=== PATIENT | male | born 1940 | race Caucasian/White ===

== ENCOUNTER 2018-06-11 20:46 | Emergency (ER) | payer OTHER ==
[~2018-06-11] VITALS: Ht 177.8 cm; Wt 93.1 kg
[2018-06-11 20:49] VITALS: TEMP 36.8; Ht 177.8 cm; Wt 93.1 kg
[2018-06-11 21:18] LABS: BASO % 0.3 %; BASO ABS # 0.02 K/uL (0-0.2); EOS % 2.9 %; IG# 0.03 K/uL (0.00-0.02); LYMPH % 27.8 %; LYMPH ABS # 1.94 K/uL (1.2-3.4); MEAN CELL VOLUME 95.9 fL (80-100); MEAN CORPUSCULAR HEMOGLOBIN 32.9 pg (25-34); MEAN CORPUSCULAR HGB CONC 34.3 g/dl (32-36); MEAN PLATELET VOLUME 9.1 fL (7.4-10.4); MONO % 11.2 %; MONO ABS # 0.78 K/uL (0.11-0.59); NEUT % 57.4 %; NEUT ABS # 4.01 K/uL (1.4-6.5); PLATELET COUNT 412 K/uL (130-400); RED CELL DISTRIBUTION WIDTH CV 12.1 % (11.5-14.5); RED CELL DISTRIBUTION WIDTH SD 42.1 fL (36.4-46.3); WHITE BLOOD COUNT 6.98 K/uL (4.8-10.8)
[2018-06-11 21:40] LABS: ALBUMIN 3.3 gm/dl (3.4-5.0); CALCIUM 10.4 mg/dl (8.5-10.1); POTASSIUM 4.4 mmol/L (3.5-5.1); TOTAL PROTEIN 8.3 gm/dl (6.4-8.2)
--- NOTE | 2018-06-11 22:15 | DIAGNOSTIC IMAGING REPORT ---
CT OF THE ABDOMEN AND PELVIS WITHOUT CONTRAST CLINICAL HISTORY: Right-sided abdominal pain. COMPARISON STUDY: No previous studies for comparison. TECHNIQUE: Axial images of the abdomen and pelvis were obtained without IV contrast. Images were reviewed in the axial, sagittal, and coronal planes. A dose lowering technique was utilized adhering to the principles of ALARA. FINDINGS: Lung bases are clear. No renal, ureteral or bladder calculi are present. There is no biliary ductal dilatation status post cholecystectomy. Evaluation of the abdomen and pelvis is suboptimal on this unenhanced exam. The liver is mildly enlarged. There is mild heterogeneity of the liver. This may reflect mild fatty infiltration. Unenhanced images of the spleen, adrenal glands and pancreas are normal. There is no evidence for a bowel obstruction. Extensive colonic diverticulosis is noted. There is possible mild infiltration adjacent to the distal descending colon. There is no free air or abscess. No suspicious osseous lesion is present. Prostate is moderately enlarged. A loop of small bowel slightly extends into a right inguinal hernia. There is no evidence for a bowel obstruction. Mild dextroscoliosis of the lumbar spine is incidentally noted. The appendix is not visualized and may be surgically absent. Extensive sigmoid diverticulosis. Equivocal infiltration adjacent to the distal sigmoid colon may reflect mild acute diverticulitis. No free air or abscess. IMPRESSION: 1. No urinary calculi or hydronephrosis. 2. No bowel obstruction. 3. Extensive sigmoid diverticulosis. Equivocal infiltration adjacent to the distal sigmoid colon may reflect mild acute diverticulitis. No free air or abscess. 4. Mild hepatomegaly and heterogeneity liver which may reflect fatty infiltration. Electronically signed by: Fredo Mckeon M.D. 06/11/2018 10:13 PM Dictated Date/Time: 06/11/2018 10:03 PM
--- NOTE | 2018-06-11 22:19 | EMERGENCY ROOM VISIT NOTE ---
History First contact with patient: 20:54 Chief Complaint: GI ASSESSMENT Stated Complaint: PAIN IN RIGHT SIDE Nursing Triage Summary: Pt reports constant RUQ abdominal pain for 4 days. Denies N/V/D. Pt reports hx of constipation with use of laxatives and stool softeners. Reports he had a large BM today. Reports he had his gallbladder and appendix surgically removed. History of Present Illness The patient is a 77 year old male who presents to the Emergency Room with complaints of right-sided abdominal pain for the past 4 days. The patient states that he has had a constant, dull pain in the right side of his abdomen. He rates the pain a 5/10. He states the pain worsens when he is sitting straight up. He denies any associated nausea/vomiting, constipation, diarrhea, pain with defecation, urinary symptoms, fever/chills, hematochezia or melena. He has had a previous appendectomy and cholecystectomy. Review of Systems A complete 10 point review of systems was reviewed with the patient with pertinent positives and negatives as per history of present illness. All else were negative. Past Medical/Surgical History Medical Problems: (1) Diabetes mellitus, type II (2) Hypertension Surgical Problems: (1) History of appendectomy (2) History of cholecystectomy Social History Smoking Status: Never Smoker Housing Status: lives with family Current/Historical Medications Scheduled Ciprofloxacin Hcl (Cipro), 500 MG PO BID Metronidazole (Flagyl), 500 MG PO TID Physical Exam Vital Signs Date Time Temp Pulse Resp B/P (MAP) Pulse Ox O2 Delivery O2 Flow Rate FiO2 06/11/18 23:18 06/11/18 22:50 83 16 143/84 92 Room Air 06/11/18 20:49 36.8 102 18 153/90 94 Room Air Physical Exam VITALS: Vitals are noted on the nurse's note and reviewed by myself. Vital signs stable. GENERAL: This is a 77-year-old male, in no acute distress, nondiaphoretic, well- developed well-nourished. SKIN: The skin was without rashes. HEART: Regular rate and rhythm without murmurs gallops or rubs. LUNGS: Clear to auscultation bilaterally without wheezes, rales or rhonchi. ABDOMEN: Positive bowel sounds x 4. Soft, nondistended. There is moderate tenderness to palpation in the right mid abdomen. No guarding or rebound tenderness. NEURO: Patient was alert and oriented to person place and time. Medical Decision & Procedures ER Provider Diagnostic Interpretation: CT OF THE ABDOMEN AND PELVIS WITHOUT CONTRAST CLINICAL HISTORY: Right-sided abdominal pain. COMPARISON STUDY: No previous studies for comparison. TECHNIQUE: Axial images of the abdomen and pelvis were obtained without IV contrast. Images were reviewed in the axial, sagittal, and coronal planes. A dose lowering technique was utilized adhering to the principles of ALARA. FINDINGS: Lung bases are clear. No renal, ureteral or bladder calculi are present. There is no biliary ductal dilatation status post cholecystectomy. Evaluation of the abdomen and pelvis is suboptimal on this unenhanced exam. The liver is mildly enlarged. There is mild heterogeneity of the liver. This may reflect mild fatty infiltration. Unenhanced images of the spleen, adrenal glands and pancreas are normal. There is no evidence for a bowel obstruction. Extensive colonic diverticulosis is noted. There is possible mild infiltration adjacent to the distal descending colon. There is no free air or abscess. No suspicious osseous lesion is present. Prostate is moderately enlarged. A loop of small bowel slightly extends into a right inguinal hernia. There is no evidence for a bowel obstruction. Mild dextroscoliosis of the lumbar spine is incidentally noted. The appendix is not visualized and may be surgically absent. Extensive sigmoid diverticulosis. Equivocal infiltration adjacent to the distal sigmoid colon may reflect mild acute diverticulitis. No free air or abscess. IMPRESSION: 1. No urinary calculi or hydronephrosis. 2. No bowel obstruction. 3. Extensive sigmoid diverticulosis. Equivocal infiltration adjacent to the distal sigmoid colon may reflect mild acute diverticulitis. No free air or abscess. 4. Mild hepatomegaly and heterogeneity liver which may reflect fatty infiltration. Laboratory Results 06/11/18 21:00 Red Blood Count 3.65, Mean Corpuscular Volume 95.9, Mean Corpuscular Hemoglobin 32.9, Mean Corpuscular Hemoglobin Concent 34.3, Mean Platelet Volume 9.1, Neutrophils (%) (Auto) 57.4, Lymphocytes (%) (Auto) 27.8, Monocytes (%) (Auto) 11.2, Eosinophils (%) (Auto) 2.9, Basophils (%) (Auto) 0.3, Neutrophils # (Auto ) 4.01, Lymphocytes # (Auto) 1.94, Monocytes # (Auto) 0.78, Eosinophils # (Auto ) 0.20, Basophils # (Auto) 0.02 06/11/18 21:00 Test 06/11/18 21:00 06/11/18 21:15 White Blood Count 6.98 K/uL (4.8-10.8) Red Blood Count 3.65 M/uL (4.7-6.1) Hemoglobin 12.0 g/dL (14.0-18.0) Hematocrit 35.0 % (42-52) Mean Corpuscular Volume 95.9 fL (80-100) Mean Corpuscular Hemoglobin 32.9 pg (25-34) Mean Corpuscular Hemoglobin Concent 34.3 g/dl (32-36) Platelet Count 412 K/uL (130-400) Mean Platelet Volume 9.1 fL (7.4-10.4) Neutrophils (%) (Auto) 57.4 % Lymphocytes (%) (Auto) 27.8 % Monocytes (%) (Auto) 11.2 % Eosinophils (%) (Auto) 2.9 % Basophils (%) (Auto) 0.3 % Neutrophils # (Auto) 4.01 K/uL (1.4-6.5) Lymphocytes # (Auto) 1.94 K/uL (1.2-3.4) Monocytes # (Auto) 0.78 K/uL (0.11-0.59) Eosinophils # (Auto) 0.20 K/uL (0-0.5) Basophils # (Auto) 0.02 K/uL (0-0.2) RDW Standard Deviation 42.1 fL (36.4-46.3) RDW Coefficient of Variation 12.1 % (11.5-14.5) Immature Granulocyte % (Auto) 0.4 % Immature Granulocyte # (Auto) 0.03 K/uL (0.00-0.02) Anion Gap 7.0 mmol/L (3-11) Est Creatinine Clear Calc Drug Dose 69.8 ml/min Estimated GFR () 83.2 Estimated GFR (Non- 71.8 BUN/Creatinine Ratio 19.5 (10-20) Calcium Level 10.4 mg/dl (8.5-10.1) Total Bilirubin 0.3 mg/dl (0.2-1) Aspartate Amino Transf (AST/SGOT) 27 U/L (15-37) Alanine Aminotransferase (ALT/SGPT) 55 U/L (12-78) Alkaline Phosphatase 249 U/L (45-117) Total Protein 8.3 gm/dl (6.4-8.2) Albumin 3.3 gm/dl (3.4-5.0) Globulin 5.0 gm/dl (2.5-4.0) Albumin/Globulin Ratio 0.7 (0.9-2) Lipase 174 U/L (73-393) Urine Color YELLOW Urine Appearance CLEAR (CLEAR) Urine pH 6.5 (4.5-7.5) Urine Specific [place] 1.026 (1.000-1.030) Urine Protein NEG (NEG) Urine Glucose (UA) NEG (NEG) Urine Ketones NEG (NEG) Urine Occult Blood NEG (NEG) Urine Nitrite NEG (NEG) Urine Bilirubin NEG (NEG) Urine Urobilinogen NEG (NEG) Urine Leukocyte Esterase NEG (NEG) Medications Administered Medications (Trade) Dose Ordered Sig/Mily Route Start Time Stop Time Status Last Admin Dose Admin Ciprofloxacin (Cipro 500MG Home Pack) 1 homepack UD ONCE PO 06/11/18 22:45 06/11/18 22:46 DC 06/11/18 23:12 1 HOMEPACK Metronidazole (Flagyl Tab) 1,000 mg NOW STAT PO 06/11/18 22:40 06/11/18 22:41 DC 06/11/18 23:12 1,000 MG Medical Decision Differential diagnosis includes bowel obstruction, gastritis, colitis, diverticulitis, constipation, herpes zoster, among others. The patient is a 77-year-old male who presents today complaining of right-sided abdominal pain. Labs revealed no leukocytosis. There is a stable anemia. Glucose is elevated. Patient admits that his glucose has been elevated on many recent visits. He is currently taking metformin. CT of the abdomen without contrast was performed due to patient's allergy. This was read by radiology and did show evidence of diverticulitis. This may be responsible for the patient's pain. He will be placed on ciprofloxacin and Flagyl. He was advised to follow-up with his PCP this week for a recheck. The patient was independently evaluated by Dr. Kyle, ED attending physician, who agreed with my assessment and treatment plan. Based on the patient's presentation and work up, I feel the patient is stable for outpatient treatment. The patient was educated to return to the emergency department for any worsening of their current condition or new/concerning symptoms. He will follow up with his PCP. Medication Reconcilliation Current Medication List: was personally reviewed by me Blood Pressure Screening Patient's blood pressure: Elevated blood pressure Blood pressure disposition: Elevated BP felt to be situational Impression Primary Impression: Diverticulitis Departure Information Dispostion Home / Self-Care Condition GOOD Prescriptions Metronidazole (Flagyl) 500 Mg Tab 500 MG PO TID for 10 Days, #30 TAB Prov: Letitia Dunlap PA-C 06/11/18 Ciprofloxacin Hcl (CIPRO) 500 Mg Tab 500 MG PO BID for 10 Days, #20 TAB Prov: Letitia Dunlap PA-C 06/11/18 Referrals Eriberto Mendoza M.D. (PCP) Patient Instructions My [facility] Additional Instructions You have been treated in the Emergency Department for your Abdominal Pain. CT scan showed evidence of diverticulitis. You were prescribed ciprofloxacin to be taken twice daily as prescribed. This is an antibiotic. All antibiotics have the potential to cause diarrhea. Stop this medication and contact a medical provider if you were to develop any significant adverse side effects including: wheezing, shortness of breath, passing out, vomiting, or a diffuse rash. Always take antibiotics as directed and COMPLETE the ENTIRE course regardless of the improvement of your symptoms. You were prescribed Flagyl to be taken 3 times daily as prescribed. This is an antibiotic. All antibiotics have the potential to cause diarrhea. Stop this medication and contact a medical provider if you were to develop any significant adverse side effects including: wheezing, shortness of breath, passing out, vomiting, or a diffuse rash. Always take antibiotics as directed and COMPLETE the ENTIRE course regardless of the improvement of your symptoms. Do not drink any alcohol with this medication, as it will make you very sick. For pain control, you can use the following [id number] medicines (if >12 yo): - Regular strength (325mg/tab) Tylenol (acetaminophen) 2 tabs every 4-6 hours as needed. Do not exceed 12 tablets in a 24 hour period. Avoid taking more than 4 grams (4000 mg) of Tylenol per day. This includes any other sources of acetaminophen you may take on a regular basis. - Regular strength (200 mg/tab) Advil (ibuprofen) 1-2 tabs every 4-6 hours as needed. Do not exceed a dose of 3200 mg per day. Drink plenty of water and stay well hydrated. If you are able to keep a clear liquid diet for the next 48 hours, you may see improvement of your symptoms. As with any trip to the Emergency Department, you should follow-up with your Primary Care Provider from today's visit. Contact Dr. Mendoza's office to schedule follow-up next week. Return to the emergency department if your symptoms persist despite treatment plan outlined above or if the following symptoms occur: Worsening abdominal pain , vomiting, fevers or any other new/concerning symptoms.
[2018-06-11] MEDS ORDERED: CIPR-255 PO (22:39)
[2018-06-11] MEDS ORDERED: METR-163 PO (22:39)
[2018-06-11] MEDS ORDERED: METRONIDAZOLE 250 MG TAB PO STA (22:40)
[2018-06-11] MEDS ORDERED: CIPROFLOXACIN 500MG HOME PACK PO ONE (22:45)
[2018-06-11 22:50] VITALS: BP 143/84; PULSE 83; O2SAT 92
[2018-06-11] MEDS ORDERED: EMPTY 8 DRAM VIAL ONE (22:54)
== END 2018-06-11 23:18 | disposition home or self-care (01) ==
LOC: C.EDB 20:48
DX: K57.32 Diverticulitis of large intestine without perforation or abscess without bleeding (principal); E11.65 Type 2 diabetes mellitus with hyperglycemia; I10 Essential (primary) hypertension

== ENCOUNTER 2021-09-06 16:31 | Inpatient (IN) ==
--- NOTE | 2021-09-06 16:42 | Emergency Department Note ---
Impression & Plan Falls Admission ED Provider Note HPI: The patient is an 81-year-old male who presents the emergency department the chief complaint of confusion. On arrival the patient is unable to provide me with much history, he is in the room by himself. He is oriented to place, he is oriented to self, he is unsure of the year, he is unsure of how old he is. On arrival to the ED the patient is hemodynamically stable, he is resting comfortably and otherwise in no acute physical distress. I did speak on the phone with patient's sister, Ros, she tells me that the patient fell this morning. They were reportedly able to get him up and back into his bed however later in the day he was increasingly confused and not at his baseline. He does have a history of dementia but she tells me that this was worse than usual. Therefore he was brought to the emergency room for further evaluation. ROS: -Neuro: Confusion beyond baseline -MSK: Ambulatory dysfunction, multiple falls *10 point review systems was conducted and is otherwise negative unless stated above *Outpatient medications and allergy history reviewed PE: General: Frail-appearing, alert, NAD HEENT: Normocephalic, atraumatic, trachea midline Eyes: Extraocular eye movement is intact, no scleral erythema Pulmonary: Clear to auscultation bilaterally, no wheezing Cardio: Regular rate and rhythm GI: Abdomen is soft, nontender : No suprapubic tenderness MSK: No evidence of trauma or malformation of the extremities, no edema, maintains flexion at the hips bilaterally without pain Skin: No evidence of rash Neuro: Alert, no focal deficits Psychiatric: Cooperative phototypesetting equipment monitor: Order placed, patient is in sinus rhythm on the monitor EKG: Time: 1651 Rate: 75 Rhythm: Sinus rhythm Intervals: PA interval 244, QRS 132, QTc 451 ST changes: No ST elevation Medical Decision Making: Patient presented to the emergency department with some confusion beyond baseline, increased ambulatory dysfunction at home, he has had multiple falls. Here in the ED his lab work does not show any evidence of leukocytosis, his lactic acid was slightly elevated, he was given IV fluids in the ED. Lab work is otherwise largely reassuring. Patient was given some IV fluids in the ED and his blood pressure which was somewhat borderline/soft in the high 90s systolic did improve to greater than 100 systolic. He remains in no respiratory distress, he is saturating well on room air. He is afebrile. Urinalysis does not show any evidence of infection. CT imaging of the head does not show any evidence of acute traumatic injuries, chest x-ray does not show any evidence of rib fractures or pneumothorax. On my reassessment the patient appears well, he is resting in bed. I discussed all the above findings with the patient's daughter at the bedside, she tells me that the patient lives at home with his elderly who is in a wheelchair and is unable to take care of him. He does have aides that come to the house daily but she states that he is no longer safe to be living at home and the family is interested in possibly placing him in a nursing facility. I discussed the above findings with the on-call hospitalist who accepted the patient for further care and social work consultation for placement in a snf. This was unable to be done directly from the ED. patient's family was in agreement the above plan the patient was admitted in stable condition. * Diagnosis: Generalized weakness, dementia, ambulatory dysfunction and multiple falls at home * Disposition: Admission Eriberto Rose DO Emergency Medicine Past Med/Surg History Medical History BPH (benign prostatic hyperplasia) CVA (cerebral vascular accident) Dementia Diabetes mellitus, type II HLD (hyperlipidemia) Hypertension Surgical History History of appendectomy History of cholecystectomy Family History Other Dementia Stroke Social History Smoking Status: Never smoker Do You Dip or Chew Tobacco: Yes (Former chewing tobacco user); Hx Alcohol Use: No Hx Substance Use: No Feels Safe at Home: Yes Allergies Allergies Allergy/AdvReac Type Severity Reaction Status Date / Time iodine Allergy Severe (FROM Verified 09/06/21 23:43 CONTRAST MEDIA)sob, sneezing, wheezing Home Meds Home Medications Medication Instructions Recorded Confirmed aspirin 81 mg tablet 81 mg PO DAILY 09/06/21 09/06/21 glipizide 10 mg tablet, extended 10 mg PO DAILY 09/06/21 09/06/21 release 24 hr linagliptin 5 mg tablet (Tradjenta) 5 mg PO DAILY 09/06/21 09/06/21 lisinopril 10 mg tablet 10 mg PO DAILY 09/06/21 09/06/21 metformin 500 mg tablet,extended 1,000 mg PO BID 09/06/21 09/06/21 release 24 hr polyethylene glycol 3350 17 gram 17 g PO DAILY PRN 09/06/21 09/06/21 oral powder packet (Miralax) tamsulosin 0.4 mg capsule 0.4 mg PO DAILY 09/06/21 09/06/21 tolterodine 4 mg capsule,extended 4 mg PO DAILY 09/06/21 09/06/21 release 24 hr (Detrol LA) Results & Data (ED) Vital Signs Vital Signs - 24 hr 09/06/21 16:38 09/06/21 17:08 09/06/21 17:15 Temperature 36.7 C Temperature Source Oral Pulse Rate 74 71 Pulse Rate from SpO2 Sensor Pulse Rhythm Regular Pulse Strength Normal Respiratory Rate 20 27 H Respiratory Effort / Characteristics Non-Labored Spontaneous Respiratory Depth Normal Respiratory Pattern Regular Blood Pressure 100/63 98/57 L Blood Pressure Mean 75 70 Blood Pressure Position Sitting Pulse Oximetry 96 95 Oxygen Delivery Method Room Air Room Air Sepsis Recent Fever Within 48 Hours No Sepsis New/Unexplained Change in Mental Status No Sepsis Action Taken by Nursing No Action Required 09/06/21 17:36 09/06/21 18:00 09/06/21 18:30 Temperature Temperature Source Pulse Rate 65 66 65 Pulse Rate from SpO2 Sensor 64 65 65 Pulse Rhythm Pulse Strength Respiratory Rate 24 25 H 24 Respiratory Effort / Characteristics Respiratory Depth Respiratory Pattern Blood Pressure 96/60 L 95/57 L Blood Pressure Mean 72 69 Blood Pressure Position Pulse Oximetry 92 93 92 Oxygen Delivery Method Room Air Room Air Room Air Sepsis Recent Fever Within 48 Hours Sepsis New/Unexplained Change in Mental Status Sepsis Action Taken by Nursing 09/06/21 19:00 09/06/21 19:30 09/06/21 20:00 Temperature Temperature Source Pulse Rate 73 69 83 Pulse Rate from SpO2 Sensor 68 70 82 Pulse Rhythm Pulse Strength Respiratory Rate 28 H 28 H 22 Respiratory Effort / Characteristics Respiratory Depth Respiratory Pattern Blood Pressure 94/57 L 111/65 108/70 Blood Pressure Mean 69 80 82 Blood Pressure Position Pulse Oximetry 94 97 97 Oxygen Delivery Method Room Air Room Air Room Air Sepsis Recent Fever Within 48 Hours Sepsis New/Unexplained Change in Mental Status Sepsis Action Taken by Nursing 09/06/21 20:30 09/06/21 21:00 09/06/21 21:30 Temperature Temperature Source Pulse Rate 82 72 74 Pulse Rate from SpO2 Sensor 82 71 Pulse Rhythm Pulse Strength Respiratory Rate 23 24 23 Respiratory Effort / Characteristics Respiratory Depth Respiratory Pattern Blood Pressure 121/69 124/83 Blood Pressure Mean 86 96 Blood Pressure Position Pulse Oximetry 96 97 Oxygen Delivery Method Room Air Room Air Sepsis Recent Fever Within 48 Hours Sepsis New/Unexplained Change in Mental Status Sepsis Action Taken by Nursing 09/06/21 22:00 Temperature Temperature Source Pulse Rate 69 Pulse Rate from SpO2 Sensor 69 Pulse Rhythm Pulse Strength Respiratory Rate 24 Respiratory Effort / Characteristics Respiratory Depth Respiratory Pattern Blood Pressure 124/74 Blood Pressure Mean 90 Blood Pressure Position Pulse Oximetry 98 Oxygen Delivery Method Room Air Sepsis Recent Fever Within 48 Hours Sepsis New/Unexplained Change in Mental Status Sepsis Action Taken by Nursing Laboratory Data Result diagrams: 09/06/21 16:58 09/06/21 16:58 Lab Results 09/06/21 09/06/21 09/06/21 Range/Units 16:58 16:58 16:58 WBC 9.20 (4.8-10.8) K/uL RBC 4.04 L (4.7-6.1) M/uL Hgb 13.3 L (14.0-18.0) g/dL Hct 38.5 L (42-52) % MCV 95.3 (80-100) fL MCH 32.9 (25-34) pg MCHC 34.5 (32-36) g/dL RDW Std Deviation 43.6 (36.4-46.3) fL RDW Coeff of Divina 12.6 (11.5-14.5) % Plt Count 346 (130-400) K/uL MPV 9.3 (7.4-10.4) fL Immature Gran % (Auto) 0.3 % Neut % (Auto) 60.4 % Lymph % (Auto) 23.8 % [place] % (Auto) 14.9 % Eos % (Auto) 0.5 % Baso % (Auto) 0.1 % Neut # (Auto) 5.55 (1.4-6.5) K/uL Lymph # (Auto) 2.19 (1.2-3.4) K/uL [place] # (Auto) 1.37 H (0.11-0.59) K/uL Eos # (Auto) 0.05 (0-0.5) K/uL Baso # (Auto) 0.01 (0-0.2) K/uL Immature Gran # (Auto) 0.03 H (0.00-0.02) K/uL Sodium 136 (136-145) mmol/L Potassium 4.1 (3.5-5.1) mmol/L Chloride 105 (98-107) mmol/L Carbon Dioxide 26 (21-32) mmol/L Anion Gap 5.0 (3-11) BUN 18 (7-18) mg/dl Creatinine 0.95 (0.6-1.4) mg/dl Est Cr Clr Drug Dosing 64.1 ml/min Est GFR ( Amer) 86.1 ml/min Est GFR (Non-Af Amer) 74.2 ml/min BUN/Creatinine Ratio 18.9 (10-20) Glucose 132 H (70-99) mg/dl Lactate 2.7 H* (0.4-2.0) mmol/L Calcium 9.9 (8.5-10.1) mg/dl Magnesium 2.3 (1.8-2.4) mg/dl Total Bilirubin 0.6 (0.2-1) mg/dl AST 19 (15-37) U/L ALT 20 (12-78) U/L Alkaline Phosphatase 74 (45-117) U/L Total Protein 7.3 (6.4-8.2) gm/dl Albumin 3.4 (3.4-5.0) gm/dl Globulin 3.9 (2.5-4.0) gm/dl Albumin/Globulin Ratio 0.9 (0.9-2) TSH 2.010 (0.300-4.500) uIu/ml Specimen Hemolysis Urine Color Urine Appearance (Clear) Urine pH (4.5-7.5) Ur Specific [place] (1.000-1.030) Urine Protein (Negative) Urine Glucose (UA) (Negative) Urine Ketones (Negative) Urine Blood (Negative) Urine Nitrite (Negative) Urine Bilirubin (Negative) Urine Urobilinogen (Negative) Ur Leukocyte Esterase (Negative) Urine WBC (Auto) (0-5) /hpf Urine RBC (Auto) (0-4) /hpf U Hyaline Cast (Auto) (0-5) /lpf U Epithel Cells (Auto) (0-5) /lpf Urine Bacteria (Auto) (Negative) COVID-19 Eval Order SARS-CoV-2 (PCR) (Negative) 09/06/21 09/06/21 09/06/21 Range/Units 19:35 19:42 21:12 WBC (4.8-10.8) K/uL RBC (4.7-6.1) M/uL Hgb (14.0-18.0) g/dL Hct (42-52) % MCV (80-100) fL MCH (25-34) pg MCHC (32-36) g/dL RDW Std Deviation (36.4-46.3) fL RDW Coeff of Divina (11.5-14.5) % Plt Count (130-400) K/uL MPV (7.4-10.4) fL Immature Gran % (Auto) % Neut % (Auto) % Lymph % (Auto) % [place] % (Auto) % Eos % (Auto) % Baso % (Auto) % Neut # (Auto) (1.4-6.5) K/uL Lymph # (Auto) (1.2-3.4) K/uL [place] # (Auto) (0.11-0.59) K/uL Eos # (Auto) (0-0.5) K/uL Baso # (Auto) (0-0.2) K/uL Immature Gran # (Auto) (0.00-0.02) K/uL Sodium (136-145) mmol/L Potassium (3.5-5.1) mmol/L Chloride (98-107) mmol/L Carbon Dioxide (21-32) mmol/L Anion Gap (3-11) BUN (7-18) mg/dl Creatinine (0.6-1.4) mg/dl Est Cr Clr Drug Dosing ml/min Est GFR ( Amer) ml/min Est GFR (Non-Af Amer) ml/min BUN/Creatinine Ratio (10-20) Glucose (70-99) mg/dl Lactate 2.1 H* (0.4-2.0) mmol/L Calcium (8.5-10.1) mg/dl Magnesium (1.8-2.4) mg/dl Total Bilirubin (0.2-1) mg/dl AST (15-37) U/L ALT (12-78) U/L Alkaline Phosphatase (45-117) U/L Total Protein (6.4-8.2) gm/dl Albumin (3.4-5.0) gm/dl Globulin (2.5-4.0) gm/dl Albumin/Globulin Ratio (0.9-2) TSH (0.300-4.500) uIu/ml Specimen Hemolysis Urine Color Dark Yellow Urine Appearance Clear (Clear) Urine pH 5.0 (4.5-7.5) Ur Specific [place] 1.029 (1.000-1.030) Urine Protein 1+ H (Negative) Urine Glucose (UA) 1+ H (Negative) Urine Ketones 1+ H (Negative) Urine Blood Negative (Negative) Urine Nitrite Negative (Negative) Urine Bilirubin 1+ H (Negative) Urine Urobilinogen Negative (Negative) Ur Leukocyte Esterase Negative (Negative) Urine WBC (Auto) 1-5 (0-5) /hpf Urine RBC (Auto) 0-4 (0-4) /hpf U Hyaline Cast (Auto) 1-5 (0-5) /lpf U Epithel Cells (Auto) 10-20 H (0-5) /lpf Urine Bacteria (Auto) Negative (Negative) COVID-19 Eval Order Covid19 at [facility] SARS-CoV-2 (PCR) (Negative) 09/06/21 Range/Units 21:12 WBC (4.8-10.8) K/uL RBC (4.7-6.1) M/uL Hgb (14.0-18.0) g/dL Hct (42-52) % MCV (80-100) fL MCH (25-34) pg MCHC (32-36) g/dL RDW Std Deviation (36.4-46.3) fL RDW Coeff of Divina (11.5-14.5) % Plt Count (130-400) K/uL MPV (7.4-10.4) fL Immature Gran % (Auto) % Neut % (Auto) % Lymph % (Auto) % [place] % (Auto) % Eos % (Auto) % Baso % (Auto) % Neut # (Auto) (1.4-6.5) K/uL Lymph # (Auto) (1.2-3.4) K/uL [place] # (Auto) (0.11-0.59) K/uL Eos # (Auto) (0-0.5) K/uL Baso # (Auto) (0-0.2) K/uL Immature Gran # (Auto) (0.00-0.02) K/uL Sodium (136-145) mmol/L Potassium (3.5-5.1) mmol/L Chloride (98-107) mmol/L Carbon Dioxide (21-32) mmol/L Anion Gap (3-11) BUN (7-18) mg/dl Creatinine (0.6-1.4) mg/dl Est Cr Clr Drug Dosing ml/min Est GFR ( Amer) ml/min Est GFR (Non-Af Amer) ml/min BUN/Creatinine Ratio (10-20) Glucose (70-99) mg/dl Lactate (0.4-2.0) mmol/L Calcium (8.5-10.1) mg/dl Magnesium (1.8-2.4) mg/dl Total Bilirubin (0.2-1) mg/dl AST (15-37) U/L ALT (12-78) U/L Alkaline Phosphatase (45-117) U/L Total Protein (6.4-8.2) gm/dl Albumin (3.4-5.0) gm/dl Globulin (2.5-4.0) gm/dl Albumin/Globulin Ratio (0.9-2) TSH (0.300-4.500) uIu/ml Specimen Hemolysis Urine Color Urine Appearance (Clear) Urine pH (4.5-7.5) Ur Specific [place] (1.000-1.030) Urine Protein (Negative) Urine Glucose (UA) (Negative) Urine Ketones (Negative) Urine Blood (Negative) Urine Nitrite (Negative) Urine Bilirubin (Negative) Urine Urobilinogen (Negative) Ur Leukocyte Esterase (Negative) Urine WBC (Auto) (0-5) /hpf Urine RBC (Auto) (0-4) /hpf U Hyaline Cast (Auto) (0-5) /lpf U Epithel Cells (Auto) (0-5) /lpf Urine Bacteria (Auto) (Negative) COVID-19 Eval Order SARS-CoV-2 (PCR) NEGATIVE (Negative) Administered Medications Lactated Ringer's (Lr) 1,000 mls @ 250 mls/hr IV .Q4H ONE Stop: 09/07/21 00:24 Last Admin: 09/06/21 22:05 Dose: 250 mls/hr Documented by: [id number] Discontinued Medications Sodium Chloride (Nss) 500 mls @ 999 mls/hr IV .Q31M DAQUAN Stop: 09/06/21 17:15 Last Infusion: 09/06/21 17:30 Dose: 0 mls/hr Documented by: [id number] Admin: 09/06/21 16:59 Dose: 999 mls/hr Documented by: [id number] Imaging Data Radiologist's Impression: Chest X-Ray 09/06/21 16:39 XR chest 1V portable CLINICAL HISTORY: weakness TECHNIQUE: Single frontal radiograph of the chest was obtained. Comparison: None available at the time of this dictation. FINDINGS: No lines and tubes are seen. The cardiomediastinal silhouette is normal. The lungs are clear. No evidence of pleural effusion or pneumothorax. IMPRESSION: No acute chest disease. ACT 112: Negative or not required by law. Electronically signed by: Jayesh Carroll M.D. 09/06/2021 5:[address] 09/06/21 16:39 CT head/brain wo con CLINICAL HISTORY: AMS Technique: Contiguous axial CT images of the head were acquired from the base of the skull to the vertex without intravenous contrast administration. Images were viewed in brain, subdural and bone windows. Automated dose lowering techniques and/or adjustment according to patient size were utilized for this exam. Comparison: None available at the time of this dictation. Findings: Areas of decreased attenuation are present in the periventricular and subcortical white matter bilaterally consistent with small vessel ischemic disease. Generalized cerebral atrophy with commensurate enlargement of the ventricles, sulci, and cisterns is also present. There is no acute intracranial hemorrhage or evidence of acute territorial infarction. No shift of the midline structures, mass effect, or extra-axial abnormalities are shown. Atherosclerotic calcifications are present in the intracranial segments of the internal carotid arteries. A focus of encephalomalacia within the left occipital lobe. Imaged portions of the paranasal sinuses and mastoid air cells are clear. The orbits appear normal. There are no acute fractures of the calvaria or scalp swelling. Impression: No acute intracranial hemorrhage, evidence of acute territorial infarction, or other acute intracranial disease process. Old infarct in the left occipital lobe. ACT 112: Negative or not required by law. Electronically signed by: Jayesh Carroll M.D. 09/06/2021 5:47 PM Discharge Plan Visit Data Chief Complaint: Confusion Stated Complaint: CONFUSION, FALLS X 10 TODAY ED Provider: Eriberto Rose Discharge Problem: Falls Discharge Instructions Interventions: ED Discharge Assessment Last Done: 09/06/21 22:54 Discharge Problem: Falls Qualifiers: Encounter type: initial encounter Qualified Code(s): W19.XXXA - Unspecified fall, initial encounter
[2021-09-06] MEDS ORDERED: SODIUM CHLORIDE 0.9% 500 ML IV SCH (16:45)
[2021-09-06 17:07] LABS: Basophils # (auto) 0.01 K/uL (0-0.2); Basophils % (auto) 0.1 %; Eosinophils # (auto) 0.05 K/uL (0-0.5); Eosinophils % (auto) 0.5 %; Hematocrit (blood only) 38.5 % (42-52); Hemoglobin 13.3 g/dL (14.0-18.0); Immature Granulocytes # (auto) 0.03 K/uL (0.00-0.02); Immature Granulocytes % (auto) 0.3 %; Lymphocytes # (auto) 2.19 K/uL (1.2-3.4); Lymphocytes % (auto) 23.8 %; Mean Corpuscular Hemoglobin 32.9 pg (25-34); Mean Corpuscular Hgb Conc 34.5 g/dL (32-36); Mean Corpuscular Volume 95.3 fL (80-100); Mean Platelet Volume 9.3 fL (7.4-10.4); Monocytes # (auto) 1.37 K/uL (0.11-0.59); Monocytes % (auto) 14.9 %; Neutrophils # (auto) 5.55 K/uL (1.4-6.5); Neutrophils % (auto) 60.4 %; Platelet Count 346 K/uL (130-400); RDW Coefficient of Variation 12.6 % (11.5-14.5); RDW Standard Deviation 43.6 fL (36.4-46.3); Red Blood Count 4.04 M/uL (4.7-6.1)
[2021-09-06 17:27] LABS: Albumin Level 3.4 gm/dl (3.4-5.0); BUN Creatinine Ratio 18.9 (10-20); Calcium 9.9 mg/dl (8.5-10.1); Creatinine Clr Calc Pharmacy 64.1 ml/min; Est GFR (African American) 86.1 ml/min; Est GFR (Non-African American) 74.2 ml/min; Potassium 4.1 mmol/L (3.5-5.1)
--- NOTE | 2021-09-06 17:33 | XRay Report ---
XR chest 1V portable CLINICAL HISTORY: weakness TECHNIQUE: Single frontal radiograph of the chest was obtained. Comparison: None available at the time of this dictation. FINDINGS: No lines and tubes are seen. The cardiomediastinal silhouette is normal. The lungs are clear. No evid ence of pleural effusion or pneumothorax. IMPRESSION: No acute chest disease. ACT 112: Negative or not required by law. Electronically signed by: Jayesh Carroll M.D. 09/06/2021 5:32 PM
[2021-09-06 17:40] LABS: Albumin Globulin Ratio 0.9 (0.9-2); Bilirubin,Total 0.6 mg/dl (0.2-1); Globulin 3.9 gm/dl (2.5-4.0); Thyroid Stimulating Hormone 2.01 uIu/ml (0.300-4.500); Total Protein 7.3 gm/dl (6.4-8.2)
--- NOTE | 2021-09-06 17:48 | CT Scan Report ---
CT head/brain wo con CLINICAL HISTORY: AMS Technique: Contiguous axial CT images of the head were acquired from the base of the skull to the majo kathy without intravenous contrast administration. Images were viewed [facility] brain, subdural and [facility]. Automated dose lowering techniques and/or adjustment according to patient size were utilized for this exam. Comparison: None available at the time of this dictation. Findings: Areas of decreased attenuation are present in the periventricular and subcortical white matter bilate rally consistent with small vessel ischemic disease. Generalized cerebral atrophy with commensurate e nlargement of the ventricles, sulci, and cisterns is also present. There is no acute intracranial hem orrhage or evidence of acute territorial infarction. No shift of the midline structures, mass effect, or extra-axial abnormalities are shown. Atherosclerotic calcifications are present in the intracran ial segments of the internal carotid arteries. A focus of encephalomalacia within the left occipital lobe. Imaged portions of the paranasal sinuses and mastoid air cells are clear. The orbits appear normal. There are no acute fractures of the calvaria or scalp swelling. Impression: No acute intracranial hemorrhage, evidence of acute territorial infarction, or other acute intracrani al disease process. Old infarct in the left occipital lobe. ACT 112: Negative or not required by law. Electronically signed by: Jayesh Carroll M.D. 09/06/2021 5:47 PM
[2021-09-06 19:55] LABS: Appearance Urine Clear (Clear); Bacteria Urine Automated Negative (Negative); Blood Urine Negative (Negative); Color Urine Dark Yellow; Glucose Urine UA 1+ (Negative); Ketones Urine 1+ (Negative); Leukocyte Esterase Urine Negative (Negative); Nitrite Urine Negative (Negative); Protein Urine 1+ (Negative); RBC Urine Automated 0-4 /hpf (0-4); Specific Gravity Urine 1.029 (1.000-1.030); Urobilinogen Urine Negative (Negative)
[2021-09-06 19:57] LABS: Bilirubin Urine 1+ (Negative)
[2021-09-06] MEDS ORDERED: LACTATED RINGER'S 1,000 ML IV ONE (20:25)
--- NOTE | 2021-09-06 20:37 | History & Physical Report ---
Date of Service September 06, 2021 Assessment & Plan (1) Falls: (2) Altered mental status: (3) Dementia: (4) Diabetes mellitus, type II: (5) Hypertension: (6) CVA (cerebral vascular accident): (7) BPH (benign prostatic hyperplasia): Plan: HPI, PMH, PE, med rec completed by Vannesa Saleh PA-C. Assessment and plan per Dr. Miranda. See addendum History of Present Illness Chief Complaint: Confusion Primary Care Provider: Eriberto Mendoza MD Male with PMH HTN, HLD, COPD, DM II, initial show CVA on imaging, BPH, dementia presented to ER with increased confusion. History obtained from patient's daughter secondary to patient's current mental status. Reports over the past year have noticed steady decline in cognitive status with increased confusion which has worsened over the past 6 months. Reports the past week with increased confusion. Reports baseline patient knows immediate family members. Daughter states past week patient has been having increased trouble with ambulation in past couple of days has been needing to hold onto objects while walking. Today he had 2 falls within an hour. She reports he did hit his head but denies any loss of consciousness. Daughter is trying to care for patient as well as patient's who has breast cancer and is wheelchair-bound. Daughter is worried about patient's safety with his recurrent falls. Patient recently saw [facility] neurology-Dr. Gallardo and diagnosed with dementia, there was consideration for possible parkinsonian. Patient's daughter reports that he has been refusing to take medications most days. Today he had metformin and lisinopril only. Eating and drinking fairly well per daughter. She denies any known vomiting or diarrhea or fever. Reports urinary incontinence at baseline. Denies behavioral issues or wandering. Patient awake and oriented to person, and knows he is in hospital reports that it is [facility]. ED is currently denying any headache, dizziness, vision changes, chest pain, shortness of breath, nausea, abdominal pain, extremity pain, cough, dysuria. In ER patient afebrile, BP 100/63, 96% on room air. No leukocytosis. Initial lactate 2.7 down to 2.1. UA 1+ ketones, 1+ protein. CT head: No acute intracranial findings. Chest x-ray no acute infiltrate. In ER was given 500 mL NSS. Allergies Allergy/AdvReac Type Severity Reaction Status Date / Time iodine Allergy Severe (FROM Verified 09/06/21 23:43 CONTRAST MEDIA)sob, sneezing, wheezing Home Medications Medication Instructions Recorded Confirmed Type aspirin 81 mg tablet 81 mg PO DAILY 09/06/21 09/06/21 History glipizide 10 mg tablet, extended 10 mg PO DAILY 09/06/21 09/06/21 History release 24 hr linagliptin 5 mg tablet (Tradjenta) 5 mg PO DAILY 09/06/21 09/06/21 History lisinopril 10 mg tablet 10 mg PO DAILY 09/06/21 09/06/21 History metformin 500 mg tablet,extended 1,000 mg PO BID 09/06/21 09/06/21 History release 24 hr polyethylene glycol 3350 17 gram 17 g PO DAILY PRN 09/06/21 09/06/21 History oral powder packet (Miralax) tamsulosin 0.4 mg capsule 0.4 mg PO DAILY 09/06/21 09/06/21 History tolterodine 4 mg capsule,extended 4 mg PO DAILY 09/06/21 09/06/21 History release 24 hr (Detrol LA) Past Med/Surg History Medical History BPH (benign prostatic hyperplasia) CVA (cerebral vascular accident) Dementia Diabetes mellitus, type II HLD (hyperlipidemia) Hypertension Surgical History History of appendectomy History of cholecystectomy Family History Other Dementia Stroke Social History Smoking Status: Never smoker Do You Dip or Chew Tobacco: No (Former chewing tobacco user); Hx Alcohol Use: No Hx Substance Use: No Preferred Language: [place] Communication Ability: Effective Lot Attendant Required: No Beliefs That Will Affect Care: None Current Living Situation: Family Other Information That Helps Us Care for You: No Feels Safe at Home: Yes Review of Systems Review of Systems: Unobtainable due to cognitive status Physical Exam Physical Exam: General: no distress, WDWN Head: normocephalic, atraumatic Eyes: PERRL, EOM's intact, conjunctiva non-injected, anicteric ENT: normal inspection external ears, nose, mucous membranes dry Neck: supple, trachea midline Lungs: clear, no respiratory distress, no wheezing/rhonchi/rales CV: RRR, no murmur, no pretibial edema Abd: normal BS, soft, non-tender Ext: no cyanosis, no calf tenderness Neuro: Alert, oriented to person, knows in [facility], reports its 1992, does not know month or president Skin: warm, dry; left foot: plantar surface with ulcer without surrounding erythema, without discharge Results & Data Results & Data ([facility]) Vital Signs (Past 12 Hours) Vital Signs Temp Pulse Resp BP Pulse Ox 09/06/21 19:00 73 28 H 94/57 L 94 09/06/21 18:30 65 24 95/57 L 92 09/06/21 18:00 66 25 H 96/60 L 93 09/06/21 17:36 65 24 92 09/06/21 17:08 71 27 H 98/57 L 95 09/06/21 16:38 36.7 C 74 20 100/63 96 Laboratory Results Short CBC 09/06/21 09/06/21 09/06/21 Range/Units 16:58 16:58 19:42 WBC 9.20 (4.8-10.8) K/uL Hgb 13.3 L (14.0-18.0) g/dL Hct 38.5 L (42-52) % Plt Count 346 (130-400) K/uL Lactate 2.7 H* 2.1 H* (0.4-2.0) mmol/L BMP 09/06/21 16:58 Sodium 136 Potassium 4.1 Chloride 105 Carbon Dioxide 26 BUN 18 Creatinine 0.95 Glucose 132 H Calcium 9.9 Liver Function 09/06/21 Range/Units 16:58 Total Bilirubin 0.6 (0.2-1) mg/dl AST 19 (15-37) U/L ALT 20 (12-78) U/L Alkaline Phosphatase 74 (45-117) U/L Albumin 3.4 (3.4-5.0) gm/dl Urine 09/06/21 Range/Units 19:35 Urine Color Dark Yellow Urine Appearance Clear (Clear) Urine pH 5.0 (4.5-7.5) Ur Specific [place] 1.029 (1.000-1.030) Urine Protein 1+ H (Negative) Urine Glucose (UA) 1+ H (Negative) Diagnostic Findings Chest X-Ray 09/06/21 16:39 XR chest 1V portable CLINICAL HISTORY: weakness TECHNIQUE: Single frontal radiograph of the chest was obtained. Comparison: None available at the time of this dictation. FINDINGS: No lines and tubes are seen. The cardiomediastinal silhouette is normal. The lungs are clear. No evidence of pleural effusion or pneumothorax. IMPRESSION: No acute chest disease. ACT 112: Negative or not required by law. Electronically signed by: Jayesh Carroll M.D. 09/06/2021 5:[address] 09/06/21 16:39 CT head/brain wo con CLINICAL HISTORY: AMS Technique: Contiguous axial CT images of the head were acquired from the base of the skull to the vertex without intravenous contrast administration. Images were viewed in brain, subdural and bone windows. Automated dose lowering techniques and/or adjustment according to patient size were utilized for this exam. Comparison: None available at the time of this dictation. Findings: Areas of decreased attenuation are present in the periventricular and subcortical white matter bilaterally consistent with small vessel ischemic disease. Generalized cerebral atrophy with commensurate enlargement of the ventricles, sulci, and cisterns is also present. There is no acute intracranial hemorrhage or evidence of acute territorial infarction. No shift of the midline structures, mass effect, or extra-axial abnormalities are shown. Atherosclerotic calcifications are present in the intracranial segments of the internal carotid arteries. A focus of encephalomalacia within the left occipital lobe. Imaged portions of the paranasal sinuses and mastoid air cells are clear. The orbits appear normal. There are no acute fractures of the calvaria or scalp swelling. Impression: No acute intracranial hemorrhage, evidence of acute territorial infarction, or other acute intracranial disease process. Old infarct in the left occipital lobe. ACT 112: Negative or not required by law. Electronically signed by: Jayesh Carroll M.D. 09/06/2021 5:47 PM Supervising Physician Co-Signing Physician Notes IM ATTENDING : Patient seen and examined. History obtained from patient, family, and records. Limited history from patient secondary to dementia. Preceding documentation by Ms. Vannesa Saleh PA-C reviewed. FINAL ASSESSMENT AND PLAN as follows : Transient hypotension possibly from hypovolemia, mild clinical dehydration Lactic acidosis secondary to above Recurrent falls Worsening functional disability from dementia as per daughter COPD, pulmonary status stable Hypertension, slight elevated hx CVA as per records Hyperlipidemia, statin intolerance DM2 on oral medications, suboptimal control as of recent hemoglobin A1c of 8.21 Mar 2021 OBS Medical telemetry given transient hypotension IVF, follow lactic acid Appropriate to hold home BP meds for now until patient euvolemic Basal insulin, ISS BG goal 1 10-1 40, carb count coverage, update hemoglobin A1c PT OT eval Social service RE discharge planning/possible placement (Patient family interested at moving patient to [facility].) DVT prophylaxis. Lovenox subcu Full code as per daughter. Patient's daughter requesting updates from providers. Ms. Elyse Pelaez, contact #[phone]. Text document was generated using [employer] voice recognition software. It may contain grammatical or spelling errors. Kindly contact undersigned for clarification of any documentation item in question.
[2021-09-06 21:07] LABS: Magnesium 2.3 mg/dl (1.8-2.4)
[2021-09-06] MEDS ORDERED: PROMETHAZINE HCL 6.25 MG in SODIUM CHLORIDE 0.9% 50 ML IV PRN (23:51)
[2021-09-06] MEDS ORDERED: DEXTROSE 50% 50 ML SYRINGE IV PRN (23:51)
[2021-09-06] MEDS ORDERED: GLUCAGON FOR INJ 1 MG VIAL SQ PRN (23:51)
[2021-09-06] MEDS ORDERED: GLUCOSE 40% GEL 15 GM TUBE PO PRN (23:51)
[2021-09-06] MEDS ORDERED: ACETAMINOPHEN 325 MG TAB PO PRN (23:51)
[2021-09-06] MEDS ORDERED: CARBOHYDRATES FOR HYPOGLYCEMIA PO PRN (23:51)
[2021-09-06] MEDS ORDERED: GLUCOSE 10 TABS/TUBE PO PRN (23:51)
[2021-09-07] MEDS: INSULIN ASPART 100 UNITS/ML 3 ML PEN SC SCH ×5 (00:29→20:47)
[2021-09-07] MEDS ORDERED: LACTATED RINGER'S 1,000 ML IV ONE (01:59)
[2021-09-07 05:29] LABS: Basophils # (auto) 0.01 K/uL (0-0.2); Basophils % (auto) 0.1 %; Eosinophils # (auto) 0.21 K/uL (0-0.5); Hematocrit (blood only) 35.1 % (42-52); Hemoglobin 11.8 g/dL (14.0-18.0); Immature Granulocytes # (auto) 0.01 K/uL (0.00-0.02); Immature Granulocytes % (auto) 0.1 %; Lymphocytes # (auto) 2.13 K/uL (1.2-3.4); Mean Corpuscular Hemoglobin 31.8 pg (25-34); Mean Corpuscular Hgb Conc 33.6 g/dL (32-36); Mean Corpuscular Volume 94.6 fL (80-100); Monocytes # (auto) 1.15 K/uL (0.11-0.59); Monocytes % (auto) 16.2 %; Neutrophils % (auto) 50.6 %; Platelet Count 315 K/uL (130-400); RDW Coefficient of Variation 12.7 % (11.5-14.5); RDW Standard Deviation 43.9 fL (36.4-46.3); Red Blood Count 3.71 M/uL (4.7-6.1); White Blood Count 7.11 K/uL (4.8-10.8)
[2021-09-07 05:47] LABS: BUN Creatinine Ratio 19.8 (10-20); Calcium 9.3 mg/dl (8.5-10.1); Creatinine Clr Calc Pharmacy 88.3 ml/min; Est GFR (African American) 102.5 ml/min; Est GFR (Non-African American) 88.4 ml/min; Potassium 3.6 mmol/L (3.5-5.1)
[2021-09-07 07:42] LABS: Estimated Average Glucose 177 mg/dl; Hemoglobin A1C 7.8 % (4.5-5.6)
[2021-09-07] MEDS ORDERED: Influenza Vaccine-High Dose (Fluzone-HD) PF 65+ 0.7 ML SYR IM ONE (08:00)
[2021-09-07] MEDS: ENOXAPARIN INJ 30 MG/0.3 ML SYR SQ SCH ×2 (08:31→08:36)
[2021-09-07] MEDS: TOLTERODINE TARTRATE LA 4 MG CAPCR PO SCH (08:32)
[2021-09-07] MEDS: ASPIRIN 81 MG ECTAB PO SCH (08:32)
[2021-09-07] MEDS: TAMSULOSIN HCL 0.4 MG CAP PO SCH (08:32)
[2021-09-07] MEDS ORDERED: INSULIN GLARGINE SOLOSTAR 100 UNITS/ML 3 ML PEN SC SCH (09:00)
--- NOTE | 2021-09-07 14:02 | Electrocardiogram Report ---
Test Reason : Blood Pressure : / mmHG Vent. Rate : 075 BPM Atrial Rate : 075 BPM P-R Int : 244 ms QRS Dur : 132 ms QT Int : 404 ms P-R-T Axes : 048 089 055 degrees QTc Int : 451 ms Sinus rhythm with 1st degree A-V block Right bundle branch block Abnormal ECG When compared with ECG of 28-SEP-2005 22:22, NV interval has increased Right bundle branch block is now Present Confirmed by Valdemar Butler ([id number]) on 09/07/2021 2:02:04 PM Referred By: Eriberto Mendoza Confirmed By:Valdemar Butler
--- NOTE | 2021-09-07 15:44 | Hospitalist Progress Note ---
Date of Service September 07, 2021 Assessment & Plan (1) Falls: Plan: recurrent, etiology multifactorial, PT/OT with planned placement after discharge. Case management to assist with this. (2) Dementia: Plan: High risk for delirium, cont reorienting when necessary (3) Diabetes mellitus, type II: Plan: A1C of 7.8. cont novolog for coverage. Glargine stopped (4) Hypertension: Plan: chronic, controlled, cont current therapy. (5) CVA (cerebral vascular accident): Plan: cont medical management including aspirin and statin therapy. (6) BPH (benign prostatic hyperplasia): Plan: Cont tamsulosin per home regimen. (7) DVT prophylaxis: Plan: Lovenox Full Code Dispo-to SNF DO Anup Schwartz Hospitalist Admission and Anticipated Discharge Date Admission Date: September 06, 2021 Subjective 81 yo M with a history of dementia with recent increased confusion per daughter. Increased falls at home recently. Cannot obtain ROS or history from patient 2/2 dementia He is not delirious and is answering questions appropriately per nurse he was difficult to redirect and kept trying to climb out of bed. Review of Systems Review of Systems: cannot obtain 2/2 dementia Physical Exam Physical Exam: CONSTITUTIONAL: WNWD, vitals as above, generally well- appearing EYES: normal conjunctivae, no scleral icterus ENT: external ear and nose normal NECK: trachea midline RESPIRATORY: clear to auscultation bilaterally, no crackles, rales or wheezes, normal respiratory effort CARDIOVASCULAR: regular rate and rhythm, S1 and 2 heard without murmurs, gallops or rubs, no JVD, no peripheral edema GASTROINTESTINAL: soft, nontender, ND, no guarding. MUSCULOSKELETAL: strength 5/5 throughout, head is normocephalic and atraumatic SKIN: warm and dry NEUROLOGIC: CN 2-12 grossly intact, somewhat sleepy, normal speech, no tremor PSYCHIATRIC: alert cooperative and oriented to person Results & Data Results & Data ([facility]) Vital Signs (Past 12 Hours) Vital Signs Temp Pulse Pulse Resp BP Pulse Ox 09/07/21 15:37 36.6 C 77 18 152/83 H 97 09/07/21 11:32 36.5 C 68 16 132/77 92 09/07/21 07:34 69 09/07/21 07:00 36.5 C 65 16 147/72 H 93 09/07/21 04:00 36.7 C 64 18 120/62 93 Laboratory Results Short CBC 09/06/21 09/07/21 Range/Units 16:58 05:18 WBC 9.20 7.11 (4.8-10.8) K/uL Hgb 13.3 L 11.8 L (14.0-18.0) g/dL Hct 38.5 L 35.1 L (42-52) % Plt Count 346 315 (130-400) K/uL BMP 09/06/21 09/07/21 16:58 05:18 Sodium 136 138 Potassium 4.1 3.6 Chloride 105 107 Carbon Dioxide 26 28 BUN 18 14 Creatinine 0.95 0.69 Glucose 132 H 115 H Calcium 9.9 9.3 Liver Function 09/06/21 Range/Units 16:58 Total Bilirubin 0.6 (0.2-1) mg/dl AST 19 (15-37) U/L ALT 20 (12-78) U/L Alkaline Phosphatase 74 (45-117) U/L Albumin 3.4 (3.4-5.0) gm/dl Urine 09/06/21 Range/Units 19:35 Urine Color Dark Yellow Urine Appearance Clear (Clear) Urine pH 5.0 (4.5-7.5) Ur Specific [place] 1.029 (1.000-1.030) Urine Protein 1+ H (Negative) Urine Glucose (UA) 1+ H (Negative) Medications Administered Current Inpatient Medications Acetaminophen (Acetaminophen 325 Mg Tab) 650 mg PO Q4H PRN PRN Reason: Pain or Fever Stop: 10/06/21 23:50 Aspirin (Aspirin 81 Mg Ectab) 81 mg PO DAILY DAQUAN Stop: 10/07/21 08:59 Last Admin: 09/07/21 08:32 Dose: 81 mg Documented by: Dextrose (Dextrose 50% 50 Ml Syringe) 25 - 50 ml IV UD PRN; Protocol PRN Reason: Hypoglycemia Protocol Stop: 10/06/21 23:50 Enoxaparin Sodium (Enoxaparin Inj 30 Mg/0.3 Ml Syr) 30 mg SQ QAM DAQUAN Stop: 10/07/21 08:59 Last Admin: 09/07/21 08:36 Dose: Not Given Documented by: Glucagon (Glucagon For Inj 1 Mg Vial) 1 mg SQ UD PRN; Protocol PRN Reason: Hypoglycemia Protocol Stop: 10/06/21 23:50 Glucose (Glucose 10 Tabs/Tube) 4 - 8 tabs PO UD PRN; Protocol PRN Reason: Hypoglycemia Protocol Stop: 10/06/21 23:50 Glucose (Glucose 40% Gel 15 Gm Tube) 15 - 30 gm PO UD PRN; Protocol PRN Reason: Hypoglycemia Protocol Stop: 10/06/21 23:50 Promethazine HCl 6.25 mg/ (Sodium Chloride) 50.25 mls @ 201 mls/hr IV Q6H PRN PRN Reason: Nausea And Vomiting Stop: 10/06/21 23:50 Insulin Aspart (Insulin Aspart 100 Units/Ml 3 Ml Pen) 0 units SC ACHS DAQUAN Stop: 10/06/21 23:50 Last Admin: 09/07/21 12:54 Dose: 3 units Documented by: Insulin Glargine (Insulin Glargine Solostar 100 Units/Ml 3 Ml Pen) 5 units SC DAILY DAQUAN Stop: 10/07/21 08:59 Last Admin: 09/07/21 08:30 Dose: 5 units Documented by: Miscellaneous (Carbohydrates For Hypoglycemia ) 15 - 30 gm PO UD PRN PRN Reason: Hypoglycemia Protocol Stop: 10/06/21 23:50 Tamsulosin HCl (Tamsulosin Hcl 0.4 Mg Cap) 0.4 mg PO DAILY DAQUAN Stop: 10/07/21 08:59 Last Admin: 09/07/21 08:32 Dose: 0.4 mg Documented by: Tolterodine Tartrate (Tolterodine Tartrate La 4 Mg Capcr) 4 mg PO DAILY DAQUAN Stop: 10/07/21 08:59 Last Admin: 09/07/21 08:32 Dose: Not Given Documented by: (1) Falls Encounter type: initial encounter Qualified Code(s): W19.XXXA - Unspecified fall, initial encounter
[2021-09-08] MEDS: TOLTERODINE TARTRATE LA 4 MG CAPCR PO SCH (07:58)
[2021-09-08] MEDS: TAMSULOSIN HCL 0.4 MG CAP PO SCH (07:58)
[2021-09-08] MEDS: ENOXAPARIN INJ 30 MG/0.3 ML SYR SQ SCH (07:58)
[2021-09-08] MEDS: ASPIRIN 81 MG ECTAB PO SCH (07:58)
[2021-09-08] MEDS: INSULIN ASPART 100 UNITS/ML 3 ML PEN SC SCH ×4 (08:46→21:09)
--- NOTE | 2021-09-08 09:15 | Hospitalist Progress Note ---
Date of Service September 08, 2021 Assessment & Plan (1) Falls: Plan: recurrent, etiology multifactorial, PT/OT with planned placement after discharge. Case management to assist with this. Per record review patient was scheduled to get an MRI brain for further workup. MRI brain last Sep 2020 revealed evidence of vascular disease. Functional status has worsened since that time. Also in this recent visit with Neurology, consideration was given to Parkinson's as an etiology of clinical picture with possible trial of Sinemet. (2) Dementia: Plan: High risk for delirium, cont reorienting when necessary (3) Diabetes mellitus, type II: Plan: A1C of 7.8. cont novolog for coverage. Glargine stopped , inpatient glucose at goal . (4) Hypertension: Plan: chronic, controlled, cont current therapy. (5) CVA (cerebral vascular accident): Plan: cont medical management including aspirin and statin therapy. (6) BPH (benign prostatic hyperplasia): Plan: Cont tamsulosin per home regimen. (7) DVT prophylaxis: Plan: Lovenox Full Code Dispo-to SNF, I spoke with his daughter by phone this morning and we discussed the care plan. All questions answered. [facility] Plunkett [facility] and Anticipated Discharge Date Admission Date: September 07, 2021 Subjective 81 yo M with a history of dementia with recent increased confusion per daughter. Increased falls at home recently. Cannot obtain ROS or history from patient 2/2 dementia Today nurses report he is more calm although he did already try to climb out of bed this morning He thinks he is in [facility] and he is clearly answering questions appropriately He is tolerating PO He is aware he has been falling He denies pain. Review of Systems Review of Systems: At least ten systems were reviewed and negative except as indicated in HPI above. Noted limited with h/o dementia. Physical Exam Physical Exam: CONSTITUTIONAL: WNWD, vitals as above, generally well- appearing EYES: normal conjunctivae, no scleral icterus ENT: external ear and nose normal NECK: trachea midline RESPIRATORY: clear to auscultation bilaterally, no crackles, rales or wheezes, normal respiratory effort CARDIOVASCULAR: regular rate and rhythm, S1 and 2 heard without murmurs, gallops or rubs, no JVD, no peripheral edema GASTROINTESTINAL: soft, nontender, ND, no guarding. MUSCULOSKELETAL: strength 5/5 throughout, head is normocephalic and atraumatic SKIN: warm and dry NEUROLOGIC: CN 2-12 grossly intact, somewhat sleepy, normal speech, no tremor PSYCHIATRIC: alert cooperative and oriented to person Results & Data Results & Data ([facility]) Vital Signs (Past 12 Hours) Vital Signs Temp Pulse Pulse Resp BP Pulse Ox 09/08/21 07:20 73 09/08/21 07:10 37.0 C 71 18 149/83 H 92 09/08/21 03:43 36.8 C 67 18 170/86 H 92 09/08/21 01:33 66 09/07/21 23:23 36.9 C 63 14 131/76 99 Medications Administered Current Inpatient Medications Acetaminophen (Acetaminophen 325 Mg Tab) 650 mg PO Q4H PRN PRN Reason: Pain or Fever Stop: 10/06/21 23:50 Aspirin (Aspirin 81 Mg Ectab) 81 mg PO DAILY DAQUAN Stop: 10/07/21 08:59 Last Admin: 09/08/21 07:58 Dose: 81 mg Documented by: Dextrose (Dextrose 50% 50 Ml Syringe) 25 - 50 ml IV UD PRN; Protocol PRN Reason: Hypoglycemia Protocol Stop: 10/06/21 23:50 Enoxaparin Sodium (Enoxaparin Inj 30 Mg/0.3 Ml Syr) 30 mg SQ QAM DAQUAN Stop: 10/07/21 08:59 Last Admin: 09/08/21 07:58 Dose: 30 mg Documented by: Glucagon (Glucagon For Inj 1 Mg Vial) 1 mg SQ UD PRN; Protocol PRN Reason: Hypoglycemia Protocol Stop: 10/06/21 23:50 Glucose (Glucose 10 Tabs/Tube) 4 - 8 tabs PO UD PRN; Protocol PRN Reason: Hypoglycemia Protocol Stop: 10/06/21 23:50 Glucose (Glucose 40% Gel 15 Gm Tube) 15 - 30 gm PO UD PRN; Protocol PRN Reason: Hypoglycemia Protocol Stop: 10/06/21 23:50 Promethazine HCl 6.25 mg/ (Sodium Chloride) 50.25 mls @ 201 mls/hr IV Q6H PRN PRN Reason: Nausea And Vomiting Stop: 10/06/21 23:50 Insulin Aspart (Insulin Aspart 100 Units/Ml 3 Ml Pen) 0 units SC ACHS DAQUAN Stop: 10/06/21 23:50 Last Admin: 09/08/21 08:46 Dose: 2 units Documented by: Miscellaneous (Carbohydrates For Hypoglycemia ) 15 - 30 gm PO UD PRN PRN Reason: Hypoglycemia Protocol Stop: 10/06/21 23:50 Tamsulosin HCl (Tamsulosin Hcl 0.4 Mg Cap) 0.4 mg PO DAILY [facility] Stop: 10/07/21 08:59 Last Admin: 09/08/21 07:58 Dose: 0.4 mg Documented by: Tolterodine Tartrate (Tolterodine Tartrate La 4 Mg Capcr) 4 mg PO DAILY [facility] Stop: 10/07/21 08:59 Last Admin: 09/08/21 07:58 Dose: 4 mg Documented by: (1) Falls Encounter type: initial encounter Qualified Code(s): W19.XXXA - Unspecified fall, initial encounter
--- NOTE | 2021-09-08 16:43 | Magnetic Resonance Report ---
MR brain wo con CLINICAL HISTORY: increased falls, dementia TECHNIQUE: Multiplanar and multisequence MR images of the brain were obtained without intravenous con trast. Comparison: Comparison is made to CT head 09/06/2021 FINDINGS: There is a tiny focus of restricted diffusion in the right cerebellum. There is mild associated T2 hy perintensity. Foci of T2 and FLAIR hyperintensity are noted in the paraventricular areas consistent w ith chronic small vessel ischemic disease. Ex vacuo ventriculomegaly and sulcal enlargement is noted compatible with diffuse encephalomalacia. Focal encephalomalacia is seen in the left occipital region . Hemorrhage No extra axial fluid collections are seen. There are no masses, mass effect, or midline shift. The corpus callosum, pituitary gland, and cerebellar tonsils appear grossly unremarkable. Flow voids of the major intracranial arterial vessels are identified. The imaged portions of the para nasal sinuses, mastoid air cells, and orbits are unremarkable. IMPRESSION: Punctate acute infarct in the right cerebellum. Chronic findings as above. ACT 112: Negative or not required by law. Electronically signed by: Jayesh Carroll M.D. 09/08/2021 4:42 PM
[2021-09-08] MEDS ORDERED: PHARMACIST DISCHARGE MED REC CONSULT PRN (18:58)
[2021-09-08] MEDS ORDERED: CLOPIDOGREL BISULFATE 75 MG TAB PO ONE (19:00)
[2021-09-08] MEDS: ATORVASTATIN 40 MG TAB PO SCH (21:08)
[2021-09-09 07:57] LABS: Chol HDL Ratio 4; Cholesterol 132 mg/dl (0-200); HDL Cholesterol 36 mg/dl; LDL Cholesterol Calculated 75 mg/dl; Triglycerides 105 mg/dl (0-150); VLDL Cholesterol 21 mg/dl
[2021-09-09] MEDS: ENOXAPARIN INJ 30 MG/0.3 ML SYR SQ SCH (07:58)
[2021-09-09] MEDS: ATORVASTATIN 40 MG TAB PO SCH (07:58)
[2021-09-09] MEDS: TOLTERODINE TARTRATE LA 4 MG CAPCR PO SCH (07:58)
[2021-09-09] MEDS: CLOPIDOGREL BISULFATE 75 MG TAB PO SCH (07:58)
[2021-09-09] MEDS: ASPIRIN 81 MG ECTAB PO SCH (07:59)
[2021-09-09] MEDS: TAMSULOSIN HCL 0.4 MG CAP PO SCH (08:00)
[2021-09-09] MEDS: INSULIN ASPART 100 UNITS/ML 3 ML PEN SC SCH ×4 (08:07→21:25)
--- NOTE | 2021-09-09 12:03 | Neurology Consultation ---
Date of Consultation September 09, 2021 Assessment & Plan (1) CVA (cerebral vascular accident): 1. very tiny stroke on MRI 2. needs CTA head and neck - r/o vascular disease 3. TTE- cardiac evaluation of stroke 4. start plavix 75 mg and aspirin 81 mg daily - is not compliant with meds likely no taking aspirin on a regular schedule 5. PT/OT for discharge needs- may need placement 6. fall precautions (2) Dementia: 1. will readdress as outpatient (3) Falls: 1. fall precautions and gait training Supervising Physician Co-Signing Physician Notes I have seen and discussed above patient with Dr Bethany Grimes, neurology. Patient seen and examined history reviewed MRI of the brain reviewed as well. I saw the patient recently in the office for gait dysfunction urinary incontinence dementia I hypothesized dementia AD versus vascular. We ordered an MRI of the brain but it had not been done. By report the patient was brought in for increased confusion and falling. His MRI was performed at our facility and showed a punctate infarct in the right cerebellar hemisphere. There is atrophy and commensurate ventriculomegaly with chronic vascular changes and a probable old left FLOOR HELPER infarction. His exam may show some minor facial masking or decreased blink frequency there may be a minor flattening of the right nasolabial fold. Speech is nondysarthric. There is no resting tremor or cogwheel rigidity. Strength is symmetric reflexes are symmetric ankle jerks are reduced toes are downgoing [id number] is not dystaxic This patient has baseline cognitive dysfunction as well as gait dysfunction urinary incontinence. There is no radiographic evidence of normal pressure hydrocephalus. I suspect his gait dysfunction and cognitive dysfunction are likely vascular. The small lacunar infarct mayhem put may have pushed him over the edge. No objection to dual antiplatelet therapy but it seems as if he probably was not taking aspirin reliably at home so would switch to aspirin monotherapy. Recommend CTA of the head and neck especially since there has been a prior left FLOOR HELPER infarction. 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 Elected not to start Sinemet at this point for variety reasons not the least of which is to cause worsening confusion. we will sign off patient should see me post discharge History of Present Illness Reason for Consultation: acute cerebellar stroke Requesting Physician: Joesph Hall MD Attending Physician: Joesph Hall MD History of Present Illness [place] is a 81 year old male PMH- HTN, HLD, COPD, DM II, BPH, dementia presented to ER with increased confusion. In the past year there has been a steady decline in cognitive status with increased confusion which has worsened over the past 6 months and more in the past week. He has been having increased trouble with ambulation in past couple of days has been needing to hold onto objects while walking. He had 2 falls within an hour with no LOC. Daughter is trying to care for him as well as his who has breast cancer and is wheelchair-bound. Daughter is worried about patient's safety with his recurrent falls. He saw [facility] neurology-Dr. Grimes on 08/19/2021 and diagnosed with dementia, MME . there was consideration for possible parkinsonian. He has been refusing to take medications most days. He has urinary incontinence at baseline. He is very confused where he is. He wants a ride downtown so he can get to [place]. denies CP, SOB, abdominal pain, N, V, +right shoulder pain Allergies Allergy/AdvReac Type Severity Reaction Status Date / Time iodine Allergy Severe (FROM Verified 09/06/21 23:43 CONTRAST MEDIA)sob, sneezing, wheezing Home Medications Medication Instructions Recorded Confirmed Type aspirin 81 mg tablet 81 mg PO DAILY 09/06/21 09/06/21 History glipizide 10 mg tablet, extended 10 mg PO DAILY 09/06/21 09/06/21 History release 24 hr linagliptin 5 mg tablet (Tradjenta) 5 mg PO DAILY 09/06/21 09/06/21 History lisinopril 10 mg tablet 10 mg PO DAILY 09/06/21 09/06/21 History metformin 500 mg tablet,extended 1,000 mg PO BID 09/06/21 09/06/21 History release 24 hr polyethylene glycol 3350 17 gram 17 g PO DAILY PRN 09/06/21 09/06/21 History oral powder packet (Miralax) tamsulosin 0.4 mg capsule 0.4 mg PO DAILY 09/06/21 09/06/21 History tolterodine 4 mg capsule,extended 4 mg PO DAILY 09/06/21 09/06/21 History release 24 hr ([place]) Patient History Medical History BPH (benign prostatic hyperplasia) CVA (cerebral vascular accident) Dementia Diabetes mellitus, type II HLD (hyperlipidemia) Hypertension Surgical History History of appendectomy History of cholecystectomy Family History Other Dementia Stroke Social History Smoking Status: Never smoker Do You Dip or Chew Tobacco: No (Former chewing tobacco user); Hx Alcohol Use: No Hx Substance Use: No Preferred Language: Kyrgyz Communication Ability: Impaired Direct Support Staff Required: No Beliefs That Will Affect Care: None Current Living Situation: Family Other Information That Helps Us Care for You: No Feels Safe at Home: Yes Assistive Devices: Glasses Review of Systems Review of Systems: All systems reviewed & are unremarkable except as noted in HPI & below Physical Exam Physical Exam: Physical Exam: Constitutional: appearance nourished Ears, Nose, Mouth and Throat: mucous membranes moist, no injection and skin normal, eyes normal Cardiovascular: normal S-1 and S-2 and regular rate and rhythm Respiratory: course breath sounds Musculoskeletal: no peripheral edema and good distal pulses Skin: no stigmata of neurocutaneous disease noted and normal and intact Eyes: extraocular muscles intact (EOMI) and pupils equal normal eye blink NEUROLOGIC EXAMINATION: Mental status: Alert and interactive Oriented does not know he is in a hospital, but knows he is in [place], not to date, or season Oriented to person Speech fluent with no evidence of aphasia Cranial Nerves smile eye brow raise symmetric Reflexes: Deep tendon reflexes were symmetrical and graded 2/5. Sensory: intact to light cool touch Coordination: finger to nose slight reaching tremor, slow rapid hand movements, heel to soto slow Gait/Stance: Posture normal. 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 There is mild associated T2 hyperintensity. Foci of T2 and FLAIR hyperintensity are noted in the paraventricular areas consistent with chronic small vessel ischemic disease. Ex vacuo ventriculomegaly and sulcal enlargement is noted compatible with diffuse encephalomalacia. Focal encephalomalacia is seen in the left occipital region. Hemorrhage No extra axial fluid collections are seen. There are no masses, mass effect, or midline shift. The corpus callosum, pituitary gland, and cerebellar tonsils appear grossly unremarkable. Flow voids of the major intracranial arterial vessels are identified. The imaged portions of the paranasal sinuses, mastoid air cells, and orbits are unremarkable. CT head-No acute intracranial hemorrhage, evidence of acute territorial infarction, or other acute intracranial disease process. Old infarct in the left occipital lobe. CXR-No acute chest disease. (1) Falls Encounter type: initial encounter Qualified Code(s): W19.XXXA - Unspecified fall, initial encounter
--- NOTE | 2021-09-09 13:00 | Hospitalist Progress Note ---
Date of Service September 09, 2021 Assessment & Plan (1) Falls: Plan: Have recurrent episodes. Continue to work with PT/OT. Care management is working on placement. MRI brain last Sep 2020 revealed evidence of vascular disease. MRI brain 09/08/2021: Punctate acute infarct in the right cerebellum. Neurology has been consulted. Continue with Plavix/aspirin/Lipitor. (2) Dementia: Plan: High risk for delirium, cont reorienting when necessary (3) Diabetes mellitus, type II: Plan: A1C of 7.8. cont novolog for coverage. Glargine stopped , inpatient glucose at goal . (4) Hypertension: Plan: chronic, controlled, cont current therapy. (5) CVA (cerebral vascular accident): Plan: cont medical management including aspirin and statin therapy. (6) BPH (benign prostatic hyperplasia): Plan: Cont tamsulosin per home regimen. (7) DVT prophylaxis: Plan: Lovenox Full Code Dispo-to SNF Admission and Anticipated Discharge Date Admission Date: September 07, 2021 Subjective Patient is resting comfortably. He is awake and alert. Not oriented. Could not obtain full review of system given his current mental status. Review of Systems Review of Systems: Unobtainable due to cognitive status Physical Exam Physical Exam: General: awake and alert, kinney snot appear to be in any distress HENT: NCAT, MMM, EOMI Eyes: PERRLA Neck: Supple, normal range of motion CVS: normal rate and rhythm Resp: b/l good breath sounds Abdomen: Soft, ND/NT, +BS Extremities: No c/c/e Neuro: face symmetric, no gross focal deficits appreciated, speech is clear Skin: warm and dry, no rashes/lesions/errythema MSK: normal ROM, no joint swelling/erythema Results & Data Results & Data ([facility]) Vital Signs (Past 12 Hours) Vital Signs Temp Pulse Pulse Resp BP Pulse Ox 09/09/21 11:38 36.3 C L 84 18 114/74 94 09/09/21 07:27 66 09/09/21 06:55 36.2 C L 74 18 159/80 H 92 09/09/21 04:57 36.8 C 68 18 153/86 H 94 (1) Falls Encounter type: initial encounter Qualified Code(s): W19.XXXA - Unspecified fall, initial encounter
[2021-09-10] MEDS: CLOPIDOGREL BISULFATE 75 MG TAB PO SCH (09:18)
[2021-09-10] MEDS: TOLTERODINE TARTRATE LA 4 MG CAPCR PO SCH (09:19)
[2021-09-10] MEDS: TAMSULOSIN HCL 0.4 MG CAP PO SCH (09:19)
[2021-09-10] MEDS: ENOXAPARIN INJ 30 MG/0.3 ML SYR SQ SCH (09:19)
[2021-09-10] MEDS: ASPIRIN 81 MG ECTAB PO SCH (09:19)
[2021-09-10] MEDS: INSULIN ASPART 100 UNITS/ML 3 ML PEN SC SCH ×4 (09:21→21:41)
--- NOTE | 2021-09-10 12:15 | Hospitalist Progress Note ---
Date of Service September 10, 2021 Assessment & Plan (1) Falls: Plan: Have recurrent episodes. Continue to work with PT/OT. Recommending [facility] facility. Medically okay for discharge. Care management is working on placement. MRI brain last Sep 2020 revealed evidence of vascular disease. MRI brain 09/08/2021: Punctate acute infarct in the right cerebellum. Appreciate neurology input. Continue with Plavix/aspirin/Lipitor. Transthoracic echo is pending. We will obtain routine CBC/BMP today. (2) Dementia: Plan: High risk for delirium, cont reorienting when necessary (3) Diabetes mellitus, type II: Plan: A1C of 7.8. cont novolog for coverage. Glargine stopped , inpatient glucose at goal . (4) Hypertension: Plan: chronic, controlled, cont current therapy. (5) CVA (cerebral vascular accident): Plan: cont medical management including aspirin and statin therapy. (6) BPH (benign prostatic hyperplasia): Plan: Cont tamsulosin per home regimen. (7) DVT prophylaxis: Plan: Lovenox Full Code Dispo-to SNF Admission and Anticipated Discharge Date Admission Date: September 07, 2021 Subjective Patient is doing okay this morning. He is awake and alert. Oriented to place. Does not appear to be in any distress system is negative. Review of Systems Review of Systems: All systems reviewed & are unremarkable except as noted in HPI & below Physical Exam Physical Exam: General: awake and alert, kinney snot appear to be in any distress HENT: NCAT, MMM, EOMI Eyes: PERRLA Neck: Supple, normal range of motion CVS: normal rate and rhythm Resp: b/l good breath sounds Abdomen: Soft, ND/NT, +BS Extremities: No c/c/e Neuro: face symmetric, no gross focal deficits appreciated, speech is clear Skin: warm and dry, no rashes/lesions/errythema MSK: normal ROM, no joint swelling/erythema Results & Data Results & Data ([facility]) Vital Signs (Past 12 Hours) Vital Signs Temp Pulse Pulse Resp BP BP Pulse Ox 09/10/21 11:46 36.5 C 75 22 111/70 95 09/10/21 07:50 36.3 C L 70 22 126/76 92 09/10/21 07:31 72 09/10/21 03:03 36.4 C L 81 20 132/77 93 09/10/21 01:38 82 (1) Falls Encounter type: initial encounter Qualified Code(s): W19.XXXA - Unspecified fall, initial encounter
[2021-09-10 12:31] LABS: Basophils # (auto) 0.01 K/uL (0-0.2); Basophils % (auto) 0.2 %; Hematocrit (blood only) 37.9 % (42-52); Immature Granulocytes # (auto) 0.01 K/uL (0.00-0.02); Immature Granulocytes % (auto) 0.2 %; Lymphocytes # (auto) 2.14 K/uL (1.2-3.4); Lymphocytes % (auto) 32.6 %; Mean Corpuscular Hemoglobin 32.8 pg (25-34); Mean Corpuscular Hgb Conc 34.3 g/dL (32-36); Mean Corpuscular Volume 95.7 fL (80-100); Mean Platelet Volume 9.2 fL (7.4-10.4); Monocytes % (auto) 15.2 %; Neutrophils # (auto) 3.21 K/uL (1.4-6.5); Neutrophils % (auto) 48.8 %; Platelet Count 344 K/uL (130-400); RDW Coefficient of Variation 12.7 % (11.5-14.5); RDW Standard Deviation 44.3 fL (36.4-46.3); Red Blood Count 3.96 M/uL (4.7-6.1); White Blood Count 6.57 K/uL (4.8-10.8)
[2021-09-10 13:01] LABS: Albumin Level 3.2 gm/dl (3.4-5.0); BUN Creatinine Ratio 24.5 (10-20); Creatinine Clr Calc Pharmacy 79.5 ml/min; Est GFR (African American) 96.4 ml/min; Est GFR (Non-African American) 83.2 ml/min
[2021-09-10 13:03] LABS: Albumin Globulin Ratio 0.7 (0.9-2); Bilirubin,Total 0.4 mg/dl (0.2-1); Globulin 4.3 gm/dl (2.5-4.0); Total Protein 7.5 gm/dl (6.4-8.2)
[2021-09-10] MEDS: ATORVASTATIN 40 MG TAB PO SCH (21:38)
[2021-09-11 07:46] LABS: Hematocrit (blood only) 37.6 % (42-52); Hemoglobin 13.1 g/dL (14.0-18.0); Mean Corpuscular Hemoglobin 33.1 pg (25-34); Mean Corpuscular Hgb Conc 34.8 g/dL (32-36); Mean Corpuscular Volume 94.9 fL (80-100); Mean Platelet Volume 9.2 fL (7.4-10.4); Platelet Count 337 K/uL (130-400); RDW Coefficient of Variation 12.8 % (11.5-14.5); RDW Standard Deviation 44.3 fL (36.4-46.3); Red Blood Count 3.96 M/uL (4.7-6.1); White Blood Count 6.66 K/uL (4.8-10.8)
[2021-09-11 08:21] LABS: BUN Creatinine Ratio 25.5 (10-20); Est GFR (African American) 99.6 ml/min; Est GFR (Non-African American) 85.9 ml/min; Magnesium 2.2 mg/dl (1.8-2.4); Phosphorus 2.8 mg/dl (2.5-4.9); Potassium 4.2 mmol/L (3.5-5.1)
[2021-09-11] MEDS: CLOPIDOGREL BISULFATE 75 MG TAB PO SCH (10:13)
[2021-09-11] MEDS: TAMSULOSIN HCL 0.4 MG CAP PO SCH (10:13)
[2021-09-11] MEDS: ASPIRIN 81 MG ECTAB PO SCH (10:13)
[2021-09-11] MEDS: INSULIN ASPART 100 UNITS/ML 3 ML PEN SC SCH ×4 (10:14→21:30)
[2021-09-11] MEDS: ENOXAPARIN INJ 30 MG/0.3 ML SYR SQ SCH (10:14)
[2021-09-11] MEDS: TOLTERODINE TARTRATE LA 4 MG CAPCR PO SCH (10:14)
--- NOTE | 2021-09-11 12:51 | Hospitalist Progress Note ---
Date of Service September 11, 2021 Assessment & Plan (1) Falls: Plan: Have recurrent episodes. Continue to work with PT/OT. Recommending custodial facility. Medically okay for discharge. Care management is working on placement. MRI brain last Sep 2020 revealed evidence of vascular disease. MRI brain 09/08/2021: Punctate acute infarct in the right cerebellum. Appreciate neurology input. Continue with Plavix/aspirin/Lipitor. Neurology also recommends CTA head and neck, however patient has a dye allergy, therefore they recommend MRA head and neck, which was ordered Transthoracic echo - no ASD, LV grossly normal size. EF 55 to 60%. RV systolic function normal. LA size is normal. RA size is normal. PFO not assessed. Hemodynamically significant valvular aortic stenosis cannot be excluded. (2) Dementia: Plan: High risk for delirium, cont reorienting when necessary (3) Diabetes mellitus, type II: Plan: A1C of 7.8. cont novolog for coverage. Glargine stopped , inpatient glucose at goal . (4) Hypertension: Plan: chronic, controlled, cont current therapy. (5) CVA (cerebral vascular accident): Plan: cont medical management including aspirin and statin therapy. (6) BPH (benign prostatic hyperplasia): Plan: Cont tamsulosin per home regimen. (7) DVT prophylaxis: Plan: Lovenox Full Code Dispo-to SNF Admission and Anticipated Discharge Date Admission Date: September 07, 2021 Subjective Patient seen in follow-up, after fall, history of dementia, acute cerebellar stroke Currently patient sitting up in bed, in no acute distress Thinks he is in [facility] Denies any fevers, chills, headache, chest pain shortness of breath, abdominal pain, he is eating lunch Per neurology, it was recommended to obtain CTA head and neck, however patient has dye allergy, and so they recommended MRA, which was ordered Review of Systems Review of Systems: All systems reviewed & are unremarkable except as noted in Subjective Physical Exam Physical Exam: General: awake and alert, elderly M in NAD HENT: NCAT, MMM, EOMI Eyes: EOMI, PERRL Neck: Supple, normal range of motion CVS: normal rate and rhythm Resp: b/l good breath sounds Abdomen: Soft, ND/NT, +BS Extremities: No c/c/e Neuro: Awake and alert, able to answer some questions appropriately, face symmetric, speech is clear, moves extremities Skin: warm and dry, no rashes/lesions/erythema MSK: normal ROM, no joint swelling/erythema Results & Data Results & Data ([facility]) Vital Signs (Past 12 Hours) Vital Signs Temp Pulse Resp BP BP Pulse Ox 09/11/21 11:07 110/71 09/11/21 10:45 36.9 C 113 H 16 115/69 96 09/11/21 10:44 36.8 C 89 16 90/61 L 91 09/11/21 02:52 36.8 C 69 16 116/75 90 Laboratory Results 09/11/21 09/11/21 09/11/21 Range/Units 11:29 07:50 07:27 WBC (4.8-10.8) K/uL RBC (4.7-6.1) M/uL Hgb (14.0-18.0) g/dL Hct (42-52) % MCV (80-100) fL MCH (25-34) pg MCHC (32-36) g/dL RDW Std Deviation (36.4-46.3) fL RDW Coeff of Divina (11.5-14.5) % Plt Count (130-400) K/uL MPV (7.4-10.4) fL Sodium 136 (136-145) mmol/L Potassium 4.2 (3.5-5.1) mmol/L Chloride 107 (98-107) mmol/L Carbon Dioxide 25 (21-32) mmol/L Anion Gap 4.0 (3-11) BUN 19 H (7-18) mg/dl Creatinine 0.74 (0.6-1.4) mg/dl Est Cr Clr Drug Dosing 84.0 ml/min Est GFR ( Amer) 99.6 ml/min Est GFR (Non-Af Amer) 85.9 ml/min BUN/Creatinine Ratio 25.5 H (10-20) Glucose 130 H (70-99) mg/dl POC Glucose 269 H 110 H (70-99) mg/dl Calcium 10.0 (8.5-10.1) mg/dl Phosphorus 2.8 (2.5-4.9) mg/dl Magnesium 2.2 (1.8-2.4) mg/dl Total Bilirubin (0.2-1) mg/dl AST (15-37) U/L ALT (12-78) U/L Alkaline Phosphatase (45-117) U/L Total Protein (6.4-8.2) gm/dl Albumin (3.4-5.0) gm/dl Globulin (2.5-4.0) gm/dl Albumin/Globulin Ratio (0.9-2) 09/11/21 09/10/21 09/10/21 Range/Units 07:27 20:32 16:47 WBC 6.66 (4.8-10.8) K/uL RBC 3.96 L (4.7-6.1) M/uL Hgb 13.1 L (14.0-18.0) g/dL Hct 37.6 L (42-52) % MCV 94.9 (80-100) fL MCH 33.1 (25-34) pg MCHC 34.8 (32-36) g/dL RDW Std Deviation 44.3 (36.4-46.3) fL RDW Coeff of Divina 12.8 (11.5-14.5) % Plt Count 337 (130-400) K/uL MPV 9.2 (7.4-10.4) fL Sodium (136-145) mmol/L Potassium (3.5-5.1) mmol/L Chloride (98-107) mmol/L Carbon Dioxide (21-32) mmol/L Anion Gap (3-11) BUN (7-18) mg/dl Creatinine (0.6-1.4) mg/dl Est Cr Clr Drug Dosing ml/min Est GFR ( Amer) ml/min Est GFR (Non-Af Amer) ml/min BUN/Creatinine Ratio (10-20) Glucose (70-99) mg/dl POC Glucose 151 H 125 H (70-99) mg/dl Calcium (8.5-10.1) mg/dl Phosphorus (2.5-4.9) mg/dl Magnesium (1.8-2.4) mg/dl Total Bilirubin (0.2-1) mg/dl AST (15-37) U/L ALT (12-78) U/L Alkaline Phosphatase (45-117) U/L Total Protein (6.4-8.2) gm/dl Albumin (3.4-5.0) gm/dl Globulin (2.5-4.0) gm/dl Albumin/Globulin Ratio (0.9-2) 09/10/21 Range/Units 12:19 WBC (4.8-10.8) K/uL RBC (4.7-6.1) M/uL Hgb (14.0-18.0) g/dL Hct (42-52) % MCV (80-100) fL MCH (25-34) pg MCHC (32-36) g/dL RDW Std Deviation (36.4-46.3) fL RDW Coeff of Divina (11.5-14.5) % Plt Count (130-400) K/uL MPV (7.4-10.4) fL Sodium 135 L (136-145) mmol/L Potassium 4.0 (3.5-5.1) mmol/L Chloride 105 (98-107) mmol/L Carbon Dioxide 27 (21-32) mmol/L Anion Gap 3.0 (3-11) BUN 20 H (7-18) mg/dl Creatinine 0.80 (0.6-1.4) mg/dl Est Cr Clr Drug Dosing 79.5 ml/min Est GFR ( Amer) 96.4 ml/min Est GFR (Non-Af Amer) 83.2 ml/min BUN/Creatinine Ratio 24.5 H (10-20) Glucose 133 H (70-99) mg/dl POC Glucose (70-99) mg/dl Calcium 10.0 (8.5-10.1) mg/dl Phosphorus (2.5-4.9) mg/dl Magnesium (1.8-2.4) mg/dl Total Bilirubin 0.4 (0.2-1) mg/dl AST 15 (15-37) U/L ALT 20 (12-78) U/L Alkaline Phosphatase 69 (45-117) U/L Total Protein 7.5 (6.4-8.2) gm/dl Albumin 3.2 L (3.4-5.0) gm/dl Globulin 4.3 H (2.5-4.0) gm/dl Albumin/Globulin Ratio 0.7 L (0.9-2) Medications Administered Current Inpatient Medications Acetaminophen (Acetaminophen 325 Mg Tab) 650 mg PO Q4H PRN PRN Reason: Pain or Fever Stop: 10/06/21 23:50 Aspirin (Aspirin 81 Mg Ectab) 81 mg PO DAILY [facility] Stop: 10/07/21 08:59 Last Admin: 09/11/21 10:13 Dose: 81 mg Documented by: Atorvastatin Calcium (Atorvastatin 40 Mg Tab) 80 mg PO HS [facility] Stop: 10/08/21 20:59 Last Admin: 09/10/21 21:38 Dose: 80 mg Documented by: Clopidogrel Bisulfate (Clopidogrel Bisulfate 75 Mg Tab) 75 mg PO QAM [facility] Stop: 10/09/21 08:59 Last Admin: 09/11/21 10:13 Dose: 75 mg Documented by: Dextrose (Dextrose 50% 50 Ml Syringe) 25 - 50 ml IV UD PRN; Protocol PRN Reason: Hypoglycemia Protocol Stop: 10/06/21 23:50 Enoxaparin Sodium (Enoxaparin Inj 30 Mg/0.3 Ml Syr) 30 mg SQ QAM [facility] Stop: 10/07/21 08:59 Last Admin: 09/11/21 10:14 Dose: 30 mg Documented by: Glucagon (Glucagon For Inj 1 Mg Vial) 1 mg SQ UD PRN; Protocol PRN Reason: Hypoglycemia Protocol Stop: 10/06/21 23:50 Glucose (Glucose 10 Tabs/Tube) 4 - 8 tabs PO UD PRN; Protocol PRN Reason: Hypoglycemia Protocol Stop: 10/06/21 23:50 Glucose (Glucose 40% Gel 15 Gm Tube) 15 - 30 gm PO UD PRN; Protocol PRN Reason: Hypoglycemia Protocol Stop: 10/06/21 23:50 Promethazine HCl 6.25 mg/ (Sodium Chloride) 50.25 mls @ 201 mls/hr IV Q6H PRN PRN Reason: Nausea And Vomiting Stop: 10/06/21 23:50 Insulin Aspart (Insulin Aspart 100 Units/Ml 3 Ml Pen) 0 units SC ACHS [facility] Stop: 10/06/21 23:50 Last Admin: 09/11/21 12:14 Dose: 9 units Documented by: Miscellaneous (Carbohydrates For Hypoglycemia ) 15 - 30 gm PO UD PRN PRN Reason: Hypoglycemia Protocol Stop: 10/06/21 23:50 Tamsulosin HCl (Tamsulosin Hcl 0.4 Mg Cap) 0.4 mg PO DAILY [facility] Stop: 10/07/21 08:59 Last Admin: 09/11/21 10:13 Dose: 0.4 mg Documented by: Tolterodine Tartrate (Tolterodine Tartrate La 4 Mg Capcr) 4 mg PO DAILY [facility] Stop: 10/07/21 08:59 Last Admin: 09/11/21 10:14 Dose: 4 mg Documented by: (1) Falls Encounter type: initial encounter Qualified Code(s): W19.XXXA - Unspecified fall, initial encounter
[2021-09-11] MEDS: ATORVASTATIN 40 MG TAB PO SCH (21:29)
[2021-09-11] MEDS ORDERED: OLANZapine 10 MG/2.1 ML SDV IM ONE (22:58)
--- NOTE | 2021-09-12 07:35 | Magnetic Resonance Report ---
MR angio head wo con HISTORY: 81 years-old Male cva . Acute strokelike symptoms COMPARISON: Brain MRI 09/08/2021, MRA neck 09/11/2021 TECHNIQUE: MRA of the head was obtained without the use of IV contrast utilizing 3-D [id number]-thfbym s equencing with MIP reformats. All measurements were obtained according to NASCET criteria. FINDINGS: Motion degraded exam. Age-related involutional changes with ex vacuo ventriculomegaly. The visualized internal carotid arteries, middle and anterior cerebral arteries appear patent. Hypoplastic right A1 segment. The visualized basilar and posterior cerebral arteries are patent. There is a nonspecific 1 .5 cm area of increased signal within the left lentiform nucleus which is unchanged from comparison b rain MRI. Chronic infarct of the left occipital lobe. IMPRESSION: Unremarkable MRA of the head with limited study secondary to motion degradation. ACT 112: Negative or not required by law. The above report was generated using voice recognition software. It may contain grammatical, syntax o r spelling errors. Electronically signed by: Saturnino Contreras M.D. 09/12/2021 7:33 AM
--- NOTE | 2021-09-12 07:48 | Magnetic Resonance Report ---
MR angio neck wo con HISTORY: 81 years-old Male cva acute strokelike symptoms COMPARISON: Brain MRI 09/08/2021, MRA of the head 09/11/2021 TECHNIQUE: MRA of the neck was obtained without the use of IV contrast utilizing 3-D hndn-tz-ugyray s equencing with MIP reformats. All measurements were obtained according to NASCET criteria. FINDINGS: Limited exam secondary to patient motion. Technologist reports that the patient is demented and comba tive. Suboptimally evaluated vasculature. The visualized components of the common and internal caroti d arteries and vertebral arteries appear unremarkable and patent. Please note however that several po rtions of the aforementioned arteries are suboptimally evaluated. IMPRESSION: Limited study secondary to motion degradation. No high-grade stenosis, dissection, aneury sm or arterial occlusion identified. ACT 112: Negative or not required by law. The above report was generated using voice recognition software. It may contain grammatical, syntax o r spelling errors. Electronically signed by: Saturnino Contreras M.D. 09/12/2021 7:47 AM
[2021-09-12 08:37] LABS: BUN Creatinine Ratio 24.1 (10-20); Creatinine Clr Calc Pharmacy 77.7 ml/min; Est GFR (African American) 96.4 ml/min; Est GFR (Non-African American) 83.2 ml/min
[2021-09-12] MEDS: TAMSULOSIN HCL 0.4 MG CAP PO SCH (09:28)
[2021-09-12] MEDS: ASPIRIN 81 MG ECTAB PO SCH (09:28)
[2021-09-12] MEDS: INSULIN ASPART 100 UNITS/ML 3 ML PEN SC SCH ×4 (09:29→21:52)
[2021-09-12] MEDS: CLOPIDOGREL BISULFATE 75 MG TAB PO SCH (09:29)
[2021-09-12] MEDS: TOLTERODINE TARTRATE LA 4 MG CAPCR PO SCH (09:29)
[2021-09-12] MEDS: ENOXAPARIN INJ 30 MG/0.3 ML SYR SQ SCH (09:30)
--- NOTE | 2021-09-12 11:51 | Hospitalist Progress Note ---
Date of Service September 12, 2021 Assessment & Plan (1) Falls: Plan: Have recurrent episodes. Continue to work with PT/OT. Recommending care home facility. Medically ready for discharge. Care management is working on placement. MRI brain last Sep 2020 revealed evidence of vascular disease. MRI brain 09/08/2021: Punctate acute infarct in the right cerebellum. MRA head and neck 09/11/21 - Unremarkable MRA of the head with limited study secondary to motion degradation. neck -Limited study secondary to motion degradation. No high-grade stenosis, dissection, aneurysm or arterial occlusion identified. Transthoracic echo - no ASD, LV grossly normal size. EF 55 to 60%. RV systolic function normal. LA size is normal. RA size is normal. PFO not assessed. Hemodynamically significant valvular aortic stenosis cannot be excluded. Appreciate neurology input. Continue with Plavix/aspirin/Lipitor. (2) Dementia: Plan: High risk for delirium, cont reorienting when necessary (3) Diabetes mellitus, type II: Plan: A1C of 7.8. cont novolog for coverage. Glargine stopped , inpatient glucose at goal . (4) Hypertension: Plan: chronic, controlled, cont current therapy. (5) CVA (cerebral vascular accident): Plan: cont medical management including aspirin and statin therapy. (6) BPH (benign prostatic hyperplasia): Plan: Cont tamsulosin per home regimen. (7) DVT prophylaxis: Plan: Lovenox Full Code Dispo-to SNF Admission and Anticipated Discharge Date Admission Date: September 07, 2021 Subjective Patient seen in follow-up, after fall, history of dementia, acute cerebellar stroke Currently patient sitting up in chair, in no acute distress He feels comfortable, has no complaints, he is not sure where he is Denies any fevers, chills, headache, chest pain shortness of breath, abdominal pain Review of Systems Review of Systems: All systems reviewed & are unremarkable except as noted in Subjective Physical Exam Physical Exam: General: awake and alert, elderly M in NAD HENT: NCAT, MMM, EOMI Eyes: EOMI, PERRL Neck: Supple, normal range of motion CVS: normal rate and rhythm Resp: b/l good breath sounds Abdomen: Soft, ND/NT, +BS Extremities: No c/c/e Neuro: Awake and alert, able to answer some questions appropriately (he cannot tell me where he is), face symmetric, speech is clear, moves extremities Skin: warm and dry, no rashes/lesions/erythema MSK: normal ROM, no joint swelling/erythema Results & Data Results & Data ([facility]) Vital Signs (Past 12 Hours) Vital Signs Temp Pulse Resp BP Pulse Ox 09/12/21 10:55 36.3 C L 99 H 16 102/84 96 09/12/21 07:44 36.5 C 74 16 166/84 H 94 09/12/21 03:36 36.5 C 78 18 156/82 H 94 Laboratory Results 09/12/21 09/12/21 09/12/21 Range/Units 11:32 08:49 07:29 Sodium (136-145) mmol/L Potassium 4.1 (3.5-5.1) mmol/L Chloride (98-107) mmol/L Carbon Dioxide (21-32) mmol/L Anion Gap (3-11) BUN (7-18) mg/dl Creatinine (0.6-1.4) mg/dl Est Cr Clr Drug Dosing ml/min Est GFR ( Amer) ml/min Est GFR (Non-Af Amer) ml/min BUN/Creatinine Ratio (10-20) Glucose (70-99) mg/dl POC Glucose 198 H 136 H (70-99) mg/dl Calcium (8.5-10.1) mg/dl 09/12/21 09/11/21 09/11/21 Range/Units 06:35 20:10 16:34 Sodium 139 (136-145) mmol/L Potassium (3.5-5.1) mmol/L Chloride 107 (98-107) mmol/L Carbon Dioxide 25 (21-32) mmol/L Anion Gap 7.0 (3-11) BUN 19 H (7-18) mg/dl Creatinine 0.80 (0.6-1.4) mg/dl Est Cr Clr Drug Dosing 77.7 ml/min Est GFR ( Amer) 96.4 ml/min Est GFR (Non-Af Amer) 83.2 ml/min BUN/Creatinine Ratio 24.1 H (10-20) Glucose 132 H (70-99) mg/dl POC Glucose 151 H 104 H (70-99) mg/dl Calcium 10.0 (8.5-10.1) mg/dl Medications Administered Current Inpatient Medications Acetaminophen (Acetaminophen 325 Mg Tab) 650 mg PO Q4H PRN PRN Reason: Pain or Fever Stop: 10/06/21 23:50 Aspirin (Aspirin 81 Mg Ectab) 81 mg PO DAILY [facility] Stop: 10/07/21 08:59 Last Admin: 09/12/21 09:28 Dose: 81 mg Documented by: Atorvastatin Calcium (Atorvastatin 40 Mg Tab) 80 mg PO HS [facility] Stop: 10/08/21 20:59 Last Admin: 09/11/21 21:29 Dose: Not Given Documented by: Clopidogrel Bisulfate (Clopidogrel Bisulfate 75 Mg Tab) 75 mg PO QAM [facility] Stop: 10/09/21 08:59 Last Admin: 09/12/21 09:29 Dose: 75 mg Documented by: Dextrose (Dextrose 50% 50 Ml Syringe) 25 - 50 ml IV UD PRN; Protocol PRN Reason: Hypoglycemia Protocol Stop: 10/06/21 23:50 Enoxaparin Sodium (Enoxaparin Inj 30 Mg/0.3 Ml Syr) 30 mg SQ QAM [facility] Stop: 10/07/21 08:59 Last Admin: 09/12/21 09:30 Dose: 30 mg Documented by: Glucagon (Glucagon For Inj 1 Mg Vial) 1 mg SQ UD PRN; Protocol PRN Reason: Hypoglycemia Protocol Stop: 10/06/21 23:50 Glucose (Glucose 10 Tabs/Tube) 4 - 8 tabs PO UD PRN; Protocol PRN Reason: Hypoglycemia Protocol Stop: 10/06/21 23:50 Glucose (Glucose 40% Gel 15 Gm Tube) 15 - 30 gm PO UD PRN; Protocol PRN Reason: Hypoglycemia Protocol Stop: 10/06/21 23:50 Promethazine HCl 6.25 mg/ (Sodium Chloride) 50.25 mls @ 201 mls/hr IV Q6H PRN PRN Reason: Nausea And Vomiting Stop: 10/06/21 23:50 Insulin Aspart (Insulin Aspart 100 Units/Ml 3 Ml Pen) 0 units SC ACHS [facility] Stop: 10/06/21 23:50 Last Admin: 09/12/21 09:29 Dose: 3 units Documented by: Miscellaneous (Carbohydrates For Hypoglycemia ) 15 - 30 gm PO UD PRN PRN Reason: Hypoglycemia Protocol Stop: 10/06/21 23:50 Olanzapine (Olanzapine 10 Mg/2.1 Ml Sdv) 2.5 mg IM Q4H PRN PRN Reason: Anxiety/Agitation Stop: 10/11/21 22:51 Tamsulosin HCl (Tamsulosin Hcl 0.4 Mg Cap) 0.4 mg PO DAILY [facility] Stop: 10/07/21 08:59 Last Admin: 09/12/21 09:28 Dose: 0.4 mg Documented by: Tolterodine Tartrate (Tolterodine Tartrate La 4 Mg Capcr) 4 mg PO DAILY [facility] Stop: 10/07/21 08:59 Last Admin: 09/12/21 09:29 Dose: 4 mg Documented by: (1) Falls Encounter type: initial encounter Qualified Code(s): W19.XXXA - Unspecified fall, initial encounter
[2021-09-12] MEDS: ATORVASTATIN 40 MG TAB PO SCH (21:52)
[2021-09-13] MEDS: TAMSULOSIN HCL 0.4 MG CAP PO SCH (07:59)
[2021-09-13] MEDS: CLOPIDOGREL BISULFATE 75 MG TAB PO SCH (07:59)
[2021-09-13] MEDS: TOLTERODINE TARTRATE LA 4 MG CAPCR PO SCH (07:59)
[2021-09-13] MEDS: ASPIRIN 81 MG ECTAB PO SCH (07:59)
[2021-09-13] MEDS: ENOXAPARIN INJ 30 MG/0.3 ML SYR SQ SCH (08:02)
[2021-09-13] MEDS: INSULIN ASPART 100 UNITS/ML 3 ML PEN SC SCH ×4 (09:04→20:58)
[2021-09-13] MEDS ORDERED: POLYETHYLENE (MIRALAX) 17 GM PACK PO PRN (10:41)
--- NOTE | 2021-09-13 18:23 | Hospitalist Progress Note ---
Date of Service September 13, 2021 Assessment & Plan (1) Falls: Plan: Have recurrent episodes. Continue to work with PT/OT. Recommending retirement facility. Medically ready for discharge. Care management is working on placement. MRI brain last Sep 2020 revealed evidence of vascular disease. MRI brain 09/08/2021: Punctate acute infarct in the right cerebellum. MRA head and neck 09/11/21 - Unremarkable MRA of the head with limited study secondary to motion degradation. neck -Limited study secondary to motion degradation. No high-grade stenosis, dissection, aneurysm or arterial occlusion identified. Transthoracic echo - no ASD, LV grossly normal size. EF 55 to 60%. RV systolic function normal. LA size is normal. RA size is normal. PFO not assessed. Hemodynamically significant valvular aortic stenosis cannot be excluded. Appreciate neurology input. Continue with Plavix/aspirin/Lipitor. (2) Dementia: Plan: High risk for delirium, cont reorienting when necessary (3) Diabetes mellitus, type II: Plan: A1C of 7.8. cont novolog for coverage. Glargine stopped , inpatient glucose at goal . (4) Hypertension: Plan: chronic, controlled, cont current therapy. (5) CVA (cerebral vascular accident): Plan: cont medical management including aspirin and statin therapy. (6) BPH (benign prostatic hyperplasia): Plan: Cont tamsulosin per home regimen. (7) DVT prophylaxis: Plan: Lovenox Full Code Dispo-to SNF/plan for discharge to [place] on Thursday Admission and Anticipated Discharge Date Admission Date: September 07, 2021 Subjective Patient seen in follow-up, after fall, history of dementia, acute cerebellar stroke Currently patient is laying in bed, in no acute distress, also seen slowly walking with PT and a walker earlier today He feels comfortable, resting, has no complaints Denies any fevers, chills, headache, chest pain shortness of breath, abdominal pain Review of Systems Review of Systems: All systems reviewed & are unremarkable except as noted in Subjective Physical Exam Physical Exam: General: elderly M in NAD HENT: NCAT, MMM, EOMI Eyes: EOMI, PERRL Neck: Supple, normal range of motion CVS: normal rate and rhythm Resp: b/l good breath sounds Abdomen: Soft, ND/NT, +BS Extremities: No c/c/e Neuro: able to answer some questions appropriately, face symmetric, speech is clear, moves extremities Skin: warm and dry, no rashes/lesions/erythema MSK: normal ROM, no joint swelling/erythema Results & Data Results & Data ([facility]) Vital Signs (Past 12 Hours) Vital Signs Temp Pulse Pulse Resp BP Pulse Ox 09/13/21 15:12 36.3 C L 78 16 111/69 94 09/13/21 08:41 36.9 C 109 H 17 124/73 93 09/13/21 08:00 71 Medications Administered Current Inpatient Medications Acetaminophen (Acetaminophen 325 Mg Tab) 650 mg PO Q4H PRN PRN Reason: Pain or Fever Stop: 10/06/21 23:50 Aspirin (Aspirin 81 Mg Ectab) 81 mg PO DAILY [facility] Stop: 10/07/21 08:59 Last Admin: 09/13/21 07:59 Dose: 81 mg Documented by: Atorvastatin Calcium (Atorvastatin 40 Mg Tab) 80 mg PO HS [facility] Stop: 10/08/21 20:59 Last Admin: 09/12/21 21:52 Dose: Not Given Documented by: Clopidogrel Bisulfate (Clopidogrel Bisulfate 75 Mg Tab) 75 mg PO QAM [facility] Stop: 10/09/21 08:59 Last Admin: 09/13/21 07:59 Dose: 75 mg Documented by: Dextrose (Dextrose 50% 50 Ml Syringe) 25 - 50 ml IV UD PRN; Protocol PRN Reason: Hypoglycemia Protocol Stop: 10/06/21 23:50 Enoxaparin Sodium (Enoxaparin Inj 30 Mg/0.3 Ml Syr) 30 mg SQ QAM [facility] Stop: 10/07/21 08:59 Last Admin: 09/13/21 08:02 Dose: Not Given Documented by: Glucagon (Glucagon For Inj 1 Mg Vial) 1 mg SQ UD PRN; Protocol PRN Reason: Hypoglycemia Protocol Stop: 10/06/21 23:50 Glucose (Glucose 10 Tabs/Tube) 4 - 8 tabs PO UD PRN; Protocol PRN Reason: Hypoglycemia Protocol Stop: 10/06/21 23:50 Glucose (Glucose 40% Gel 15 Gm Tube) 15 - 30 gm PO UD PRN; Protocol PRN Reason: Hypoglycemia Protocol Stop: 10/06/21 23:50 Promethazine HCl 6.25 mg/ (Sodium Chloride) 50.25 mls @ 201 mls/hr IV Q6H PRN PRN Reason: Nausea And Vomiting Stop: 10/06/21 23:50 Insulin Aspart (Insulin Aspart 100 Units/Ml 3 Ml Pen) 0 units SC ACHS [facility] Stop: 10/06/21 23:50 Last Admin: 09/13/21 17:09 Dose: 1 units Documented by: Miscellaneous (Carbohydrates For Hypoglycemia ) 15 - 30 gm PO UD PRN PRN Reason: Hypoglycemia Protocol Stop: 10/06/21 23:50 Olanzapine (Olanzapine 10 Mg/2.1 Ml Sdv) 2.5 mg IM Q4H PRN PRN Reason: Anxiety/Agitation Stop: 10/11/21 22:51 Polyethylene Glycol (Polyethylene (Miralax) 17 Gm Pack) 17 gm PO DAILY PRN PRN Reason: Constipation Stop: 10/13/21 10:40 Tamsulosin HCl (Tamsulosin Hcl 0.4 Mg Cap) 0.4 mg PO DAILY [facility] Stop: 10/07/21 08:59 Last Admin: 09/13/21 07:59 Dose: 0.4 mg Documented by: Tolterodine Tartrate (Tolterodine Tartrate La 4 Mg Capcr) 4 mg PO DAILY [facility] Stop: 10/07/21 08:59 Last Admin: 09/13/21 07:59 Dose: 4 mg Documented by: Lost (1) Falls Encounter type: initial encounter Qualified Code(s): W19.XXXA - Unspecified fall, initial encounter
[2021-09-13] MEDS: ATORVASTATIN 40 MG TAB PO SCH (20:58)
--- NOTE | 2021-09-14 08:22 | Hospitalist Progress Note ---
Date of Service September 14, 2021 Assessment & Plan (1) Falls: Plan: Have recurrent episodes. Continue to work with PT/OT. [facility]. Medically ready for discharge. Care management is working on placement. MRI brain last Sep 2020 revealed evidence of vascular disease. MRI brain 09/08/2021: Punctate acute infarct in the right cerebellum. MRA head and neck 09/11/21 - Unremarkable MRA of the head with limited study secondary to motion degradation. neck -Limited study secondary to motion degradation. No high-grade stenosis, dissection, aneurysm or arterial occlusion identified. Transthoracic echo - no ASD, LV grossly normal size. EF 55 to 60%. RV systolic function normal. LA size is normal. RA size is normal. PFO not assessed. Hemodynamically significant valvular aortic stenosis cannot be excluded. Appreciate neurology input. Continue with Plavix/aspirin/Lipitor. (2) Dementia: Plan: High risk for delirium, cont reorienting when necessary (3) Diabetes mellitus, type II: Plan: A1C of 7.8. cont novolog for coverage. Glargine stopped , inpatient glucose at goal . (4) Hypertension: Plan: chronic, controlled, cont current therapy. (5) CVA (cerebral vascular accident): Plan: cont medical management including aspirin and statin therapy. (6) BPH (benign prostatic hyperplasia): Plan: Cont tamsulosin per home regimen. (7) DVT prophylaxis: Plan: Lovenox Full Code Dispo-to SNF/plan for discharge to [place] on Thursday Admission and Anticipated Discharge Date Admission Date: September 07, 2021 Subjective Patient seen in follow-up, after fall, history of dementia, acute cerebellar stroke Currently patient is sitting up in chair, in no acute distress He cannot tell me where he is He feels comfortable, resting, has no complaints Denies any fevers, chills, headache, chest pain shortness of breath, abdominal pain Review of Systems Review of Systems: All systems reviewed & are unremarkable except as noted in Subjective Physical Exam Physical Exam: General: elderly M in NAD HENT: NCAT, MMM, EOMI Eyes: EOMI, PERRL Neck: Supple, normal range of motion CVS: normal rate and rhythm Resp: b/l good breath sounds Abdomen: Soft, ND/NT, +BS Extremities: No c/c/e Neuro: Awake and alert, able to answer some questions appropriately, face symmetric, speech is clear, moves extremities Skin: warm and dry, no rashes/lesions/erythema MSK: normal ROM, no joint swelling/erythema Results & Data Results & Data ([facility]) Vital Signs (Past 12 Hours) Vital Signs Temp Pulse Resp BP BP Pulse Ox 09/14/21 08:03 36.4 C L 83 20 133/78 93 09/14/21 02:00 36.4 C L 74 18 124/77 92 09/13/21 20:26 36.4 C L 75 18 107/64 98 Medications Administered Current Inpatient Medications Acetaminophen (Acetaminophen 325 Mg Tab) 650 mg PO Q4H PRN PRN Reason: Pain or Fever Stop: 10/06/21 23:50 Aspirin (Aspirin 81 Mg Ectab) 81 mg PO DAILY [facility] Stop: 10/07/21 08:59 Last Admin: 09/13/21 07:59 Dose: 81 mg Documented by: Atorvastatin Calcium (Atorvastatin 40 Mg Tab) 80 mg PO HS [facility] Stop: 10/08/21 20:59 Last Admin: 09/13/21 20:58 Dose: 80 mg Documented by: Clopidogrel Bisulfate (Clopidogrel Bisulfate 75 Mg Tab) 75 mg PO QAM [facility] Stop: 10/09/21 08:59 Last Admin: 09/13/21 07:59 Dose: 75 mg Documented by: Dextrose (Dextrose 50% 50 Ml Syringe) 25 - 50 ml IV UD PRN; Protocol PRN Reason: Hypoglycemia Protocol Stop: 10/06/21 23:50 Enoxaparin Sodium (Enoxaparin Inj 30 Mg/0.3 Ml Syr) 30 mg SQ QAM [facility] Stop: 10/07/21 08:59 Last Admin: 09/13/21 08:02 Dose: Not Given Documented by: Glucagon (Glucagon For Inj 1 Mg Vial) 1 mg SQ UD PRN; Protocol PRN Reason: Hypoglycemia Protocol Stop: 10/06/21 23:50 Glucose (Glucose 10 Tabs/Tube) 4 - 8 tabs PO UD PRN; Protocol PRN Reason: Hypoglycemia Protocol Stop: 10/06/21 23:50 Glucose (Glucose 40% Gel 15 Gm Tube) 15 - 30 gm PO UD PRN; Protocol PRN Reason: Hypoglycemia Protocol Stop: 10/06/21 23:50 Promethazine HCl 6.25 mg/ (Sodium Chloride) 50.25 mls @ 201 mls/hr IV Q6H PRN PRN Reason: Nausea And Vomiting Stop: 10/06/21 23:50 Insulin Aspart (Insulin Aspart 100 Units/Ml 3 Ml Pen) 0 units SC ACHS [facility] Stop: 10/06/21 23:50 Last Admin: 09/13/21 20:58 Dose: 2 units Documented by: Miscellaneous (Carbohydrates For Hypoglycemia ) 15 - 30 gm PO UD PRN PRN Reason: Hypoglycemia Protocol Stop: 10/06/21 23:50 Olanzapine (Olanzapine 10 Mg/2.1 Ml Sdv) 2.5 mg IM Q4H PRN PRN Reason: Anxiety/Agitation Stop: 10/11/21 22:51 Polyethylene Glycol (Polyethylene (Miralax) 17 Gm Pack) 17 gm PO DAILY PRN PRN Reason: Constipation Stop: 10/13/21 10:40 Tamsulosin HCl (Tamsulosin Hcl 0.4 Mg Cap) 0.4 mg PO DAILY [facility] Stop: 10/07/21 08:59 Last Admin: 09/13/21 07:59 Dose: 0.4 mg Documented by: Tolterodine Tartrate (Tolterodine Tartrate La 4 Mg Capcr) 4 mg PO DAILY [facility] Stop: 10/07/21 08:59 Last Admin: 09/13/21 07:59 Dose: 4 mg Documented by: (1) Falls Encounter type: initial encounter Qualified Code(s): W19.XXXA - Unspecified fall, initial encounter
[2021-09-14] MEDS: ENOXAPARIN INJ 30 MG/0.3 ML SYR SQ SCH (09:15)
[2021-09-14] MEDS: TOLTERODINE TARTRATE LA 4 MG CAPCR PO SCH (09:16)
[2021-09-14] MEDS: CLOPIDOGREL BISULFATE 75 MG TAB PO SCH (09:16)
[2021-09-14] MEDS: TAMSULOSIN HCL 0.4 MG CAP PO SCH (09:16)
[2021-09-14] MEDS: INSULIN ASPART 100 UNITS/ML 3 ML PEN SC SCH ×4 (09:17→20:19)
[2021-09-14] MEDS: ASPIRIN 81 MG ECTAB PO SCH (09:17)
[2021-09-14] MEDS: ATORVASTATIN 40 MG TAB PO SCH (20:19)
[2021-09-15] MEDS: OLANZapine 10 MG/2.1 ML SDV IM PRN ×2 (00:39→23:41)
--- NOTE | 2021-09-15 08:13 | Hospitalist Progress Note ---
Date of Service September 15, 2021 Assessment & Plan (1) Falls: Plan: Have recurrent episodes. Continue to work with PT/OT. Recommending [facility] facility. Medically ready for discharge. Care management is working on placement. MRI brain last Sep 2020 revealed evidence of vascular disease. MRI brain 09/08/2021: Punctate acute infarct in the right cerebellum. MRA head and neck 09/11/21 - Unremarkable MRA of the head with limited study secondary to motion degradation. neck -Limited study secondary to motion degradation. No high-grade stenosis, dissection, aneurysm or arterial occlusion identified. Transthoracic echo - no ASD, LV grossly normal size. EF 55 to 60%. RV systolic function normal. LA size is normal. RA size is normal. PFO not assessed. Hemodynamically significant valvular aortic stenosis cannot be excluded. Appreciate neurology input. Continue with Plavix/aspirin/Lipitor. (2) Dementia: Plan: High risk for delirium, cont reorienting when necessary (3) Diabetes mellitus, type II: Plan: A1C of 7.8. cont novolog for coverage. Glargine stopped , inpatient glucose at goal . (4) Hypertension: Plan: chronic, controlled, cont current therapy. (5) CVA (cerebral vascular accident): Plan: cont medical management including aspirin and statin therapy. (6) BPH (benign prostatic hyperplasia): Plan: Cont tamsulosin per home regimen. (7) DVT prophylaxis: Plan: Lovenox Full Code Dispo-to SNF/plan for discharge to [place] on Thursday Admission and Anticipated Discharge Date Admission Date: September 07, 2021 Subjective Patient seen in follow-up, after fall, history of dementia, acute cerebellar stroke Currently patient is sitting up in chair, in no acute distress He feels comfortable, resting, has no complaints Denies any fevers, chills, headache, chest pain shortness of breath, abdominal pain Review of Systems Review of Systems: All systems reviewed & are unremarkable except as noted in Subjective Physical Exam Physical Exam: General: elderly M in NAD HENT: NCAT, MMM, EOMI Eyes: EOMI, PERRL Neck: Supple, normal range of motion CVS: normal rate and rhythm Resp: b/l good breath sounds Abdomen: Soft, ND/NT, +BS Extremities: No c/c/e Neuro: Awake and alert, able to answer some questions appropriately, face symmetric, speech is clear, moves extremities Skin: warm and dry, no rashes/lesions/erythema MSK: normal ROM, no joint swelling/erythema Results & Data Results & Data ([facility]) Vital Signs (Past 12 Hours) Vital Signs Temp Pulse Resp BP Pulse Ox 09/15/21 07:23 36.6 C 120 H 18 95 09/14/21 23:00 36.6 C 84 20 122/74 97 Medications Administered Current Inpatient Medications Acetaminophen (Acetaminophen 325 Mg Tab) 650 mg PO Q4H PRN PRN Reason: Pain or Fever Stop: 10/06/21 23:50 Aspirin (Aspirin 81 Mg Ectab) 81 mg PO DAILY [facility] Stop: 10/07/21 08:59 Last Admin: 09/14/21 09:17 Dose: 81 mg Documented by: Atorvastatin Calcium (Atorvastatin 40 Mg Tab) 80 mg PO HS [facility] Stop: 10/08/21 20:59 Last Admin: 09/14/21 20:19 Dose: 80 mg Documented by: Clopidogrel Bisulfate (Clopidogrel Bisulfate 75 Mg Tab) 75 mg PO QAM [facility] Stop: 10/09/21 08:59 Last Admin: 09/14/21 09:16 Dose: 75 mg Documented by: Dextrose (Dextrose 50% 50 Ml Syringe) 25 - 50 ml IV UD PRN; Protocol PRN Reason: Hypoglycemia Protocol Stop: 10/06/21 23:50 Enoxaparin Sodium (Enoxaparin Inj 30 Mg/0.3 Ml Syr) 30 mg SQ QAM [facility] Stop: 10/07/21 08:59 Last Admin: 09/14/21 09:15 Dose: 30 mg Documented by: Glucagon (Glucagon For Inj 1 Mg Vial) 1 mg SQ UD PRN; Protocol PRN Reason: Hypoglycemia Protocol Stop: 10/06/21 23:50 Glucose (Glucose 10 Tabs/Tube) 4 - 8 tabs PO UD PRN; Protocol PRN Reason: Hypoglycemia Protocol Stop: 10/06/21 23:50 Glucose (Glucose 40% Gel 15 Gm Tube) 15 - 30 gm PO UD PRN; Protocol PRN Reason: Hypoglycemia Protocol Stop: 10/06/21 23:50 Promethazine HCl 6.25 mg/ (Sodium Chloride) 50.25 mls @ 201 mls/hr IV Q6H PRN PRN Reason: Nausea And Vomiting Stop: 10/06/21 23:50 Insulin Aspart (Insulin Aspart 100 Units/Ml 3 Ml Pen) 0 units SC ACHS [facility] Stop: 10/06/21 23:50 Last Admin: 09/14/21 20:19 Dose: 3 units Documented by: Miscellaneous (Carbohydrates For Hypoglycemia ) 15 - 30 gm PO UD PRN PRN Reason: Hypoglycemia Protocol Stop: 10/06/21 23:50 Olanzapine (Olanzapine 10 Mg/2.1 Ml Sdv) 2.5 mg IM Q4H PRN PRN Reason: Anxiety/Agitation Stop: 10/11/21 22:51 Last Admin: 09/15/21 00:39 Dose: 2.5 mg Documented by: Polyethylene Glycol (Polyethylene (Miralax) 17 Gm Pack) 17 gm PO DAILY PRN PRN Reason: Constipation Stop: 10/13/21 10:40 Tamsulosin HCl (Tamsulosin Hcl 0.4 Mg Cap) 0.4 mg PO DAILY [facility] Stop: 10/07/21 08:59 Last Admin: 09/14/21 09:16 Dose: 0.4 mg Documented by: Tolterodine Tartrate (Tolterodine Tartrate La 4 Mg Capcr) 4 mg PO DAILY [facility] Stop: 10/07/21 08:59 Last Admin: 09/14/21 09:16 Dose: 4 mg Documented by: (1) Falls Encounter type: initial encounter Qualified Code(s): W19.XXXA - Unspecified fall, initial encounter
[2021-09-15] MEDS: ENOXAPARIN INJ 30 MG/0.3 ML SYR SQ SCH (09:24)
[2021-09-15] MEDS: TOLTERODINE TARTRATE LA 4 MG CAPCR PO SCH (09:25)
[2021-09-15] MEDS: INSULIN ASPART 100 UNITS/ML 3 ML PEN SC SCH ×4 (09:26→20:31)
[2021-09-15] MEDS: TAMSULOSIN HCL 0.4 MG CAP PO SCH (09:26)
[2021-09-15] MEDS: ASPIRIN 81 MG ECTAB PO SCH (09:26)
[2021-09-15] MEDS: CLOPIDOGREL BISULFATE 75 MG TAB PO SCH (10:20)
[2021-09-15] MEDS: ATORVASTATIN 40 MG TAB PO SCH (20:31)
[2021-09-16] MEDS: ASPIRIN 81 MG ECTAB PO SCH (08:31)
[2021-09-16] MEDS: TAMSULOSIN HCL 0.4 MG CAP PO SCH (08:31)
[2021-09-16] MEDS: TOLTERODINE TARTRATE LA 4 MG CAPCR PO SCH (08:31)
[2021-09-16] MEDS: CLOPIDOGREL BISULFATE 75 MG TAB PO SCH (08:31)
[2021-09-16] MEDS: ENOXAPARIN INJ 30 MG/0.3 ML SYR SQ SCH (08:31)
[2021-09-16] MEDS: INSULIN ASPART 100 UNITS/ML 3 ML PEN SC SCH ×2 (08:32→12:32)
--- NOTE | 2021-09-16 10:01 | Hospitalist Progress Note ---
Date of Service September 16, 2021 Assessment & Plan (1) Falls: Plan: Have recurrent episodes. Continue to work with PT/OT. Recommending senior care facility. Medically ready for discharge. Care management is working on placement. MRI brain last Sep 2020 revealed evidence of vascular disease. MRI brain 09/08/2021: Punctate acute infarct in the right cerebellum. MRA head and neck 09/11/21 - Unremarkable MRA of the head with limited study secondary to motion degradation. neck -Limited study secondary to motion degradation. No high-grade stenosis, dissection, aneurysm or arterial occlusion identified. Transthoracic echo - no ASD, LV grossly normal size. EF 55 to 60%. RV systolic function normal. LA size is normal. RA size is normal. PFO not assessed. Hemodynamically significant valvular aortic stenosis cannot be excluded. Appreciate neurology input. Continue with Plavix/aspirin/Lipitor. Plan to return to only aspirin and Lipitor. It is possible patient was not taking aspirin at home. (2) Dementia: Plan: High risk for delirium, cont reorienting when necessary (3) Diabetes mellitus, type II: Plan: A1C of 7.8. cont novolog for coverage. Glargine stopped , inpatient glucose at goal . Resume home medications on discharge, continue to monitor blood glucose levels as outpt. (4) Hypertension: Plan: chronic, controlled, cont current therapy. (5) CVA (cerebral vascular accident): Plan: cont medical management including aspirin and statin therapy. (6) BPH (benign prostatic hyperplasia): Plan: Cont tamsulosin per home regimen. (7) DVT prophylaxis: Plan: Lovenox Full Code Dispo-to SNF/plan for discharge to [place] on Thursday (today) Admission and Anticipated Discharge Date Admission Date: September 07, 2021 Subjective Patient seen in follow-up, after fall, history of dementia, acute cerebellar stroke Currently patient is sitting up in bed, in no acute distress, ate all of his breakfast He feels comfortable, resting, has no complaints Denies any fevers, chills, headache, chest pain shortness of breath, abdominal pain Review of Systems Review of Systems: All systems reviewed & are unremarkable except as noted in Subjective Physical Exam Physical Exam: General: elderly M in NAD HENT: NCAT, MMM, EOMI Eyes: EOMI, PERRL Neck: Supple, normal range of motion CVS: normal rate and rhythm Resp: b/l good breath sounds Abdomen: Soft, ND/NT, +BS Extremities: No c/c/e Neuro: Awake and alert, able to answer some questions appropriately, face symmetric, speech is clear, moves extremities Skin: warm and dry, no rashes/lesions/erythema MSK: normal ROM, no joint swelling/erythema Results & Data Results & Data ([facility]) Vital Signs (Past 12 Hours) Vital Signs Temp Pulse Resp BP Pulse Ox Pulse Ox 09/16/21 08:08 36.4 C L 72 19 153/90 H 94 09/15/21 23:00 36.7 C 86 20 134/80 96 95 Medications Administered Current Inpatient Medications Acetaminophen (Acetaminophen 325 Mg Tab) 650 mg PO Q4H PRN PRN Reason: Pain or Fever Stop: 10/06/21 23:50 Aspirin (Aspirin 81 Mg Ectab) 81 mg PO DAILY DAQUAN Stop: 10/07/21 08:59 Last Admin: 09/16/21 08:31 Dose: 81 mg Documented by: Atorvastatin Calcium (Atorvastatin 40 Mg Tab) 80 mg PO HS DAQUAN Stop: 10/08/21 20:59 Last Admin: 09/15/21 20:31 Dose: 80 mg Documented by: Clopidogrel Bisulfate (Clopidogrel Bisulfate 75 Mg Tab) 75 mg PO QAM DAQUAN Stop: 10/09/21 08:59 Last Admin: 09/16/21 08:31 Dose: 75 mg Documented by: Dextrose (Dextrose 50% 50 Ml Syringe) 25 - 50 ml IV UD PRN; Protocol PRN Reason: Hypoglycemia Protocol Stop: 10/06/21 23:50 Enoxaparin Sodium (Enoxaparin Inj 30 Mg/0.3 Ml Syr) 30 mg SQ QAM DAQUAN Stop: 10/07/21 08:59 Last Admin: 09/16/21 08:31 Dose: 30 mg Documented by: Glucagon (Glucagon For Inj 1 Mg Vial) 1 mg SQ UD PRN; Protocol PRN Reason: Hypoglycemia Protocol Stop: 10/06/21 23:50 Glucose (Glucose 10 Tabs/Tube) 4 - 8 tabs PO UD PRN; Protocol PRN Reason: Hypoglycemia Protocol Stop: 10/06/21 23:50 Glucose (Glucose 40% Gel 15 Gm Tube) 15 - 30 gm PO UD PRN; Protocol PRN Reason: Hypoglycemia Protocol Stop: 10/06/21 23:50 Promethazine HCl 6.25 mg/ (Sodium Chloride) 50.25 mls @ 201 mls/hr IV Q6H PRN PRN Reason: Nausea And Vomiting Stop: 10/06/21 23:50 Insulin Aspart (Insulin Aspart 100 Units/Ml 3 Ml Pen) 0 units SC ACHS DAQUAN Stop: 10/06/21 23:50 Last Admin: 09/16/21 08:32 Dose: Not Given Documented by: Miscellaneous (Carbohydrates For Hypoglycemia ) 15 - 30 gm PO UD PRN PRN Reason: Hypoglycemia Protocol Stop: 10/06/21 23:50 Olanzapine (Olanzapine 10 Mg/2.1 Ml Sdv) 2.5 mg IM Q4H PRN PRN Reason: Anxiety/Agitation Stop: 10/11/21 22:51 Last Admin: 09/15/21 23:41 Dose: 2.5 mg Documented by: Polyethylene Glycol (Polyethylene (Miralax) 17 Gm Pack) 17 gm PO DAILY PRN PRN Reason: Constipation Stop: 10/13/21 10:40 Tamsulosin HCl (Tamsulosin Hcl 0.4 Mg Cap) 0.4 mg PO DAILY [facility] Stop: 10/07/21 08:59 Last Admin: 09/16/21 08:31 Dose: 0.4 mg Documented by: Tolterodine Tartrate (Tolterodine Tartrate La 4 Mg Capcr) 4 mg PO DAILY [facility] Stop: 10/07/21 08:59 Last Admin: 09/16/21 08:31 Dose: 4 mg Documented by: (1) Falls Encounter type: initial encounter Qualified Code(s): W19.XXXA - Unspecified fall, initial encounter
--- NOTE | 2021-09-16 10:44 | Discharge Summary ---
Date of Service September 16, 2021 Admission HPI Per Admitting Provider Male with PMH HTN, HLD, COPD, DM II, initial show CVA on imaging, BPH, dementia presented to ER with increased confusion. History obtained from patient's daughter secondary to patient's current mental status. Reports over the past year have noticed steady decline in cognitive status with increased confusion which has worsened over the past 6 months. Reports the past week with increased confusion. Reports baseline patient knows immediate family members. Daughter states past week patient has been having increased trouble with ambulation in past couple of days has been needing to hold onto objects while walking. Today he had 2 falls within an hour. She reports he did hit his head but denies any loss of consciousness. Daughter is trying to care for patient as well as patient's who has breast cancer and is wheelchair-bound. Daughter is worried about patient's safety with his recurrent falls. Patient recently saw [facility] neurology-Dr. Gallardo and diagnosed with dementia, there was consideration for possible parkinsonian. Patient's daughter reports that he has been refusing to take medications most days. Today he had metformin and lisinopril only. Eating and drinking fairly well per daughter. She denies any known vomiting or diarrhea or fever. Reports urinary incontinence at baseline. Denies behavioral issues or wandering. Patient awake and oriented to person, and knows he is in hospital reports that it is [facility]. ED is currently denying any headache, dizziness, vision changes, chest pain, shortness of breath, nausea, abdominal pain, extremity pain, cough, dysuria. In ER patient afebrile, BP 100/63, 96% on room air. No leukocytosis. Initial lactate 2.7 down to 2.1. UA 1+ ketones, 1+ protein. CT head: No acute intracranial findings. Chest x-ray no acute infiltrate. In ER was given 500 mL NSS. Admission Exam Per Admitting Provider General: no distress, WDWN Head: normocephalic, atraumatic Eyes: PERRL, EOM's intact, conjunctiva non-injected, anicteric ENT: normal inspection external ears, nose, mucous membranes dry Neck: supple, trachea midline Lungs: clear, no respiratory distress, no wheezing/rhonchi/rales CV: RRR, no murmur, no pretibial edema Abd: normal BS, soft, non-tender Ext: no cyanosis, no calf tenderness Neuro: Alert, oriented to person, knows in [facility], reports its 1993, does not know month or president Skin: warm, dry; left foot: plantar surface with ulcer without surrounding erythema, without discharge Principal Diagnosis Recurrent falls Dementia Acute small cerebellar stroke Discharge Exam General: elderly M in NAD HENT: NCAT, MMM, EOMI Eyes: EOMI, PERRL Neck: Supple, normal range of motion CVS: normal rate and rhythm Resp: b/l good breath sounds Abdomen: Soft, ND/NT, +BS Extremities: No c/c/e Neuro: Awake and alert, able to answer some questions appropriately, face symmetric, speech is clear, moves extremities Skin: warm and dry, no rashes/lesions/erythema MSK: normal ROM, no joint swelling/erythema Discharge Data Allergies Allergy/AdvReac Type Severity Reaction Status Date / Time iodine Allergy Severe (FROM Verified 09/06/21 23:43 CONTRAST MEDIA)sob, sneezing, wheezing Consultations 09/06/21 20:22 ED Decision to Admit Stat 09/08/21 18:52 Consult Neurology Routine Ordered Studies 09/06/21 16:39 CT head/brain wo con Stat 09/08/21 09:09 MR brain wo con Routine 09/11/21 11:14 MR angio head wo con Routine MR angio neck wo con Routine Hospital Course (1) Falls: Have recurrent episodes. Continue to work with PT/OT. Recommending retirement facility. Medically ready for discharge. Care management is working on placement. MRI brain last Sep 2020 revealed evidence of vascular disease. MRI brain 09/08/2021: Punctate acute infarct in the right cerebellum. MRA head and neck 09/11/21 - Unremarkable MRA of the head with limited study se condary to motion degradation. neck -Limited study secondary to motion degradation. No high-grade stenosis, dissection, aneurysm or arterial occlusion identified. Transthoracic echo - no ASD, LV grossly normal size. EF 55 to 60%. RV systolic function normal. LA size is normal. RA size is normal. PFO not assessed. Hemodynamically significant valvular aortic stenosis cannot be excluded. Appreciate neurology input. Continue with Plavix/aspirin/Lipitor. Plan to return to only aspirin and Lipitor. It is possible patient was not taking aspirin at home. (2) Dementia: High risk for delirium, cont reorienting when necessary (3) Diabetes mellitus, type II: A1C of 7.8. cont novolog for coverage. Glargine stopped , inpatient glucose at goal . Resume home medications on discharge, continue to monitor blood glucose levels as outpt. (4) Hypertension: chronic, controlled, cont current therapy. (5) CVA (cerebral vascular accident): cont medical management including aspirin and statin therapy. (6) BPH (benign prostatic hyperplasia): Cont tamsulosin per home regimen. (7) DVT prophylaxis: Lovenox Full Code Dispo-to SNF/plan for discharge to [place] on Thursday (today) Total Time Total Time Spent Total Time Spent (In Minutes): 35 Discharge Plan Discharge Items Patient Disposition: Transfer Nursing Home Fac Reason For Visit: TRANSIENT HYPOTENSION, RECURRENT FALLS Discharge Diagnosis: Recurrent falls Dementia Acute small cerebellar stroke Activity: Per Instructions section Non-emergency contact: Primary Care Provider Call non-emergency contact if: you have any medication questions and your symptoms worsen Follow-up/Referrals: Eriberto Mendoza MD [Primary Care Provider] - Diet: Carb Consistent or DM2 and Heart Healthy Addtl Attending Provider Instructions: Take aspirin and Plavix together for next 10 days, then take aspirin daily only indefinitely. Also take atorvastatin daily. While you were in the hospital, your blood pressures were usually on the lower side or at goal. You were not taking lisinopril here. Recommend to stop lisinopril and monitor your blood pressure. Your primary care doctor can restart lisinopril if your blood pressure is elevated. Also recommend to monitor your blood sugars as your home medications were held while you were in the hospital. Pending Studies at Discharge: No Stand-Alone Forms: [facility] Skilled Items Patient informed of condition?: Yes DNR: No Discharge Level of Care: Skilled Communicable Disease: No Discharge Prognosis: Stable Lines: None Urinary Catheter: No Medications and DC Order Prescriptions: New clopidogrel 75 mg Tablet 75 mg PO QAM Qty: 10 RF: 0 atorvastatin 80 mg tablet 80 mg PO HS Qty: 30 RF: 0 Continued tolterodine [Detrol LA] 4 mg Capsule,Extended Release 24hr 4 mg PO DAILY RF: 0 glipizide 10 mg Tablet Extended Release 24hr 10 mg PO DAILY RF: 0 metformin 500 mg Tablet Extended Release 24 Hr 1,000 mg PO BID RF: 0 Tradjenta 5 mg Tablet 5 mg PO DAILY RF: 0 polyethylene glycol 3350 [Miralax] 17 gram Powder In Packet 17 g PO DAILY PRN (Reason: Constipation) RF: 0 tamsulosin 0.4 mg capsule 0.4 mg PO DAILY RF: 0 aspirin 81 mg Tablet 81 mg PO DAILY RF: 0 Discontinued lisinopril 10 mg Tablet 10 mg PO DAILY RF: 0 Discharge Orders: Discharge Order (Routine); Ordered 09/16/21 Ordered By: Mukul Owusu Admission Data Admit Date/Time: 09/07/21 15:43 Attending Provider: Mukul Owusu Admit Provider: Rafael Miranda Primary Care Provider: Eriberto Mendoza Other Providers: [facility] ; [facility] [place] ; [facility] ; Joesph Hall ; Rafael Miranda ; Bethany Grimes
== END 2021-09-16 14:00 | DRG 66 ==
LOC: ED 16:31 → 2N 16:31 → SUATTDRO 09-07 15:43

== ENCOUNTER 2021-11-03 09:26 | Inpatient (IN) ==
[2021-11-03 09:56] LABS: Basophils # (auto) 0.01 K/uL (0-0.2); Basophils % (auto) 0.1 %; Eosinophils % (auto) 0.8 %; Hematocrit (blood only) 36.6 % (42-52); Hemoglobin 11.9 g/dL (14.0-18.0); Immature Granulocytes # (auto) 0.09 K/uL (0.00-0.02); Immature Granulocytes % (auto) 0.7 %; Lymphocytes # (auto) 1.94 K/uL (1.2-3.4); Lymphocytes % (auto) 15.6 %; Mean Corpuscular Hgb Conc 32.5 g/dL (32-36); Mean Corpuscular Volume 98.4 fL (80-100); Mean Platelet Volume 8.7 fL (7.4-10.4); Monocytes % (auto) 10.4 %; Neutrophils # (auto) 9.01 K/uL (1.4-6.5); Neutrophils % (auto) 72.4 %; Platelet Count 491 K/uL (130-400); RDW Standard Deviation 47.1 fL (36.4-46.3); Red Blood Count 3.72 M/uL (4.7-6.1); White Blood Count 12.45 K/uL (4.8-10.8)
--- NOTE | 2021-11-03 09:59 | CT Scan Report ---
CT head/brain wo con CLINICAL HISTORY: 81 years-old Male with Stroke Like Symptoms. Acute strokelike symptoms TECHNIQUE: Multiple axial CT images of the head were obtained without contrast. A dose lowering tech nique was utilized adhering to the principles of ALARA. CT DOSE: 638.84 mGy.cm COMPARISON: Brain MRI 09/08/2021, head CT 09/06/2021 FINDINGS: No acute intracranial hemorrhage, midline shift, intracranial mass, hydrocephalus, territorial ischem ia or abnormal extra-axial collection. Age-related involutional changes. White matter hypodensities s uggestive of chronic microvascular ischemic disease. Chronic left occipital infarct with encephalomal acia. Subcentimeter subacute to chronic appearing infarct of the right cerebellar hemisphere dentate nucleus. Cerebral vascular calcifications. The calvarium is intact. Trace right mastoid effusion. Left mastoid air cells and paranasal sinuses are generally clear. Orbits and soft tissues are unremarkable. IMPRESSION: No acute intracranial abnormality. ACT 112: Negative or not required by law. The above report was generated using voice recognition software. It may contain grammatical, syntax o r spelling errors. Electronically signed by: Saturnino Contreras M.D. 11/03/2021 9:58 AM
--- NOTE | 2021-11-03 10:07 | Emergency Department Note ---
Impression & Plan Fall, Stroke-like symptoms, Opacity of lung on imaging study Admit to the [facility] ED Provider Note NAME: APRIL AMADOR AGE: 81 SEX: M ARRIVES VIA: Ambulance INFORMANT: Patient ED PROVIDER(S): Blanca Robin DO CHIEF COMPLAINT: Stroke PLAN: Disposition: Admit to the [facility] Condition: Stable MEDICAL DECISION MAKING: This is an 81-year-old male patient who presents to the emergency department from [facility] after being found on the floor at 8 AM this morning. Patient has a history of a cerebellar stroke 2 months ago. He does have mild dementia. CT of the brain is unchanged. The patient's strokelike symptoms are waxing and waning. Chest x-ray shows a right upper lung opacity and the patient does have a mildly elevated white blood cell count but no symptoms of shortness of breath and no history of respiratory illness. I did have a discussion with the patient's daughter at the bedside who explains that he does have these neurological symptoms that seem to wax and wane and he has had increased falls. Patient would not be a candidate for for thrombolytics. discussed the case with the [facility] and they will evaluate for further management. Triage Nursing notes reviewed and agree with them. Additional history obtained from EMS Prior medical records reviewed Vital Signs: reviewed and unremarkable Differential diagnosis: Pneumonia, UTI, CVA, TIA Diagnostics interpreted by me: ECG: Normal sinus rhythm at 81 with first-degree AV block and right bundle branch block. There is no ST segment elevation or signs of ischemia. There is no ectopy. Cardiac Monitoring: Normal sinus rhythm at a rate of 81 Laboratory studies: See below Imaging studies: As per radiology CT head HPI: 81/M arrives for evaluation of fall. Patient was last noted at his baseline at 5:30 AM. He was then found on the floor at 8 AM. He has a history of previous strokes. He was thought to have some right-sided weakness and facial droop and was transferred here as a stroke alert. ROS: See above HPI for pertinent positives & negatives. A total of 10 systems reviewed and were otherwise negative. PAST MEDICAL HISTORY:See Below PAST SURGICAL HISTORY:See Below FAMILY HISTORY:See Below SOCIAL HISTORY:See Below HOME MEDICATIONS:See list ALLERGIES:See list VITALS:See Below PHYSICAL EXAMINATION: HEENT: Head - normocephalic and atraumatic. Pupils are equal, round, and reactive to light. Extraocular eye muscles are intact and sclera are anicteric. Nose - moist nasal mucosa without discharge. Mouth - moist buccal mucosa. Or opharynx is nonerythematous and there is no tonsillar exudate or edema noted. Neck: Supple; no JVD or cervical lymphadenopathy Heart: Regular rate and rhythm. There is a normal S1 and S2 with no murmurs, clicks, or gallops appreciated. Lungs: Clear to auscultation bilaterally with no wheezes, rales, or rhonchi. Abdomen: Soft, completely nontender, nondistended, with good bowel sounds. There are no palpable pulsatile masses or hepatosplenomegaly. There is no guarding, rigidity, or rebound noted. Extremities: No evidence of cyanosis, clubbing, or edema. There are easily palpable peripheral pulses. Neuro:The patient is awake and alert and able to follow commands. There is slight facial droop to the left side of the mouth. The patient has equal dictating transcribing machine servicer strength and equal pedal push and pull. However, the patient does have difficulty holding your leg up against gravity and holding the right arm up against gravity. The patient is intermittently able to answer questions appropriately ED COURSE: Times/Reassessments: 0940: The patient was evaluated in B 1. A complete history and physical was performed once the patient returned from CT. He went there initially from EMS as a stroke alert. An order was placed for continuous cardiac monitoring. He was in a normal sinus rhythm at a rate of 81. A twelve-lead EKG was obtained. Laboratory studies were drawn as above. I did discuss the case with the patient's daughter who was at the bedside and she describes waxing and waning neurological symptoms over the past couple of weeks to the point that he will at times almost be catatonic. I discussed the case with the [facility] and they will evaluate for further management. 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 Beliefs That Will Affect Care: None marital status: Current Living Situation: Residential How many Children do You have: 1 Feels Safe at Home: Yes Safety Concerns: Feels Safe At This Time Assistive Devices: Walker and Wheelchair Allergies Allergies Allergy/AdvReac Type Severity Reaction Status Date / Time iodine Allergy Severe (FROM Verified 11/03/21 11:29 CONTRAST MEDIA)sob, sneezing, wheezing Home Meds Home Medications Medication Instructions Recorded Confirmed glipizide 10 mg tablet, extended 10 mg PO DAILY 09/06/21 11/03/21 release 24 hr linagliptin 5 mg tablet (Tradjenta) 5 mg PO DAILY 09/06/21 11/03/21 metformin 500 mg tablet,extended 1,000 mg PO BID 09/06/21 11/03/21 release 24 hr tamsulosin 0.4 mg capsule 0.4 mg PO DAILY 09/06/21 11/03/21 aspirin 81 mg tablet,delayed 81 mg PO DAILY 11/03/21 11/03/21 release (Aspirin Low Dose) lorazepam 0.5 mg tablet 0.5 mg SUBLINGUAL Q4H PRN 11/03/21 11/03/21 trazodone 50 mg tablet 25 mg PO HS 11/03/21 11/03/21 Previous Rx's Medication Instructions Recorded atorvastatin 80 mg tablet 80 mg PO HS #30 tab 09/16/21 clopidogrel 75 mg tablet 75 mg PO QAM #10 tab 09/16/21 Results & Data (ED) Vital Signs Vital Signs - 24 hr 11/03/21 09:43 11/03/21 09:59 11/03/21 10:29 Temperature 36.9 C Temperature Source Oral Pulse Rate 82 Pulse Rate [Apical] 81 Respiratory Rate 20 20 Respiratory Effort / Characteristics Non-Labored Spontaneous Non-Labored Spontaneous Respiratory Depth Normal Normal Respiratory Pattern Regular Regular Blood Pressure 137/80 Blood Pressure [Right Arm] 133/80 Blood Pressure Mean 99 Blood Pressure Mean [Right Arm] 97 Pulse Oximetry 96 93 89 L Oxygen Delivery Method Room Air Room Air Room Air Sepsis Recent Fever Within 48 Hours No Sepsis New/Unexplained Change in Mental Status No Sepsis Action Taken by Nursing No Action Required Oxygen Flow Rate - Titration 2 Pulse Oximetry Post Tiitration 96 Laboratory Data Result diagrams: 11/04/21 07:56 11/04/21 07:56 Lab Results 11/03/21 11/03/21 11/03/21 Range/Units 09:41 09:43 09:43 WBC 12.45 H (4.8-10.8) K/uL RBC 3.72 L (4.7-6.1) M/uL Hgb 11.9 L (14.0-18.0) g/dL Hct 36.6 L (42-52) % MCV 98.4 (80-100) fL MCH 32.0 (25-34) pg MCHC 32.5 (32-36) g/dL RDW Std Deviation 47.1 H (36.4-46.3) fL RDW Coeff of Divina 13.0 (11.5-14.5) % Plt Count 491 H (130-400) K/uL MPV 8.7 (7.4-10.4) fL Immature Gran % (Auto) 0.7 % Neut % (Auto) 72.4 % Lymph % (Auto) 15.6 % Swift % (Auto) 10.4 % Eos % (Auto) 0.8 % Baso % (Auto) 0.1 % Neut # (Auto) 9.01 H (1.4-6.5) K/uL Lymph # (Auto) 1.94 (1.2-3.4) K/uL Swift # (Auto) 1.30 H (0.11-0.59) K/uL Eos # (Auto) 0.10 (0-0.5) K/uL Baso # (Auto) 0.01 (0-0.2) K/uL Immature Gran # (Auto) 0.09 H (0.00-0.02) K/uL PT (9.0-12.0) Seconds INR (0.9-1.1) APTT (21.0-31.0) Seconds PTT Ratio Sodium (136-145) mmol/L Potassium (3.5-5.1) mmol/L Chloride (98-107) mmol/L Carbon Dioxide (21-32) mmol/L Anion Gap (3-11) BUN (7-18) mg/dl Creatinine (0.6-1.4) mg/dl Est Cr Clr Drug Dosing ml/min Est GFR ( Amer) ml/min Est GFR (Non-Af Amer) ml/min BUN/Creatinine Ratio (10-20) Glucose (70-99) mg/dl POC Glucose 88 (70-99) mg/dl Calcium (8.5-10.1) mg/dl Magnesium (1.8-2.4) mg/dl Total Bilirubin (0.2-1) mg/dl AST (15-37) U/L ALT (12-78) Alkaline Phosphatase (45-117) U/L Troponin I (0-0.045) ng/ml Total Protein (6.4-8.2) gm/dl Albumin (3.4-5.0) gm/dl Globulin (2.5-4.0) gm/dl Albumin/Globulin Ratio (0.9-2) Procalcitonin (0-0.5) ng/ml Blood Type A Positive Antibody Screen NEGATIVE 11/03/21 11/03/21 11/03/21 Range/Units 09:43 09:43 09:47 WBC (4.8-10.8) K/uL RBC (4.7-6.1) M/uL Hgb (14.0-18.0) g/dL Hct (42-52) % MCV (80-100) fL MCH (25-34) pg MCHC (32-36) g/dL RDW Std Deviation (36.4-46.3) fL RDW Coeff of Divina (11.5-14.5) % Plt Count (130-400) K/uL MPV (7.4-10.4) fL Immature Gran % (Auto) % Neut % (Auto) % Lymph % (Auto) % Swift % (Auto) % Eos % (Auto) % Baso % (Auto) % Neut # (Auto) (1.4-6.5) K/uL Lymph # (Auto) (1.2-3.4) K/uL Swift # (Auto) (0.11-0.59) K/uL Eos # (Auto) (0-0.5) K/uL Baso # (Auto) (0-0.2) K/uL Immature Gran # (Auto) (0.00-0.02) K/uL PT 10.7 (9.0-12.0) Seconds INR 1.1 (0.9-1.1) APTT 27.1 (21.0-31.0) Seconds PTT Ratio 1.0 Sodium 141 (136-145) mmol/L Potassium 3.9 (3.5-5.1) mmol/L Chloride 107 (98-107) mmol/L Carbon Dioxide 27 (21-32) mmol/L Anion Gap 6.0 (3-11) BUN 18 (7-18) mg/dl Creatinine 0.76 (0.6-1.4) mg/dl Est Cr Clr Drug Dosing 77.4 ml/min Est GFR ( Amer) 98.5 ml/min Est GFR (Non-Af Amer) 85.0 ml/min BUN/Creatinine Ratio 24.0 H (10-20) Glucose 86 (70-99) mg/dl POC Glucose (70-99) mg/dl Calcium 10.2 H (8.5-10.1) mg/dl Magnesium 1.7 L (1.8-2.4) mg/dl Total Bilirubin 0.5 (0.2-1) mg/dl AST 14 L (15-37) U/L ALT 23 (12-78) Alkaline Phosphatase 92 (45-117) U/L Troponin I < 0.015 (0-0.045) ng/ml Total Protein 7.6 (6.4-8.2) gm/dl Albumin 3.0 L (3.4-5.0) gm/dl Globulin 4.6 H (2.5-4.0) gm/dl Albumin/Globulin Ratio 0.7 L (0.9-2) Procalcitonin 0.05 (0-0.5) ng/ml Blood Type Antibody Screen Administered Medications Aspirin (Aspirin 81 Mg Ectab) 81 mg PO DAILY [facility] Stop: 12/04/21 08:59 Last Admin: 11/04/21 10:48 Dose: 81 mg Documented by: [id number] Atorvastatin Calcium (Atorvastatin 40 Mg Tab) 80 mg PO HS [facility] Stop: 12/03/21 20:59 Last Admin: 11/03/21 20:30 Dose: 80 mg Documented by: [id number] Clopidogrel Bisulfate (Clopidogrel Bisulfate 75 Mg Tab) 75 mg PO QAM [facility] Stop: 12/04/21 08:59 Last Admin: 11/04/21 10:48 Dose: 75 mg Documented by: [id number] Heparin Sodium (Porcine) (Heparin Sod 5,000 Unit/0.5 Ml Vial) 5,000 units SQ Q12 [facility] Stop: 12/03/21 20:59 Last Admin: 11/04/21 10:48 Dose: 5,000 units Documented by: [id number] Admin: 11/03/21 20:34 Dose: 5,000 units Documented by: [id number] Ceftriaxone Sodium 1,000 mg/ (Dextrose) 50 mls @ 100 mls/hr IV Q24H [facility]; Protocol Stop: 11/10/21 19:59 Last Infusion: 11/03/21 21:09 Dose: 0 mls/hr Documented by: [id number] Admin: 11/03/21 20:29 Dose: 100 mls/hr Documented by: [id number] Azithromycin 500 mg/ Dextrose 255 mls @ 125 mls/hr IV DAILY [facility] Stop: 11/10/21 19:59 Last Infusion: 11/04/21 13:45 Dose: 0 mls/hr Documented by: [id number] Admin: 11/04/21 11:35 Dose: 125 mls/hr Documented by: [id number] Infusion: 11/03/21 23:42 Dose: 0 mls/hr Documented by: [id number] Admin: 11/03/21 21:18 Dose: 125 mls/hr Documented by: [id number] Insulin Aspart (Insulin Aspart Per Unit) 0 units SC ACHS [facility] Stop: 12/03/21 19:09 Last Admin: 11/04/21 11:35 Dose: Not Given Documented by: [id number] Admin: 11/04/21 08:58 Dose: Not Given Documented by: [id number] Admin: 11/03/21 20:45 Dose: Not Given Documented by: [id number] Cosigned by: [id number] Admin: 11/03/21 20:39 Dose: Not Given Documented by: [id number] Cosigned by: [id number] Tamsulosin HCl (Tamsulosin Hcl 0.4 Mg Cap) 0.4 mg PO DAILY [facility] Stop: 12/04/21 08:59 Last Admin: 11/04/21 10:50 Dose: 0.4 mg Documented by: [id number] Discontinued Medications Magnesium Sulfate/Dextrose (Magnesium Sulfate / D5w) 1 gm in 100 mls @ 50 mls/hr IV ONE ONE Stop: 11/03/21 21:09 Last Infusion: 11/03/21 23:42 Dose: 0 mls/hr Documented by: [id number] Admin: 11/03/21 21:18 Dose: 50 mls/hr Documented by: [id number] Imaging Data Radiologist's Impression: Head CT 11/03/21 09:33 CT head/brain wo con CLINICAL HISTORY: 81 years-old Male with Stroke Like Symptoms. Acute strokelike symptoms TECHNIQUE: Multiple axial CT images of the head were obtained without contrast. A dose lowering technique was utilized adhering to the principles of ALARA. CT DOSE: 638.84 mGy.cm COMPARISON: Brain MRI 09/08/2021, head CT 09/06/2021 FINDINGS: No acute intracranial hemorrhage, midline shift, intracranial mass, hydrocephalus, territorial ischemia or abnormal extra-axial collection. Age- related involutional changes. White matter hypodensities suggestive of chronic microvascular ischemic disease. Chronic left occipital infarct with encephalomalacia. Subcentimeter subacute to chronic appearing infarct of the right cerebellar hemisphere dentate nucleus. Cerebral vascular calcifications. The calvarium is intact. Trace right mastoid effusion. Left mastoid air cells and paranasal sinuses are generally clear. Orbits and soft tissues are unremarkable. IMPRESSION: No acute intracranial abnormality. ACT 112: Negative or not required by law. The above report was generated using voice recognition software. It may contain grammatical, syntax or spelling errors. Electronically signed by: Saturnino Contreras M.D. 11/03/2021 9:58 AM Discharge Plan Visit Data Chief Complaint: Stroke Alert ED Provider: Blanca Robin Discharge Problem: Fall, Stroke-like symptoms, Opacity of lung on imaging study Discharge Problem: Fall Qualifiers: Encounter type: initial encounter Qualified Code(s): W19.XXXA - Unspecified fall, initial encounter
[2021-11-03 10:09] LABS: INR 1.1 (0.9-1.1); Partial Thromboplastin Time 27.1 Seconds (21.0-31.0); Prothrombin Time 10.7 Seconds (9.0-12.0)
[2021-11-03 10:18] LABS: Alanine Aminotransferase 23 (12-78); Aspartate Aminotransferase 14 U/L (15-37); Blood Urea Nitrogen 18 mg/dl (7-18); Calcium 10.2 mg/dl (8.5-10.1); Carbon Dioxide 27 mmol/L (21-32); Chloride 107 mmol/L (98-107); Creatinine Clr Calc Pharmacy 77.4 ml/min; Est GFR (African American) 98.5 ml/min; Glucose 86 mg/dl (70-99); Magnesium 1.7 mg/dl (1.8-2.4); Potassium 3.9 mmol/L (3.5-5.1); Sodium 141 mmol/L (136-145)
[2021-11-03 10:22] LABS: Albumin Globulin Ratio 0.7 (0.9-2); Alkaline Phosphatase 92 U/L (45-117); Bilirubin,Total 0.5 mg/dl (0.2-1); Globulin 4.6 gm/dl (2.5-4.0); Total Protein 7.6 gm/dl (6.4-8.2); Troponin I < 0.015 ng/ml (0-0.045)
--- NOTE | 2021-11-03 11:10 | XRay Report ---
XR chest 1V portable HISTORY: 81 years-old Male hypoxia acute hypoxia COMPARISON: Chest radiograph 09/06/2021 TECHNIQUE: Portable AP view of the chest FINDINGS: The cardiomediastinal and hilar silhouettes are within normal limits. Ill-defined interstitial reticu lar opacities are most pronounced within the right upper lung. 1.7 cm nodular right upper lung opacit ies also present. No pneumothorax, large pleural effusion or lobar airspace consolidation. Degenerati ve changes of the shoulders and spine. IMPRESSION: 1. Ill-defined right upper lung predominant reticular interstitial opacities are new/progressed from prior suspicious for an infectious or inflammatory pneumonitis. 2. 1.7 cm nodular density of the right upper lung. Attention at follow-up recommended. ACT 112: Negative or not required by law. The above report was generated using voice recognition software. It may contain grammatical, syntax o r spelling errors. Electronically signed by: Saturnino Contreras M.D. 11/03/2021 11:09 AM
--- NOTE | 2021-11-03 12:01 | History & Physical Report ---
Date of Service November 03, 2021 Assessment & Plan (1) Falls: (2) Stroke-like symptom: Plan: H/O CVA Patient is 81-year-old male with PMH HTN, HLD, COPD, DM II, CVA, BPH, dementia presented to ER with c/o found on floor this morning. It is reported by [facility] staff this morning patient was at his baseline at 5:30AM. Patient was then found at 8:00am on the floor. It was reported that patient seemed to have left sided facial droop. Upon arrival to ER there was no further noted facial drooping. Patient's daughter feels he is at his baseline mental status. DDX: TIA, stroke, underlying infection (UTI, pneumonia), orthostatic hypotension, mechanical fall CT head no acute findings Currently no focal findings on exam History MRI brain 09/08/2021: Punctate acute infarct right cerebellum. Unremarkable echo and no significant carotid stenosis on studies at that time Tele to monitor for arrhythmias MRI brain Fall/aspiration precautions PT/OT consult Continue aspirin, Plavix, atorvastatin Consider neurology consult if positive MRI findings, or changing symptoms UA pending (3) Abnormal CXR: Plan: CXR: 1. Ill-defined right upper lung predominant reticular interstitial opacities are new/progressed from prior suspicious for an infectious or inflammatory pneumonitis. 2. 1.7 cm nodular density of the right upper lung. Attention at follow-up recommended No reported fever/chills, or cough WBC: 12 Procalcitonin pending COVID-19 testing pending Will start Rocephin, azithromycin CBC in am (4) Diabetes mellitus, type II: Plan: A1c: 7.8 in 08/2021 Hold home medications NovoLog sliding scale per protocol (5) Hypertension: Plan: No longer on lisinopril BP stable Monitor BP (6) Dementia: Plan: Monitor for delirium Was placed on trazodone at [facility]. Will hold and monitor for now (7) BPH (benign prostatic hyperplasia): Plan: Continue tamsulosin DVT Prophylaxis Heparin SQ DNR/DNI as per discussion with pt and pt's daughter- Elyse Follows with Dr Mendoza for routine care Pt was seen and care coordinated with Dr Marquez. See addendum History of Present Illness Chief Complaint: Found on floor, left facial droop reported Primary Care Provider: Ulices Moore DO Patient is 81-year-old male with PMH HTN, HLD, COPD, DM II, CVA, BPH, dementia presented to ER with c/o found on floor this morning. History obtained from patient's daughter, and staff secondary to patient's current mental status. Patient with steady decline in cognitive status for the past 8 months and is noted to have increased confusion. Had followed with Dr. Grimes neurology and was diagnosed with dementia and there was consideration for possible parkinsonian features. Patient was having recurrent falls and was hospitalized in August and found to have punctate infarct right cerebellum on MRI brain at that time and has been on Plavix aspirin and atorvastatin. Patient senses at [facility] in assisted living. States that he has been using wheelchair. Daughter does report patient had a fall yesterday hitting right side of his head. There is no known LOC. It is reported by [facility] staff this morning patient was at his baseline at 5:30AM. Patient was then found at 8:00am on the floor. It was reported that patient seemed to have left sided facial droop at that time and EMS was called. BSG was 145 this am. Upon arrival to ER there was no further noted facial drooping. Currently patient states he is at [facility] and is alert to person. Initial CT head no acute findings. Chest x-ray with ill-defined RUL reticular interstitial opacities. There has been no known fever or chills, cough, chest pain, shortness of breath, vision changes. Patient is unaware of any increased weakness. Patient's daughter feels he is at his baseline mental status. Allergies Allergy/AdvReac Type Severity Reaction Status Date / Time iodine Allergy Severe (FROM Verified 11/03/21 11:29 CONTRAST MEDIA)sob, sneezing, wheezing Home Medications Medication Instructions Recorded Confirmed Type glipizide 10 mg tablet, extended 10 mg PO DAILY 09/06/21 11/03/21 History release 24 hr linagliptin 5 mg tablet (Tradjenta) 5 mg PO DAILY 09/06/21 11/03/21 History metformin 500 mg tablet,extended 1,000 mg PO BID 09/06/21 11/03/21 History release 24 hr tamsulosin 0.4 mg capsule 0.4 mg PO DAILY 09/06/21 11/03/21 History atorvastatin 80 mg tablet 80 mg PO HS #30 tab 09/16/21 11/03/21 Rx clopidogrel 75 mg tablet 75 mg PO QAM #10 tab 09/16/21 11/03/21 Rx aspirin 81 mg tablet,delayed 81 mg PO DAILY 11/03/21 11/03/21 History release (Aspirin Low Dose) lorazepam 0.5 mg tablet 0.5 mg SUBLINGUAL Q4H PRN 11/03/21 11/03/21 History trazodone 50 mg tablet 25 mg PO HS 11/03/21 11/03/21 History Past Med/Surg History Medical History BPH (benign prostatic hyperplasia) CVA (cerebral vascular accident) Dementia Diabetes mellitus, type II HLD (hyperlipidemia) Hypertension Surgical History History of appendectomy History of cholecystectomy Family History Other Dementia Stroke Social History Smoking Status: Unknown if ever smoked Hx Alcohol Use: No Hx Substance Use: No Preferred Language: Pashto Communication Ability: Impaired Precipitation Equipment Tender Required: No Beliefs That Will Affect Care: None Current Living Situation: Family Feels Safe at Home: Yes Assistive Devices: Denture - Upper, Denture - Lower, Glasses and Walker Review of Systems Review of Systems: Unobtainable due to cognitive status Physical Exam Physical Exam: General: no distress, WDWN Head: normocephalic, atraumatic Eyes: PERRL, EOM's intact, conjunctiva non-injected, anicteric ENT: normal inspection external ears, nose, mucous membranes moist Neck: supple, trachea midline, non-tender Lungs: clear, no respiratory distress, no wheezing/rhonchi/rales CV: RRR, no murmur, no JVD, no pretibial edema Abd: normal BS, soft, non-tender Ext: no cyanosis, no calf tenderness Neuro: Alert, oriented to person, reports is in [facility]. Patient hard of hearing and has slow verbal responses to questions. Generalized weakness, no other focal deficits noted Skin: warm, dry Results & Data Results & Data ([facility]) Vital Signs (Past 12 Hours) Vital Signs Temp Pulse Pulse Resp BP BP Pulse Ox 11/03/21 11:37 87 24 133/82 94 11/03/21 10:29 89 L 11/03/21 09:59 81 20 133/80 93 11/03/21 09:43 36.9 C 82 20 137/80 96 Laboratory Results Short CBC 11/03/21 Range/Units 09:43 WBC 12.45 H (4.8-10.8) K/uL Hgb 11.9 L (14.0-18.0) g/dL Hct 36.6 L (42-52) % Plt Count 491 H (130-400) K/uL BMP 11/03/21 09:43 Sodium 141 Potassium 3.9 Chloride 107 Carbon Dioxide 27 BUN 18 Creatinine 0.76 Glucose 86 Calcium 10.2 H Cardiac Enzymes 11/03/21 Range/Units 09:43 Troponin I < 0.015 (0-0.045) ng/ml Liver Function 11/03/21 Range/Units 09:43 Total Bilirubin 0.5 (0.2-1) mg/dl AST 14 L (15-37) U/L ALT 23 (12-78) Alkaline Phosphatase 92 (45-117) U/L Albumin 3.0 L (3.4-5.0) gm/dl Diagnostic Findings Head CT 11/03/21 09:33 CT head/brain wo con CLINICAL HISTORY: 81 years-old Male with Stroke Like Symptoms. Acute strokelike symptoms TECHNIQUE: Multiple axial CT images of the head were obtained without contrast. A dose lowering technique was utilized adhering to the principles of ALARA. CT DOSE: 638.84 mGy.cm COMPARISON: Brain MRI 09/08/2021, head CT 09/06/2021 FINDINGS: No acute intracranial hemorrhage, midline shift, intracranial mass, hydrocephalus, territorial ischemia or abnormal extra-axial collection. Age- related involutional changes. White matter hypodensities suggestive of chronic microvascular ischemic disease. Chronic left occipital infarct with encephalomalacia. Subcentimeter subacute to chronic appearing infarct of the right cerebellar hemisphere dentate nucleus. Cerebral vascular calcifications. The calvarium is intact. Trace right mastoid effusion. Left mastoid air cells and paranasal sinuses are generally clear. Orbits and soft tissues are unremarkable. IMPRESSION: No acute intracranial abnormality. ACT 112: Negative or not required by law. The above report was generated using voice recognition software. It may contain grammatical, syntax or spelling errors. Electronically signed by: Saturnino Contreras M.D. 11/03/2021 9:58 AM Chest X-Ray 11/03/21 10:34 XR chest 1V portable HISTORY: 81 years-old Male hypoxia acute hypoxia COMPARISON: Chest radiograph 09/06/2021 TECHNIQUE: Portable AP view of the chest FINDINGS: The cardiomediastinal and hilar silhouettes are within normal limits. Ill- defined interstitial reticular opacities are most pronounced within the right upper lung. 1.7 cm nodular right upper lung opacities also present. No pneumothorax, large pleural effusion or lobar airspace consolidation. Degenerative changes of the shoulders and spine. IMPRESSION: 1. Ill-defined right upper lung predominant reticular interstitial opacities are new/progressed from prior suspicious for an infectious or inflammatory pneumonitis. 2. 1.7 cm nodular density of the right upper lung. Attention at follow-up recommended. ACT 112: Negative or not required by law. The above report was generated using voice recognition software. It may contain grammatical, syntax or spelling errors. Electronically signed by: Saturnino Contreras M.D. 11/03/2021 11:09 AM Supervising Physician Co-Signing Physician Notes Pt is a 81M with hx of Dementia, CVA, hx of fall, DMII, COPD, HLD, BPH admitted for confusion and fall with possible L sided facial droop. Exam: NAD, no facial droop but R lower lip swelling Cardiac: Normal S1/S2, no murmur Lungs: CTA, no wheezing Abd: ND, NT, soft Neuro: CN II-XII intact, EOMI, PERRLA (overall the MSK strength is decreased on all extremities) Psych: AAOx1 (person only) A/P: Confusion/fall: -CT head: no acute findings - On neuro exam: no obvious deficit - will get a MRI brain - bedside swallow test - PT/OT referral - I do not think it is necessary for a neuro consult: no neurological deficit, mental status at baseline (Mini mental as outpt was 1730) ----- however if symptoms worsen then will get neurology consult CXR finding with increased WBC: -will start the pt on Cef + Azithro -will obtain UA/UCx Agree with A/P of Vannesa Saleh PA-C (1) Falls Encounter type: initial encounter Qualified Code(s): W19.XXXA - Unspecified fall, initial encounter
--- NOTE | 2021-11-03 13:52 | Magnetic Resonance Report ---
MR brain wo con HISTORY: 81 years-old Male h/o cva acute strokelike symptoms COMPARISON: Head CT of same day, brain MRI 09/08/2021 TECHNIQUE: Multiplanar multisequence MRI of the brain was obtained without the use of IV contrast. FINDINGS: There is no restricted diffusion to suggest acute or subacute infarct. Chronic left occipital lobe in farct with encephalomalacia and gliosis. Motion degraded exam. No acute intracranial hemorrhage, midl ine shift, abnormal extra-axial collection, hydrocephalus or intracranial mass. Chronic appearing lac unar infarct of the right cerebellar hemisphere on image 6 series 5. Age-related involutional changes . Moderate T2/FLAIR hyperintense foci with unchanged small linear area of gliosis within the right fr ontal lobe. The midline structures appear unremarkable. Cerebral venous sinuses and major arterial flow voids appear patent. Mastoid air cells and paranasal sinuses are clear. The skull, orbits and soft tissues are unremarkable. IMPRESSION: 1. Motion degraded exam. No acute or subacute infarct. 2. Age-related involutional changes with moderate chronic microvascular ischemic disease. 3. Chronic left occipital and right cerebellar infarcts. ACT 112: Negative or not required by law. The above report was generated using voice recognition software. It may contain grammatical, syntax o r spelling errors. Electronically signed by: Saturnino Contreras M.D. 11/03/2021 1:51 PM
--- NOTE | 2021-11-03 14:27 | Electrocardiogram Report ---
Test Reason : Blood Pressure : / mmHG Vent. Rate : 081 BPM Atrial Rate : 081 BPM P-R Int : 230 ms QRS Dur : 122 ms QT Int : 368 ms P-R-T Axes : 000 061 050 degrees QTc Int : 427 ms Poor data quality, interpretation may be adversely affected Sinus rhythm with 1st degree A-V block Right bundle branch block Abnormal ECG When compared with ECG of 06-SEP-2021 16:51, No significant change was found Confirmed by Richard Littlejohn ([id number]) on 11/03/2021 2:26:46 PM Referred By: [facility] Confirmed By:Richard Littlejohn
[2021-11-03] MEDS ORDERED: PHARMACIST DISCHARGE MED REC CONSULT PRN (19:10)
[2021-11-03] MEDS ORDERED: DEXTROSE 50% 50 ML SYRINGE IV PRN (19:10)
[2021-11-03] MEDS ORDERED: CARBOHYDRATES FOR HYPOGLYCEMIA PO PRN (19:10)
[2021-11-03] MEDS ORDERED: GLUCOSE 40% GEL 15 GM TUBE PO PRN (19:10)
[2021-11-03] MEDS ORDERED: GLUCOSE 10 TABS/TUBE PO PRN (19:10)
[2021-11-03] MEDS ORDERED: GLUCAGON FOR INJ 1 MG VIAL SQ PRN (19:10)
[2021-11-03] MEDS ORDERED: MAGNESIUM SULFATE / D5W 1 GM/100 ML BAG IV ONE (19:10)
[2021-11-03] MEDS ORDERED: ACETAMINOPHEN 325 MG TAB PO PRN (19:10)
[2021-11-03] MEDS: cefTRIAXone SODIUM 1,000 MG in DEXTROSE 5% 50 ML IV SCH (20:29)
[2021-11-03] MEDS: ATORVASTATIN 40 MG TAB PO SCH (20:30)
[2021-11-03] MEDS: HEPARIN SOD 5,000 UNIT/0.5 ML VIAL SQ SCH (20:34)
[2021-11-03] MEDS: INSULIN ASPART PER UNIT SC SCH ×2 (20:39→20:45)
[2021-11-03] MEDS: AZITHROMYCIN 500 MG in DEXTROSE 5% 250 ML IV SCH (21:18)
[2021-11-04 08:34] LABS: Hematocrit (blood only) 38.6 % (42-52); Mean Corpuscular Hemoglobin 32.4 pg (25-34); Mean Corpuscular Hgb Conc 33.7 g/dL (32-36); Mean Corpuscular Volume 96.3 fL (80-100); Mean Platelet Volume 8.9 fL (7.4-10.4); Platelet Count 498 K/uL (130-400); RDW Coefficient of Variation 12.6 % (11.5-14.5); RDW Standard Deviation 44.5 fL (36.4-46.3); Red Blood Count 4.01 M/uL (4.7-6.1); White Blood Count 13.41 K/uL (4.8-10.8)
[2021-11-04 08:55] LABS: BUN Creatinine Ratio 27.4 (10-20); Creatinine Clr Calc Pharmacy 108.9 ml/min; Est GFR (African American) 113.3 ml/min; Est GFR (Non-African American) 97.8 ml/min; Potassium 3.8 mmol/L (3.5-5.1)
[2021-11-04] MEDS: INSULIN ASPART PER UNIT SC SCH ×4 (08:58→21:07)
[2021-11-04] MEDS: HEPARIN SOD 5,000 UNIT/0.5 ML VIAL SQ SCH ×2 (10:48→21:18)
[2021-11-04] MEDS: ASPIRIN 81 MG ECTAB PO SCH (10:48)
[2021-11-04] MEDS: CLOPIDOGREL BISULFATE 75 MG TAB PO SCH (10:48)
[2021-11-04] MEDS: TAMSULOSIN HCL 0.4 MG CAP PO SCH (10:50)
[2021-11-04] MEDS: AZITHROMYCIN 500 MG in DEXTROSE 5% 250 ML IV SCH (11:35)
[2021-11-04 11:49] LABS: Appearance Urine Clear (Clear); Bacteria Urine Automated Negative (Negative); Bilirubin Urine Negative (Negative); Blood Urine 2+ (Negative); Color Urine Yellow; Glucose Urine UA Negative (Negative); Ketones Urine 3+ (Negative); Leukocyte Esterase Urine 1+ (Negative); Nitrite Urine Negative (Negative); Protein Urine Trace (Negative); Specific Gravity Urine 1.023 (1.000-1.030); Urobilinogen Urine Negative (Negative); WBC Urine Automated >30 /hpf (0-5)
--- NOTE | 2021-11-04 21:16 | Hospitalist Progress Note ---
Date of Service November 04, 2021 Assessment & Plan (1) Falls: (2) Stroke-like symptom: Plan: H/O CVA Patient is 81-year-old male with PMH HTN, HLD, COPD, DM II, CVA, BPH, dementia presented to ER with c/o found on floor this morning. It is reported by [facility] staff this morning patient was at his baseline at 5:30AM. Patient was then found at 8:00am on the floor. It was reported that patient seemed to have left sided facial droop. Upon arrival to ER there was no further noted facial drooping. Patient's daughter feels he is at his baseline mental status. DDX: TIA, stroke, underlying infection (UTI, pneumonia), orthostatic hypotension, mechanical fall CT head no acute findings MRI showed no acute or subacute infarct. Chronic left occipital and right cerebellar infarcts. Currently no focal findings on exam Continue aspirin, Plavix, atorvastatin UA pending PT/OT eval (3) Abnormal CXR: Plan: CXR showed right upper lung predominant reticular interstitial opacities are new 1.7 cm nodular density of the right upper lung. Attention at follow-up recommended Procalcitonin normal and covid 19 negative Continue Rocephin, azithromycin Continue monitor (4) Diabetes mellitus, type II: Plan: A1c: 7.8 in 08/2021 Hold home medications NovoLog sliding scale per protocol (5) Hypertension: Plan: No longer on lisinopril BP stable Monitor BP (6) Dementia: Plan: Was placed on trazodone at [facility]. Continue Trazodone (7) BPH (benign prostatic hyperplasia): Plan: Continue tamsulosin DVT Prophylaxis Heparin SQ DNR/DNI as per discussion with pt and pt's daughter- Elyse Follows with Dr Mendoza for routine care Admission and Anticipated Discharge Date Admission Date: November 03, 2021 Subjective Pt was seen and examined for stroke like symptoms Lying in bed with no acute distress confused Staff has not be able to collect an urine symptoms on him Denies any pain, focal weakness, nausea, vomiting, cough, shortness of breath Review of Systems Review of Systems: All systems reviewed & are unremarkable except as noted in Subjective Physical Exam Physical Exam: General- No acute distress Head- atraumatic Eyes- PERRL, EOMI, ENT- oropharynx clear Neck- supple, no JVD Lungs- clear to auscultation Heart- regular rhythm; no murmur Abdomen- normal bowel sounds, soft, nontender Extremities- no calf tenderness Neuro- alert, oriented PERRL, EOMI; no facial palsy; no dysarthria Skin- warm & dry Results & Data Results & Data ([facility]) Vital Signs (Past 12 Hours) Vital Signs Temp Pulse Pulse Resp BP Pulse Ox 11/04/21 16:00 37 C 110 H 18 131/82 94 11/04/21 11:02 36.9 C 98 H 20 161/96 H 94 (1) Falls Encounter type: initial encounter Qualified Code(s): W19.XXXA - Unspecified fall, initial encounter
[2021-11-04] MEDS: cefTRIAXone SODIUM 1,000 MG in DEXTROSE 5% 50 ML IV SCH (21:17)
[2021-11-04] MEDS: ATORVASTATIN 40 MG TAB PO SCH (21:17)
[2021-11-05] MEDS: INSULIN ASPART PER UNIT SC SCH ×4 (08:58→20:12)
[2021-11-05] MEDS: AZITHROMYCIN 500 MG in DEXTROSE 5% 250 ML IV SCH (08:59)
[2021-11-05] MEDS: HEPARIN SOD 5,000 UNIT/0.5 ML VIAL SQ SCH ×2 (10:29→20:51)
[2021-11-05] MEDS: ASPIRIN 81 MG ECTAB PO SCH (10:29)
[2021-11-05] MEDS: CLOPIDOGREL BISULFATE 75 MG TAB PO SCH (10:29)
[2021-11-05] MEDS: TAMSULOSIN HCL 0.4 MG CAP PO SCH (10:29)
[2021-11-05] MEDS: ATORVASTATIN 40 MG TAB PO SCH (20:51)
[2021-11-05] MEDS: cefTRIAXone SODIUM 1,000 MG in DEXTROSE 5% 50 ML IV SCH (20:52)
--- NOTE | 2021-11-05 21:58 | Hospitalist Progress Note ---
Date of Service November 05, 2021 Assessment & Plan (1) Falls: (2) Stroke-like symptom: Plan: H/O CVA Patient is 81-year-old male with PMH HTN, HLD, COPD, DM II, CVA, BPH, dementia presented to ER with c/o found on floor this morning. It is reported by [facility] staff this morning patient was at his baseline at 5:30AM. Patient was then found at 8:00am on the floor. It was reported that patient seemed to have left sided facial droop. Upon arrival to ER there was no further noted facial drooping. Patient's daughter feels he is at his baseline mental status. DDX: TIA, stroke, underlying infection (UTI, pneumonia), orthostatic hypotension, mechanical fall CT head no acute findings MRI showed no acute or subacute infarct. Chronic left occipital and right cerebellar infarcts. Currently no focal findings on exam Continue aspirin, Plavix, atorvastatin Urine cx pending PT/OT eval (3) Abnormal CXR: Plan: CXR showed right upper lung predominant reticular interstitial opacities are new 1.7 cm nodular density of the right upper lung. Attention at follow-up recommended Procalcitonin normal and covid 19 negative Continue Rocephin, azithromycin Continue monitor (4) Diabetes mellitus, type II: Plan: A1c: 7.8 in 08/2021 Hold home medications NovoLog sliding scale per protocol (5) Hypertension: Plan: No longer on lisinopril BP stable Monitor BP (6) Dementia: Plan: Was placed on trazodone at [facility]. Continue Trazodone (7) BPH (benign prostatic hyperplasia): Plan: Continue tamsulosin DVT Prophylaxis Heparin SQ DNR/DNI as per discussion with pt and pt's daughter- Elyse Follows with Dr Mendoza for routine care Admission and Anticipated Discharge Date Admission Date: November 03, 2021 Subjective Pt was seen and examined for stroke like symptoms Lying in bed with no acute distress confused Denies any pain, focal weakness, nausea, vomiting, cough, shortness of breath Review of Systems Review of Systems: All systems reviewed & are unremarkable except as noted in Subjective Physical Exam Physical Exam: General- No acute distress Head- atraumatic Eyes- PERRL, EOMI, ENT- oropharynx clear Neck- supple, no JVD Lungs- clear to auscultation Heart- regular rhythm; no murmur Abdomen- normal bowel sounds, soft, nontender Extremities- no calf tenderness Neuro- alert, oriented PERRL, EOMI; no facial palsy; no dysarthria Skin- warm & dry Results & Data Results & Data ([facility]) Vital Signs (Past 12 Hours) Vital Signs Temp Pulse Pulse Resp BP Pulse Ox 11/05/21 20:00 36.9 C 99 H 16 106/73 94 11/05/21 16:00 88 (1) Falls Encounter type: initial encounter Qualified Code(s): W19.XXXA - Unspecified fall, initial encounter
[2021-11-06] MEDS: ASPIRIN 81 MG ECTAB PO SCH (08:21)
[2021-11-06] MEDS: AZITHROMYCIN 500 MG in DEXTROSE 5% 250 ML IV SCH (08:21)
[2021-11-06] MEDS: CLOPIDOGREL BISULFATE 75 MG TAB PO SCH (08:22)
[2021-11-06] MEDS: TAMSULOSIN HCL 0.4 MG CAP PO SCH (08:22)
[2021-11-06] MEDS: HEPARIN SOD 5,000 UNIT/0.5 ML VIAL SQ SCH ×2 (08:22→20:15)
[2021-11-06 08:26] LABS: Hematocrit (blood only) 35.8 % (42-52); Hemoglobin 11.9 g/dL (14.0-18.0); Mean Corpuscular Hemoglobin 32.2 pg (25-34); Mean Corpuscular Volume 96.8 fL (80-100); Mean Platelet Volume 8.7 fL (7.4-10.4); Platelet Count 509 K/uL (130-400); RDW Coefficient of Variation 12.8 % (11.5-14.5); RDW Standard Deviation 45.4 fL (36.4-46.3); White Blood Count 8.97 K/uL (4.8-10.8)
[2021-11-06] MEDS: INSULIN ASPART PER UNIT SC SCH ×4 (08:35→20:28)
[2021-11-06 08:37] LABS: Mean Corpuscular Hgb Conc 33.2 g/dL (32-36)
[2021-11-06 08:52] LABS: BUN Creatinine Ratio 27.7 (10-20); Calcium 9.7 mg/dl (8.5-10.1); Creatinine Clr Calc Pharmacy 90.6 ml/min; Est GFR (African American) 105.7 ml/min; Est GFR (Non-African American) 91.2 ml/min; Potassium 3.8 mmol/L (3.5-5.1)
--- NOTE | 2021-11-06 11:54 | Hospitalist Progress Note ---
Date of Service November 06, 2021 Assessment & Plan (1) Falls: (2) Stroke-like symptom: Plan: H/O CVA 81-year-old male with PMH HTN, HLD, COPD, DM II, CVA, BPH, dementia presented to ER with c/o found on floor this morning. It is reported by [facility] staff patient was at his baseline at 5:30AM the morning of presentation. Patient was then found at 8:00am on the floor. It was reported that patient seemed to have left sided facial droop. Upon arrival to ER there was no further noted facial drooping. DDX: TIA, stroke, underlying infection (UTI, aspiration pneumonia), orthostatic hypotension, mechanical fall CT head no acute findings History MRI brain 09/08/2021: Punctate acute infarct right cerebellum. Unremarkable echo and no significant carotid stenosis on studies at that time Tele to monitor for arrhythmias MRI brain this admission did not show any acute abnormalities Fall/aspiration precautions PT/OT/[employer] eval noted. Patient will need long term facility Continue aspirin, Plavix, atorvastatin Urine culture was negative. However, this was reported to have been collected after antibiotic was started. UA on admission suggestive of possible UTI (3) Abnormal CXR: Plan: CXR: 1. Ill-defined right upper lung predominant reticular interstitial opacities are new/progressed from prior suspicious for an infectious or inflammatory pneumonitis. 2. 1.7 cm nodular density of the right upper lung. Attention at follow-up recommended Based on prior workup and speech evaluations, possibility of aspiration pneumonia/pneumonitis cannot be rule out Has been on ceftriaxone and azithromycin changed to Augmentin for another 2 days to complete treatment Please ensure patient continues pured diet with aspiration precautions per speech recommendations (4) Diabetes mellitus, type II: Plan: A1c: 7.8 in 08/2021 Hold home medications NovoLog sliding scale per protocol (5) Hypertension: Plan: No longer on lisinopril BP stable Monitor BP (6) Dementia: Plan: Monitor for delirium Was placed on trazodone at [facility]. Will continue to hold and monitor for now (7) BPH (benign prostatic hyperplasia): Plan: Continue tamsulosin DVT Prophylaxis Heparin SQ DNR/DNI as per discussion with pt and pt's daughter- Elyse Follows with Dr Mendoza for routine care Discontinue akers and monitor urine output Admission and Anticipated Discharge Date Admission Date: November 03, 2021 Subjective 81-year-old male with PMH HTN, HLD, COPD, DM II, CVA, BPH, dementia brought to the ER after being found down at [facility] initial concern of possible strokelike symptoms which has resolved. Patient seen and examined this morning Patient is alert and oriented to person. Knows he is in the hospital but does not recall which. Currently denies any complaints. Denies any pain, focal weakness, nausea, vomiting, cough, shortness of breath Denies any chest pain, palpitations Denies any abdominal pain, diarrhea Per RN, patient occasionally gets confused and pulls at akers Physical Exam Constitutional: + well hydrated; no acute distress Eyes: PERRL, conjunctivae normal, anicteric sclerae ENMT: external ear and nose normal, oropharynx normal Respiratory: normal respiratory effort, lungs clear to auscultation Cardiovascular: Rate/Rhythm: regular rate and regular rhythm S1 S2 Gastrointestinal (Abdomen): normal bowel sounds, soft, nontender, no hepatosplenomegaly Musculoskeletal: No pedal edema Neurologic: AOx 1, knows he is in the hospital. Cooperative Appears weak when trying to get up from bed with assistance No focal deficits noted Genitourinary: Akers in situ with some reddish urine Results & Data Results & Data ([facility]) Vital Signs (Past 12 Hours) Vital Signs Temp Pulse Pulse Pulse Resp BP Pulse Ox 11/06/21 08:09 36.4 C L 85 18 115/74 93 11/06/21 07:43 81 11/06/21 04:00 85 14 Laboratory Results Abnormal lab results 11/05/21 11/05/21 11/06/21 Range/Units 16:36 19:55 07:47 RBC (4.7-6.1) M/uL Hgb (14.0-18.0) g/dL Hct (42-52) % Plt Count (130-400) K/uL BUN/Creatinine Ratio (10-20) Glucose (70-99) mg/dl POC Glucose 124 H 147 H 136 H (70-99) mg/dl 11/06/21 11/06/21 11/06/21 Range/Units 08:03 08:03 11:35 RBC 3.70 L (4.7-6.1) M/uL Hgb 11.9 L (14.0-18.0) g/dL Hct 35.8 L (42-52) % Plt Count 509 H (130-400) K/uL BUN/Creatinine Ratio 27.7 H (10-20) Glucose 152 H (70-99) mg/dl POC Glucose 133 H (70-99) mg/dl (1) Falls Encounter type: initial encounter Qualified Code(s): W19.XXXA - Unspecified fall, initial encounter
[2021-11-06] MEDS: AMOXICILLIN/CLAVULANATE 875 MG TAB PO SCH (17:06)
[2021-11-06] MEDS: ATORVASTATIN 40 MG TAB PO SCH (20:13)
[2021-11-07] MEDS: AMOXICILLIN/CLAVULANATE 875 MG TAB PO SCH (07:50)
[2021-11-07] MEDS: HEPARIN SOD 5,000 UNIT/0.5 ML VIAL SQ SCH (07:51)
[2021-11-07] MEDS: ASPIRIN 81 MG ECTAB PO SCH (07:51)
[2021-11-07] MEDS: CLOPIDOGREL BISULFATE 75 MG TAB PO SCH (07:51)
[2021-11-07] MEDS: TAMSULOSIN HCL 0.4 MG CAP PO SCH (07:51)
[2021-11-07] MEDS: INSULIN ASPART PER UNIT SC SCH ×2 (07:56→12:14)
--- NOTE | 2021-11-07 11:57 | Discharge Summary ---
Date of Service November 07, 2021 Admission HPI Per Admitting Provider Patient is 81-year-old male with PMH HTN, HLD, COPD, DM II, CVA, BPH, dementia presented to ER with c/o found on floor this morning. History obtained from patient's daughter, and staff secondary to patient's current mental status. Patient with steady decline in cognitive status for the past 8 months and is noted to have increased confusion. Had followed with Dr. Grimes neurology and was diagnosed with dementia and there was consideration for possible parkinsonian features. Patient was having recurrent falls and was hospitalized in August and found to have punctate infarct right cerebellum on MRI brain at that time and has been on Plavix aspirin and atorvastatin. Patient senses at [facility] in assisted living. States that he has been using wheelchair. Daughter does report patient had a fall yesterday hitting right side of his head. There is no known LOC. It is reported by [facility] staff this morning patient was at his baseline at 5:30AM. Patient was then found at 8:00am on the floor. It was reported that patient seemed to have left sided facial droop at that time and EMS was called. BSG was 145 this am. Upon arrival to ER there was no further noted facial drooping. Currently patient states he is at [facility] and is alert to person. Initial CT head no acute findings. Chest x-ray with ill-defined RUL reticular interstitial opacities. There has been no known fever or chills, cough, chest pain, shortness of breath, vision changes. Patient is unaware of any increased weakness. Patient's daughter feels he is at his baseline mental status. Admission Exam Per Admitting Provider General: no distress, WDWN Head: normocephalic, atraumatic Eyes: PERRL, EOM's intact, conjunctiva non-injected, anicteric ENT: normal inspection external ears, nose, mucous membranes moist Neck: supple, trachea midline, non-tender Lungs: clear, no respiratory distress, no wheezing/rhonchi/rales CV: RRR, no murmur, no JVD, no pretibial edema Abd: normal BS, soft, non-tender Ext: no cyanosis, no calf tenderness Neuro: Alert, oriented to person, reports is in [facility]. Patient hard of hearing and has slow verbal responses to questions. Generalized weakness, no other focal deficits noted Skin: warm, dry Principal Diagnosis Fall Pneumonia Discharge Exam Constitutional + well hydrated; no acute distress Eyes PERRL, conjunctivae normal, anicteric sclerae ENMT external ear and nose normal, oropharynx normal Respiratory normal respiratory effort, lungs clear to auscultation Cardiovascular Rate/Rhythm: regular rate and regular rhythm S1 S2 Gastrointestinal (Abdomen) normal bowel sounds, soft, nontender, no hepatosplenomegaly Musculoskeletal No pedal edema Neurologic PERRL, EOMI, accommodation nl, no face palsy, no dysarthria Power is reduced in lower extremities 4/5 Psychiatric Alert and oriented to person and place only Discharge Data Allergies Allergy/AdvReac Type Severity Reaction Status Date / Time iodine Allergy Severe (FROM Verified 11/03/21 11:29 CONTRAST MEDIA)sob, sneezing, wheezing Consultations 11/03/21 11:41 ED Decision to Admit Stat Ordered Studies 11/03/21 09:33 CT head/brain wo con Stat No acute intracranial hemorrhage, midline shift, intracranial mass, hydrocephalus, territorial ischemia or abnormal extra-axial collection. Age- related involutional changes. White matter hypodensities suggestive of chronic microvascular ischemic disease. Chronic left occipital infarct with encephalomalacia. Subcentimeter subacute to chronic appearing infarct of the right cerebellar hemisphere dentate nucleus. Cerebral vascular calcifications. The calvarium is intact. Trace right mastoid effusion. Left mastoid air cells and paranasal sinuses are generally clear. Orbits and soft tissues are unremarkable. IMPRESSION: No acute intracranial abnormality. 11/03/21 12:21 MR brain wo con Routine There is no restricted diffusion to suggest acute or subacute infarct. Chronic left occipital lobe infarct with encephalomalacia and gliosis. Motion degraded exam. No acute intracranial hemorrhage, midline shift, abnormal extra-axial collection, hydrocephalus or intracranial mass. Chronic appearing lacunar infarct of the right cerebellar hemisphere on image 6 series 5. Age-related involutional changes. Moderate T2/FLAIR hyperintense foci with unchanged small linear area of gliosis within the right frontal lobe. The midline structures appear unremarkable. Cerebral venous sinuses and major arterial flow voids appear patent. Mastoid air cells and paranasal sinuses are clear. The skull, orbits and soft tissues are unremarkable. IMPRESSION: 1. Motion degraded exam. No acute or subacute infarct. 2. Age-related involutional changes with moderate chronic microvascular ischemic disease. 3. Chronic left occipital and right cerebellar infarcts Hospital Course (1) Falls: (2) Stroke-like symptom: H/O CVA Patient is 81-year-old male with PMH HTN, HLD, COPD, DM II, CVA, BPH, dementia presented to ER with c/o found on floor this morning. It is reported by [facility] staff the morning of presentation, patient was at his baseline at 5:30AM. Patient was then found at 8:00am on the floor. It was reported that patient seemed to have left sided facial droop. Upon arrival to ER there was no further noted facial drooping. Patient's daughter feels he is at his baseline mental status. DDX: TIA, stroke, underlying infection (UTI, pneumonia), orthostatic hypotension, mechanical fall CT head no acute findings MRI showed no acute or subacute infarct. Chronic left occipital and right ce rebellar infarcts. Currently no focal findings on exam Continue aspirin, Plavix, atorvastatin Had PT/OT while inpatient. Will continue at [facility] (3) Abnormal CXR: CXR showed right upper lung predominant reticular interstitial opacities are new 1.7 cm nodular density of the right upper lung. Attention at follow-up recommended Procalcitonin normal and covid 19 negative Was treated with antibiotics for pneumonia (4) Diabetes mellitus, type II: A1c: 7.8 in 08/2021 Continue home antidiabetics (5) Hypertension: No longer on lisinopril BP stable Monitor BP (6) Dementia: Was placed on trazodone at [facility]. Continue Trazodone (7) BPH (benign prostatic hyperplasia): Continue tamsulosin Called daughter and updated her Total Time Total Time Spent Total Time Spent (In Minutes): 45 Total Time Includes: Examination of the Patient, Discharge Planning, Medication Reconciliation and Other Discharge Plan Discharge Items Patient Disposition: Transfer Longterm Fac Reason For Visit: STROKE LIKE SYMPTOMS Discharge Diagnosis: Fall Pneumonia Activity: As commented below Activity Comment: Per PT recommendations Non-emergency contact: Primary Care Provider Call non-emergency contact if: you have any medication questions and your symptoms worsen Follow-up/Referrals: Ulices Moore, [Primary Care Provider] - Diet: Carb Consistent or DM2 and Heart Healthy Diet Texture: Pureed (blended smooth) Diet Comment: Pureed IDDSI 4 diet, aspiration precautions, meds crushed and in carrier. Addtl Attending Provider Instructions: Mr Pelaez You were brought to the hospital after being found down. You were evaluated and was not noted to have any new stroke on CT and MRI. You were managed for pneumonia. You were also evaluated by speech therapist and adjustments made to your diet as detailed above. It is very important that you failed with aspiration precautions, pured diet, meds crushed and with assistance. Meals should be supervised to minimize risk of aspiration. Did not require as needed Ativan throughout hospital stay hence was discontinued in your discharge medication list. It was a pleasure taking care of you Pending Studies at Discharge: No Stand-Alone Forms: My [facility] Skilled Items Patient informed of condition?: Yes DNR: Yes Discharge Level of Care: Skilled Communicable Disease: No Discharge Prognosis: Stable Lines: None Urinary Catheter: No Medications and DC Order Prescriptions: New amoxicillin-pot clavulanate [Augmentin] 875-125 mg Tablet 1 tab PO BIDM 2 Days Qty: 4 RF: 0 Continued glipizide 10 mg Tablet Extended Release 24hr 10 mg PO DAILY RF: 0 metformin 500 mg Tablet Extended Release 24 Hr 1,000 mg PO BID RF: 0 Tradjenta 5 mg Tablet 5 mg PO DAILY RF: 0 tamsulosin 0.4 mg capsule 0.4 mg PO DAILY RF: 0 clopidogrel 75 mg Tablet 75 mg PO QAM Qty: 10 RF: 0 atorvastatin 80 mg tablet 80 mg PO HS Qty: 30 RF: 0 aspirin [Aspirin Low Dose] 81 mg Tablet,Delayed Release (Dr/Ec) 81 mg PO DAILY RF: 0 trazodone 50 mg tablet 25 mg PO HS RF: 0 Discontinued lorazepam 0.5 mg tablet 0.5 mg sublingual Q4H PRN (Reason: Anxiety) RF: 0 Discharge Orders: Discharge Order (Routine); Ordered 11/07/21 Ordered By: Sabina Florian Admission Data Admit Date/Time: 11/03/21 12:16 Attending Provider: Sabina Florian I. Admit Provider: Nydia Marquez Primary Care Provider: Ulices Moore Other Providers: Nydia Marquez Other Interventions: Discharge Summary Assessment (RN) Last Done: 11/07/21 12:46
== END 2021-11-07 16:14 | DRG 194 ==
LOC: ED 09:26 → EDINP 12:16 → SUATTDRO 12:16 → 2N 17:53

== ENCOUNTER 2022-04-29 12:32 | Inpatient (IN) ==
--- NOTE | 2022-04-29 12:45 | Emergency Department Note ---
Impression & Plan Altered mental status, UTI (urinary tract infection), Hypomagnesemia ED Provider Note NAME: APRIL AMADOR AGE: 81 SEX: M : 1940 ARRIVES VIA: Ambulance INFORMANT: Patient ED PROVIDER(S): Gucci Smith DO CHIEF COMPLAINT: left sided facial droop HPI: Patient is an 81-year-old male with a past medical history of CVA, falls, hyperlipidemia, hypertension and diabetes who presents to the ER for left-sided facial droop. Uncertain of when the symptoms occurred. History is limited secondary to mentation as he does have a history of dementia and is able to answer questions sometimes appropriately. Patient denies any headache or change in vision. No chest pain or shortness of breath. No nausea, vomiting, or diarrhea. No dysuria, urgency, or frequency. We also note that he has had a decreased level of consciousness since this is occurred as well. Patient was picked up by EMS and found to have blood sugar of 50. They were given him an amp of D50 with no improvement of symptoms. ROS: See above HPI for pertinent positives & negatives. A total of 10 systems reviewed and were otherwise negative. PAST MEDICAL HISTORY:See Below PAST SURGICAL HISTORY:See Below FAMILY HISTORY:See Below SOCIAL HISTORY:See Below HOME MEDICATIONS:See Below ALLERGIES:See Below VITALS:See Below PHYSICAL EXAMINATION: GENERAL: Sitting up in bed, alert, mildly ill-appearing, disheveled EYE EXAM: normal conjunctiva. PERRL and EOM's grossly intact. OROPHARYNX: no exudate, no erythema, lips, buccal mucosa, and tongue normal and mucous membranes are moist NECK: supple, no nuchal rigidity, no adenopathy, non-tender LUNGS: Clear to auscultation. Normal chest wall mechanics HEART: no murmurs, S1 normal and S2 normal ABDOMEN: abdomen soft, non-tender, normo-active bowel sounds, no masses, no rebound or guarding. BACK: Back is symmetrical on inspection and there is no deformity, no midline tenderness, no CVA tenderness. SKIN: no rashes and no bruising UPPER EXTREMITIES: upper extremities are grossly normal. LOWER EXTREMITIES: No pitting edema. NEURO EXAM: Oriented to person but not place or year, slight left-sided facial droop, intermittently answering yes and no questions, weak in the bilateral upper and lower extremities but nothing focal. Unable to focal arm drift or [id number]. MEDICAL DECISION MAKING: Patient is an 81-year-old male who presents ER for the boasting complaint. IV was established blood work was obtained. Labs show no significant leukocytosis. Mild anemia 12. INR unremarkable. BMP with a slightly elevated blood sugar 133. Magnesium low at 1.6. Trope negative. UA suggestive of UTI. He was given IV Rocephin. He was updated bedside. CT head was negative. Family was updated. He is not a candidate for tPA based on his presentation as he has no focal deficit does have severe dementia. Discussed with family as well as the hospitalist for further observation as I do favor symptoms are likely secondary to the UTI. Triage Nursing notes reviewed. Limited review of prior medical records performed Vital Signs: reviewed and remarkable for no significant abnormalities Differential diagnosis: Differential Diagnosis includes but is not limited to ischemic Stroke, hemorrhagic stroke, bells palsy, mass, neoplasm, migraine headache, seizure, subarachnoid hemorrhage, TIA, and transient global amnesia. ER treatment provided: See below Diagnostics interpreted by me: ECG: Sinus rhythm rate of 72 Normal axis Right bundle branch block T wave inversions in the septal leads QTC 420 Cardiac Monitoring: An order was placed for continuous cardiac monitoring. The monitor shows a rate of 78 with sinus rhythm. Laboratory studies: As stated above and show below. Imaging studies: CT head was negative Consultation(s): Discussed with hospitalist for further evaluation lower lobe Procedures: none Critical Care: None Past Med/Surg History Medical History (Updated 04/29/22 @ 15:50 by Gucci Smith DO) BPH (benign prostatic hyperplasia) CVA (cerebral vascular accident) Dementia Diabetes mellitus, type II Diverticulitis HLD (hyperlipidemia) Hypertension Surgical History History of appendectomy History of cholecystectomy Family History Other Dementia Stroke Social History Smoking Status: Never smoker Hx Alcohol Use: No Hx Substance Use: No Preferred Language: Northern Irish Communication Ability: Impaired Supervisor Claims Required: No Beliefs That Will Affect Care: None marital status: Current Living Situation: Senior Living How many Children do You have: 1 Feels Safe at Home: Yes Assistive Devices: Denture - Upper, Denture - Lower and Walker Allergies Allergies Allergy/AdvReac Type Severity Reaction Status Date / Time iodine Allergy Severe (FROM Verified 11/03/21 11:29 CONTRAST MEDIA)sob, sneezing, wheezing Home Meds Home Medications Medication Instructions Recorded Confirmed glipizide 10 mg tablet, extended 10 mg PO DAILY 09/06/21 04/29/22 release 24 hr linagliptin 5 mg tablet (Tradjenta) 5 mg PO DAILY 09/06/21 04/29/22 metformin 500 mg tablet,extended 1,000 mg PO BID 09/06/21 04/29/22 release 24 hr tamsulosin 0.4 mg capsule 0.4 mg PO DAILY 09/06/21 04/29/22 aspirin 81 mg tablet,delayed 81 mg PO DAILY 11/03/21 04/29/22 release (Kell Low Dose Aspirin) trazodone 50 mg tablet 25 mg PO HS PRN 11/03/21 04/29/22 risperidone 0.5 mg tablet 0.5 mg PO BID 04/29/22 04/29/22 Previous Rx's Medication Instructions Recorded atorvastatin 80 mg tablet 80 mg PO HS #30 tab 09/16/21 clopidogrel 75 mg tablet 75 mg PO QAM #10 tab 09/16/21 Results & Data (ED) Vital Signs Vital Signs - 24 hr 04/29/22 12:48 04/29/22 13:02 04/29/22 13:10 Temperature 36.5 C Temperature Source Oral Pulse Rate 76 73 75 Pulse Rate from SpO2 Sensor 74 75 Respiratory Rate 20 24 21 Blood Pressure 142/76 H 156/83 H Blood Pressure Mean 98 107 Pulse Oximetry 96 95 94 Oxygen Delivery Method Room Air Sepsis Recent Fever Within 48 Hours No Sepsis New/Unexplained Change in Mental Status Yes Sepsis Action Taken by Nursing No Action Required 04/29/22 13:20 04/29/22 13:30 04/29/22 13:40 Temperature Temperature Source Pulse Rate 82 74 Pulse Rate from SpO2 Sensor 79 74 Respiratory Rate 21 Blood Pressure 145/82 H Blood Pressure Mean 103 Pulse Oximetry 94 95 Oxygen Delivery Method Sepsis Recent Fever Within 48 Hours Sepsis New/Unexplained Change in Mental Status Sepsis Action Taken by Nursing 04/29/22 13:50 04/29/22 14:00 04/29/22 14:10 Temperature Temperature Source Pulse Rate 78 81 82 Pulse Rate from SpO2 Sensor 80 86 81 Respiratory Rate 21 23 Blood Pressure 122/85 Blood Pressure Mean 97 Pulse Oximetry 96 94 95 Oxygen Delivery Method Sepsis Recent Fever Within 48 Hours Sepsis New/Unexplained Change in Mental Status Sepsis Action Taken by Nursing 04/29/22 14:20 04/29/22 14:30 Temperature Temperature Source Pulse Rate 77 85 Pulse Rate from SpO2 Sensor 79 84 Respiratory Rate 21 24 Blood Pressure 110/72 Blood Pressure Mean 84 Pulse Oximetry 95 95 Oxygen Delivery Method Sepsis Recent Fever Within 48 Hours Sepsis New/Unexplained Change in Mental Status Sepsis Action Taken by Nursing Laboratory Data Result diagrams: 04/29/22 12:55 04/29/22 12:55 Lab Results 04/29/22 04/29/22 04/29/22 Range/Units 12:37 12:55 12:55 WBC 6.94 (4.8-10.8) K/uL RBC 3.83 L (4.7-6.1) M/uL Hgb 12.0 L (14.0-18.0) g/dL Hct 36.8 L (42-52) % MCV 96.1 (80-100) fL MCH 31.3 (25-34) pg MCHC 32.6 (32-36) g/dL RDW Std Deviation 45.1 (36.4-46.3) fL RDW Coeff of Divina 13.0 (11.5-14.5) % Plt Count 389 (130-400) K/uL MPV 9.2 (7.4-10.4) fL Immature Gran % (Auto) 0.3 % Neut % (Auto) 54.6 % Lymph % (Auto) 26.2 % [place] % (Auto) 16.6 % Eos % (Auto) 2.2 % Baso % (Auto) 0.1 % Neut # (Auto) 3.79 (1.4-6.5) K/uL Lymph # (Auto) 1.82 (1.2-3.4) K/uL [place] # (Auto) 1.15 H (0.11-0.59) K/uL Eos # (Auto) 0.15 (0-0.5) K/uL Baso # (Auto) 0.01 (0-0.2) K/uL Immature Gran # (Auto) 0.02 (0.00-0.02) K/uL PT 10.9 (9.0-12.0) Seconds INR 1.0 (0.9-1.1) APTT 24.1 (21.0-31.0) Seconds PTT Ratio 0.9 Sodium (136-145) mmol/L Potassium (3.5-5.1) mmol/L Chloride (98-107) mmol/L Carbon Dioxide (21-32) mmol/L Anion Gap (3-11) BUN (6-23) mg/dl Creatinine (0.6-1.4) mg/dl Est Cr Clr Drug Dosing ml/min Est GFR ( Amer) ml/min Est GFR (Non-Af Amer) ml/min BUN/Creatinine Ratio (10-20) Glucose (70-99(Fasting)) mg/dl POC Glucose 137 H (70-99) mg/dl Calcium (8.5-10.1) mg/dl Magnesium (1.7-2.4) mg/dl Total Bilirubin (0.2-1.0) mg/dl AST (13-39) U/L ALT (7-52) U/L Alkaline Phosphatase (34-104) U/L Troponin I High Sens (0-20) pg/ml Total Protein (6.0-8.3) gm/dl Albumin (3.4-5.0) gm/dl Globulin (2.5-4.0) gm/dl Albumin/Globulin Ratio (0.9-2) Urine Color Urine Appearance (Clear) Urine pH (4.5-7.5) Ur Specific [place] (1.000-1.030) Urine Protein (Negative) Urine Glucose (UA) (Negative) Urine Ketones (Negative) Urine Blood (Negative) Urine Nitrite (Negative) Urine Bilirubin (Negative) Urine Urobilinogen (Negative) Ur Leukocyte Esterase (Negative) Urine WBC (Auto) (0-5) /hpf Urine RBC (Auto) (0-4) /hpf U Hyaline Cast (Auto) (0-5) /lpf U Epithel Cells (Auto) (0-5) /lpf Urine Bacteria (Auto) (Negative) SARS-CoV-2, RNA, NAAT (NEGATIVE) 04/29/22 04/29/22 04/29/22 Range/Units 12:55 12:55 14:23 WBC (4.8-10.8) K/uL RBC (4.7-6.1) M/uL Hgb (14.0-18.0) g/dL Hct (42-52) % MCV (80-100) fL MCH (25-34) pg MCHC (32-36) g/dL RDW Std Deviation (36.4-46.3) fL RDW Coeff of Divina (11.5-14.5) % Plt Count (130-400) K/uL MPV (7.4-10.4) fL Immature Gran % (Auto) % Neut % (Auto) % Lymph % (Auto) % [place] % (Auto) % Eos % (Auto) % Baso % (Auto) % Neut # (Auto) (1.4-6.5) K/uL Lymph # (Auto) (1.2-3.4) K/uL [place] # (Auto) (0.11-0.59) K/uL Eos # (Auto) (0-0.5) K/uL Baso # (Auto) (0-0.2) K/uL Immature Gran # (Auto) (0.00-0.02) K/uL PT (9.0-12.0) Seconds INR (0.9-1.1) APTT (21.0-31.0) Seconds PTT Ratio Sodium 137 (136-145) mmol/L Potassium 4.0 (3.5-5.1) mmol/L Chloride 104 (98-107) mmol/L Carbon Dioxide 29 (21-32) mmol/L Anion Gap 4 (3-11) BUN 12 (6-23) mg/dl Creatinine 0.57 L (0.6-1.4) mg/dl Est Cr Clr Drug Dosing 105.4 ml/min Est GFR ( Amer) 110.8 ml/min Est GFR (Non-Af Amer) 95.6 ml/min BUN/Creatinine Ratio 21.1 H (10-20) Glucose 133 H (70-99(Fasting)) mg/dl POC Glucose (70-99) mg/dl Calcium 9.8 (8.5-10.1) mg/dl Magnesium 1.6 L (1.7-2.4) mg/dl Total Bilirubin 0.5 (0.2-1.0) mg/dl AST 11 L (13-39) U/L ALT 13 (7-52) U/L Alkaline Phosphatase 64 (34-104) U/L Troponin I High Sens 8.1 (0-20) pg/ml Total Protein 6.9 (6.0-8.3) gm/dl Albumin 3.8 (3.4-5.0) gm/dl Globulin 3.1 (2.5-4.0) gm/dl Albumin/Globulin Ratio 1.2 (0.9-2) Urine Color Yellow Urine Appearance Clear (Clear) Urine pH 5.5 (4.5-7.5) Ur Specific [place] 1.017 (1.000-1.030) Urine Protein Negative (Negative) Urine Glucose (UA) Negative (Negative) Urine Ketones Negative (Negative) Urine Blood 2+ H (Negative) Urine Nitrite Positive A (Negative) Urine Bilirubin Negative (Negative) Urine Urobilinogen Negative (Negative) Ur Leukocyte Esterase Trace H (Negative) Urine WBC (Auto) 1-5 (0-5) /hpf Urine RBC (Auto) 10-30 H (0-4) /hpf U Hyaline Cast (Auto) 1-5 (0-5) /lpf U Epithel Cells (Auto) 10-20 H (0-5) /lpf Urine Bacteria (Auto) 4+ H (Negative) SARS-CoV-2, RNA, NAAT NEGATIVE (NEGATIVE) Administered Medications Discontinued Medications Ceftriaxone Sodium (Rocephin) 1,000 mg in 50 mls @ 100 mls/hr IV NOW STA Stop: 04/29/22 14:25 Last Infusion: 04/29/22 15:39 Dose: 0 mls/hr Documented by: [id number] Admin: 04/29/22 14:28 Dose: 100 mls/hr Documented by: [id number] Imaging Data Radiologist's Impression: Chest X-Ray 04/29/22 12:39 XR chest 1V portable CLINICAL HISTORY: Stroke Like Symptoms TECHNIQUE: Single frontal radiograph of the chest was obtained. Comparison: Comparison is made to chest radiograph 11/03/2021 FINDINGS: No lines and tubes are seen. The cardiomediastinal silhouette is normal. The lungs are clear. No evidence of pleural effusion or pneumothorax. IMPRESSION: No acute chest disease. ACT 112: Negative or not required by law. Electronically signed by: Jayesh Carroll M.D. 04/29/2022 1:[address] 04/29/22 12:39 CT head/brain wo con CLINICAL HISTORY: Stroke Like Symptoms Technique: Contiguous axial CT images of the head were acquired from the base of the skull to the vertex without intravenous contrast administration. Images were viewed in brain, subdural and bone windows. Automated dose lowering techniques and/or adjustment according to patient size were utilized for this exam. Comparison: Comparison is made to CT head 11/03/2021 Findings: Areas of decreased attenuation are present in the periventricular and subcortica l white matter bilaterally consistent with small vessel ischemic disease. Generalized cerebral atrophy with commensurate enlargement of the ventricles, sulci, and cisterns is also present. There is no acute intracranial hemorrhage or evidence of acute territorial infarction. No shift of the midline structures, mass effect, or extra-axial abnormalities are shown. Atherosclerotic calcifications are present in the intracranial segments of the internal carotid arteries. Focal encephalomalacia in the right frontal lobe and left occipital lobe are seen. Imaged portions of the paranasal sinuses and mastoid air cells are clear. The orbits appear normal. There are no acute fractures of the calvaria or scalp swelling. Impression: No acute intracranial hemorrhage, no evidence of acute territorial infarction or other acute intracranial disease process. ACT 112: Negative or not required by law. Electronically signed by: Jayesh Carroll M.D. 04/29/2022 1:32 PM Discharge Plan Visit Data Chief Complaint: Hypoglycemia Stated Complaint: HYPOGLYCEMIA ED Provider: Gucci Smith Discharge Problem: Altered mental status, UTI (urinary tract infection), Hypomagnesemia Forms Stand Alone Forms: My [facility] [employer] Prescriptions Prescriptions: No Action risperidone 0.5 mg tablet 0.5 mg PO BID RF: 0 glipizide 10 mg Tablet Extended Release 24hr 10 mg PO DAILY RF: 0 metformin 500 mg Tablet Extended Release 24 Hr 1,000 mg PO BID RF: 0 Tradjenta 5 mg Tablet 5 mg PO DAILY RF: 0 tamsulosin 0.4 mg capsule 0.4 mg PO DAILY RF: 0 clopidogrel 75 mg Tablet 75 mg PO QAM Qty: 10 RF: 0 atorvastatin 80 mg tablet 80 mg PO HS Qty: 30 RF: 0 aspirin [Kell Low Dose Aspirin] 81 mg Tablet,Delayed Release (Dr/Ec) 81 mg PO DAILY RF: 0 trazodone 50 mg tablet 25 mg PO HS PRN (Reason: Insomnia) RF: 0 Referrals Referrals: Ulices Moore DO [Physician] - Discharge Problem: Altered mental status Qualifiers: Altered mental status type: unspecified Qualified Code(s): R41.82 - Altered mental status, unspecified UTI (urinary tract infection) Qualifiers: Urinary tract infection type: site unspecified Hematuria presence: with hematuria Qualified Code(s): N39.0 - Urinary tract infection, site not specified
--- NOTE | 2022-04-29 13:11 | XRay Report ---
XR chest 1V portable CLINICAL HISTORY: Stroke Like Symptoms TECHNIQUE: Single frontal radiograph of the chest was obtained. Comparison: Comparison is made to chest radiograph 11/03/2021 FINDINGS: No lines and tubes are seen. The cardiomediastinal silhouette is normal. The lungs are clear. No evid ence of pleural effusion or pneumothorax. IMPRESSION: No acute chest disease. ACT 112: Negative or not required by law. Electronically signed by: Jayesh Carroll M.D. 04/29/2022 1:10 PM
--- NOTE | 2022-04-29 13:34 | CT Scan Report ---
CT head/brain wo con CLINICAL HISTORY: Stroke Like Symptoms Technique: Contiguous axial CT images of the head were acquired from the base of the skull to the majo kathy without intravenous contrast administration. Images were viewed in brain, subdural and bone [facility] . Automated dose lowering techniques and/or adjustment according to patient size were utilized for this exam. Comparison: Comparison is made to CT head 11/03/2021 Findings: Areas of decreased attenuation are present in the periventricular and subcortical white matter bilate rally consistent with small vessel ischemic disease. Generalized cerebral atrophy with commensurate e nlargement of the ventricles, sulci, and cisterns is also present. There is no acute intracranial hem orrhage or evidence of acute territorial infarction. No shift of the midline structures, mass effect, or extra-axial abnormalities are shown. Atherosclerotic calcifications are present in the intracran ial segments of the internal carotid arteries. Focal encephalomalacia in the right frontal lobe and l eft occipital lobe are seen. Imaged portions of the paranasal sinuses and mastoid air cells are clear. The orbits appear normal. There are no acute fractures of the calvaria or scalp swelling. Impression: No acute intracranial hemorrhage, no evidence of acute territorial infarction or other acute intracra nial disease process. ACT 112: Negative or not required by law. Electronically signed by: Jayesh Carroll M.D. 04/29/2022 1:32 PM
[2022-04-29 13:42] LABS: Partial Thromboplastin Ratio 0.9; Partial Thromboplastin Time 24.1 Seconds (21.0-31.0); Prothrombin Time 10.9 Seconds (9.0-12.0)
[2022-04-29 13:43] LABS: Basophils # (auto) 0.01 K/uL (0-0.2); Basophils % (auto) 0.1 %; Eosinophils # (auto) 0.15 K/uL (0-0.5); Eosinophils % (auto) 2.2 %; Hematocrit (blood only) 36.8 % (42-52); Immature Granulocytes # (auto) 0.02 K/uL (0.00-0.02); Immature Granulocytes % (auto) 0.3 %; Lymphocytes # (auto) 1.82 K/uL (1.2-3.4); Lymphocytes % (auto) 26.2 %; Mean Corpuscular Hemoglobin 31.3 pg (25-34); Mean Corpuscular Hgb Conc 32.6 g/dL (32-36); Mean Corpuscular Volume 96.1 fL (80-100); Mean Platelet Volume 9.2 fL (7.4-10.4); Monocytes # (auto) 1.15 K/uL (0.11-0.59); Monocytes % (auto) 16.6 %; Neutrophils # (auto) 3.79 K/uL (1.4-6.5); Neutrophils % (auto) 54.6 %; Platelet Count 389 K/uL (130-400); RDW Standard Deviation 45.1 fL (36.4-46.3); Red Blood Count 3.83 M/uL (4.7-6.1); White Blood Count 6.94 K/uL (4.8-10.8)
[2022-04-29 13:47] LABS: Appearance Urine Clear (Clear); Bacteria Urine Automated 4+ (Negative); Bilirubin Urine Negative (Negative); Blood Urine 2+ (Negative); Color Urine Yellow; Glucose Urine UA Negative (Negative); Ketones Urine Negative (Negative); Leukocyte Esterase Urine Trace (Negative); Nitrite Urine Positive (Negative); Protein Urine Negative (Negative); Specific Gravity Urine 1.017 (1.000-1.030); Urobilinogen Urine Negative (Negative); pH Urine 5.5 (4.5-7.5)
[2022-04-29 13:53] LABS: Albumin Globulin Ratio 1.2 (0.9-2); Albumin Level 3.8 gm/dl (3.4-5.0); BUN Creatinine Ratio 21.1 (10-20); Bilirubin,Total 0.5 mg/dl (0.2-1.0); Calcium 9.8 mg/dl (8.5-10.1); Creatinine Clr Calc Pharmacy 105.4 ml/min; Est GFR (African American) 110.8 ml/min; Est GFR (Non-African American) 95.6 ml/min; Globulin 3.1 gm/dl (2.5-4.0); Magnesium 1.6 mg/dl (1.7-2.4); Total Protein 6.9 gm/dl (6.0-8.3)
[2022-04-29 13:55] LABS: Troponin I High Sensitivity 8.1 pg/ml (0-20)
[2022-04-29] MEDS ORDERED: cefTRIAXone SODIUM 1,000 MG/50 ML BAG IV STA (13:56)
--- NOTE | 2022-04-29 15:56 | History & Physical Report ---
Date of Service April 29, 2022 Assessment & Plan (1) Altered mental status: (2) UTI (urinary tract infection): [facility] Patient [facility] from [facility] for evaluation of confusion, lethargy, ? Facial droop Head CT negative Neurological exam unremarkable for focal deficit. Given that patient is on maximum medical therapy with DAPT and statin for hx of CVA, doubt that obtaining a brain MRI would be beneficial. Discussed with daughter who is in agreement with the plan, she states that her father once told her " I do not want to have another MRI". Likely metabolic encephalopathy due to UTI Would treat for UTI and monitor for improvement. Monitor on telemetry for A. fib Neurochecks IV ceftriaxone for UTI, follow urine culture If patient does not improve with treatment for UTI or develops focal neurological deficit, consider brain MRI (3) Hypoglycemia: Plan: When EMS arrived, patient's BSG was 50 and received D50 Monitor BSG (4) Hypomagnesemia: Plan: Mg +1.6 Replace, follow (5) Diabetes mellitus, type II: Plan: Hgb A1c 6.4 03/2022 Hold oral agents and utilize NovoLog per protocol while hospitalized (6) BPH (benign prostatic hyperplasia): Plan: Continue tamsulosin (7) DVT prophylaxis: Plan: SQ Lovenox History of Present Illness Chief Complaint: Altered mental status Primary Care Provider: [facility] 81-year-old male with PMH dementia, HTN, DM type II, history of CVA, BPH, and other problems to below who presents to the ED from [facility] for evaluation of altered mental status. Patient's daughter is the bedside who provides some history. History also obtained from ED documentation. She reports that when she visited with her father last evening she noted for him to be mildly confused, worse than baseline. This morning, patient was noted to be lethargic, confused, and did not want to eat -- all of which are unusual for him. There was also a possible left facial droop reported. When EMS arrived, patient's blood suagr was noted to be 50 and he received D50. No facial droop is currently noted. Patient's daughter states that he continues to be more lethargic than normal. He is generally weak throughout which daughter feels at the baseline. Further history unobtainable from the patient due to underlying dementia lethargy. In the ED, patient is hemodynamically stable. Head CT negative for acute findings. Labs unremarkable. UA suggestive of UTI. Patient was given IV ceftriaxone. Allergies Allergy/AdvReac Type Severity Reaction Status Date / Time iodine Allergy Severe (FROM Verified 11/03/21 11:29 CONTRAST MEDIA)sob, sneezing, wheezing Home Medications Medication Instructions Recorded Confirmed Type glipizide 10 mg tablet, extended 10 mg PO DAILY 09/06/21 04/29/22 History release 24 hr linagliptin 5 mg tablet (Tradjenta) 5 mg PO DAILY 09/06/21 04/29/22 History metformin 500 mg tablet,extended 1,000 mg PO BID 09/06/21 04/29/22 History release 24 hr tamsulosin 0.4 mg capsule 0.4 mg PO DAILY 09/06/21 04/29/22 History atorvastatin 80 mg tablet 80 mg PO HS #30 tab 09/16/21 04/29/22 Rx clopidogrel 75 mg tablet 75 mg PO QAM #10 tab 09/16/21 04/29/22 Rx aspirin 81 mg tablet,delayed 81 mg PO DAILY 11/03/21 04/29/22 History release (Kell Low Dose Aspirin) trazodone 50 mg tablet 25 mg PO HS PRN 11/03/21 04/29/22 History risperidone 0.5 mg tablet 0.5 mg PO BID 04/29/22 04/29/22 History Past Med/Surg History Medical History BPH (benign prostatic hyperplasia) CVA (cerebral vascular accident) Dementia Diabetes mellitus, type II Diverticulitis HLD (hyperlipidemia) Hypertension Surgical History History of appendectomy History of cholecystectomy Family History Other Dementia Stroke Social History Smoking Status: Never smoker Hx Alcohol Use: No Hx Substance Use: No Preferred Language: German Communication Ability: Impaired Senior Portfolio Manager Required: No Beliefs That Will Affect Care: None marital status: Current Living Situation: Shelter How many Children do You have: 1 Feels Safe at Home: Yes Assistive Devices: Denture - Upper, Denture - Lower and Walker Review of Systems Review of Systems: Unobtainable due to cognitive status and Unobtainable due to reduced consciousness Physical Exam Constitutional: WD/WN, vitals as above Eyes: PERRL, conjunctivae normal, anicteric sclerae ENMT: Ears: no external ear abnormality Nose: no external nose abnormality Mouth: + edentulous Respiratory: normal respiratory effort, lungs clear to auscultation Cardiovascular: Rate/Rhythm: regular rate and regular rhythm Vessels: normal peripheral pulses Extremities: no edema Gastrointestinal (Abdomen): normal bowel sounds, soft, nontender, no hepatosplenomegaly Musculoskeletal: Extremities: no cyanosis and no clubbing Generally weak throughout all extremities however equal, strength 3/5 Skin: no rashes, warm and dry Neurologic: PERRL, EOMI, accommodation nl, no face palsy, no dysarthria Psychiatric: Orientation: oriented to person and cooperative; + not alert (Lethargic but arouses easily to verbal stimuli), + not oriented to place and + not oriented to time Cognition: + recent memory not intact Results & Data Results & Data ([facility]) Vital Signs (Past 12 Hours) Vital Signs Temp Pulse Resp BP Pulse Ox 04/29/22 14:30 85 24 110/72 95 04/29/22 14:20 77 21 95 04/29/22 14:10 82 23 95 04/29/22 14:00 81 21 122/85 94 04/29/22 13:50 78 96 04/29/22 13:40 74 95 04/29/22 13:30 145/82 H 04/29/22 13:20 82 21 94 04/29/22 13:10 75 21 94 04/29/22 13:02 73 24 156/83 H 95 04/29/22 12:48 36.5 C 76 20 142/76 H 96 Laboratory Results Short CBC 04/29/22 Range/Units 12:55 WBC 6.94 (4.8-10.8) K/uL Hgb 12.0 L (14.0-18.0) g/dL Hct 36.8 L (42-52) % Plt Count 389 (130-400) K/uL BMP 04/29/22 12:55 Sodium 137 Potassium 4.0 Chloride 104 Carbon Dioxide 29 BUN 12 Creatinine 0.57 L Glucose 133 H Calcium 9.8 Liver Function 04/29/22 Range/Units 12:55 Total Bilirubin 0.5 (0.2-1.0) mg/dl AST 11 L (13-39) U/L ALT 13 (7-52) U/L Alkaline Phosphatase 64 (34-104) U/L Albumin 3.8 (3.4-5.0) gm/dl Urine 04/29/22 Range/Units 12:55 Urine Color Yellow Urine Appearance Clear (Clear) Urine pH 5.5 (4.5-7.5) Ur Specific [place] 1.017 (1.000-1.030) Urine Protein Negative (Negative) Urine Glucose (UA) Negative (Negative) Diagnostic Findings Chest X-Ray 04/29/22 12:39 XR chest 1V portable CLINICAL HISTORY: Stroke Like Symptoms TECHNIQUE: Single frontal radiograph of the chest was obtained. Comparison: Comparison is made to chest radiograph 11/03/2021 FINDINGS: No lines and tubes are seen. The cardiomediastinal silhouette is normal. The lungs are clear. No evidence of pleural effusion or pneumothorax. IMPRESSION: No acute chest disease. ACT 112: Negative or not required by law. Electronically signed by: Jayesh Carroll M.D. 04/29/2022 1:[address] 04/29/22 12:39 CT head/brain wo con CLINICAL HISTORY: Stroke Like Symptoms Technique: Contiguous axial CT images of the head were acquired from the base of the skull to the vertex without intravenous contrast administration. Images were viewed in brain, subdural and bone windows. Automated dose lowering techniques and/or adjustment according to patient size were utilized for this exam. Comparison: Comparison is made to CT head 11/03/2021 Findings: Areas of decreased attenuation are present in the periventricular and subcortical white matter bilaterally consistent with small vessel ischemic disease. Generalized cerebral atrophy with commensurate enlargement of the ventricles, sulci, and cisterns is also present. There is no acute intracranial hemorrhage or evidence of acute territorial infarction. No shift of the midline structures, mass effect, or extra-axial abnormalities are shown. Ath erosclerotic calcifications are present in the intracranial segments of the internal carotid arteries. Focal encephalomalacia in the right frontal lobe and left occipital lobe are seen. Imaged portions of the paranasal sinuses and mastoid air cells are clear. The orbits appear normal. There are no acute fractures of the calvaria or scalp swelling. Impression: No acute intracranial hemorrhage, no evidence of acute territorial infarction or other acute intracranial disease process. ACT 112: Negative or not required by law. Electronically signed by: Jayesh Carroll M.D. 04/29/2022 1:32 PM Code Status & VTE Plan Code Status Patient is a DNR as per my discussion with patient's daughter, Elyse, who is the bedside. VTE Prophylaxis Plan VTE Prophylaxis will be ordered: Yes Supervising Physician Co-Signing Physician Notes Pt was seen and examined. Agreed with [place] WORKMAN exam, assessment and plan . 81-year-old male with PMH dementia, HTN, DM type II, history of CVA, BPH presents to the ED from [facility] for evaluation of altered mental status. This morning pt was found to be lethargy, confused and possible left facial droop as per daughter. When EMS arrived, patient's blood suagr was noted to be 50 and he received D50. UA on admission suggested UTI. CT head showed no acute intracranial abnormality. Received IV ceftriaxone in the ER. Will follow urine cx. Pt does not want to proceed with Brain MRI. if develop any focal neuro deficit, will repeat the CT head in 24 to 48hr. Continue monitor closely. MD Chace (1) Altered mental status Altered mental status type: unspecified Qualified Code(s): R41.82 - Altered mental status, unspecified
[2022-04-29] MEDS ORDERED: MAGNESIUM SULFATE / D5W 1 GM/100 ML BAG IV ONE (16:00)
[2022-04-29] MEDS ORDERED: ACETAMINOPHEN 325 MG TAB PO PRN (16:12)
[2022-04-29] MEDS ORDERED: cefTRIAXone SODIUM 1,000 MG in DEXTROSE 5% 50 ML IV SCH (16:12)
[2022-04-29] MEDS ORDERED: DEXTROSE 50% 50 ML SYRINGE IV PRN (16:12)
[2022-04-29] MEDS ORDERED: GLUCOSE 40% GEL 15 GM TUBE PO PRN (16:12)
[2022-04-29] MEDS ORDERED: GLUCAGON FOR INJ 1 MG VIAL SQ PRN (16:12)
[2022-04-29] MEDS ORDERED: GLUCOSE 10 TABS/TUBE PO PRN (16:12)
[2022-04-29] MEDS ORDERED: CARBOHYDRATES FOR HYPOGLYCEMIA PO PRN (16:12)
[2022-04-29] MEDS: INSULIN ASPART PER UNIT SC SCH ×2 (17:33→22:53)
--- NOTE | 2022-04-29 19:15 | Electrocardiogram Report ---
Test Reason : Blood Pressure : / mmHG Vent. Rate : 072 BPM Atrial Rate : 072 BPM P-R Int : 278 ms QRS Dur : 130 ms QT Int : 384 ms P-R-T Axes : 000 051 017 degrees QTc Int : 420 ms Sinus rhythm with 1st degree A-V block Right bundle branch block Abnormal ECG When compared with ECG of 03-NOV-2021 09:46, No significant change was found Confirmed by Esdras Reyes ([id number]) on 04/29/2022 7:14:54 PM Referred By: Confirmed By:Cuate Reyes
[2022-04-29] MEDS: ENOXAPARIN INJ 40 MG/0.4 ML SYR SQ SCH (20:01)
[2022-04-29] MEDS: risperiDONE 0.5 MG TABLET PO SCH (22:54)
[2022-04-29] MEDS: ATORVASTATIN 40 MG TAB PO SCH (22:55)
[2022-04-30 05:56] LABS: Hematocrit (blood only) 35.4 % (42-52); Hemoglobin 11.8 g/dL (14.0-18.0); Mean Corpuscular Hgb Conc 33.3 g/dL (32-36); Mean Corpuscular Volume 95.9 fL (80-100); Mean Platelet Volume 9.2 fL (7.4-10.4); Platelet Count 353 K/uL (130-400); RDW Coefficient of Variation 12.8 % (11.5-14.5); RDW Standard Deviation 45.1 fL (36.4-46.3); Red Blood Count 3.69 M/uL (4.7-6.1); White Blood Count 8.38 K/uL (4.8-10.8)
[2022-04-30 06:12] LABS: BUN Creatinine Ratio 21.3 (10-20); Calcium 9.8 mg/dl (8.5-10.1); Creatinine Clr Calc Pharmacy 90.3 ml/min; Est GFR (African American) 107.8 ml/min; Magnesium 1.7 mg/dl (1.7-2.4); Potassium 4.1 mmol/L (3.5-5.1)
[2022-04-30] MEDS: cefTRIAXone SODIUM 2,000 MG in DEXTROSE 5% 50 ML IV SCH (07:53)
[2022-04-30] MEDS: CLOPIDOGREL BISULFATE 75 MG TAB PO SCH (07:53)
[2022-04-30] MEDS: TAMSULOSIN HCL 0.4 MG CAP PO SCH (07:53)
[2022-04-30] MEDS: ASPIRIN 81 MG ECTAB PO SCH (07:53)
[2022-04-30] MEDS: INSULIN ASPART PER UNIT SC SCH ×4 (08:29→21:40)
[2022-04-30] MEDS: risperiDONE 0.5 MG TABLET PO SCH ×2 (08:42→21:40)
[2022-04-30] MEDS ORDERED: MAGNESIUM SULFATE / D5W 1 GM/100 ML BAG IV ONE (12:28)
--- NOTE | 2022-04-30 12:30 | Hospitalist Progress Note ---
Date of Service April 30, 2022 Assessment & Plan (1) Altered mental status: (2) UTI (urinary tract infection): Plan: Admit to [facility] telemetry Patient presenting from [facility] for evaluation of confusion, lethargy, ? Facial droop Head CT negative Neurological exam unremarkable for focal deficit. Given that patient is on maximum medical therapy with DAPT and statin for hx of CVA, doubt that obtaining a brain MRI would be beneficial. Discussed with daughter who is in agreement with the plan, she states that her father once told her " I do not want to have another MRI". Likely metabolic encephalopathy due to UTI Would treat for UTI and monitor for improvement. Monitor on telemetry for A. fib Neurochecks IV ceftriaxone for UTI, follow urine culture If patient does not improve with treatment for UTI or develops focal neurological deficit, consider brain MRI (3) Hypoglycemia: Plan: When EMS arrived, patient's BSG was 50 and received D50 Monitor BSG (4) Hypomagnesemia: Plan: Mg +1.6 Replace, follow (5) Diabetes mellitus, type II: Plan: Hgb A1c 6.4 03/2022 Hold oral agents and utilize NovoLog per protocol while hospitalized (6) BPH (benign prostatic hyperplasia): Plan: Continue tamsulosin (7) DVT prophylaxis: Plan: SQ Lovenox Admission and Anticipated Discharge Date Admission Date: April 29, 2022 Subjective Patient seen in follow-up of altered mental status, UTI Results & Data Results & Data ([facility]) Vital Signs (Past 12 Hours) Vital Signs Temp Pulse Resp BP BP Pulse Ox 04/30/22 10:41 36.8 C 83 20 170/89 H 169/93 H 92 04/30/22 07:00 36.9 C 88 20 165/83 H 91 04/30/22 03:35 37.1 C 88 20 146/85 H 93 Laboratory Results 04/30/22 04/30/22 04/30/22 Range/Units 11:44 07:41 05:36 WBC (4.8-10.8) K/uL RBC (4.7-6.1) M/uL Hgb (14.0-18.0) g/dL Hct (42-52) % MCV (80-100) fL MCH (25-34) pg MCHC (32-36) g/dL RDW Std Deviation (36.4-46.3) fL RDW Coeff of Divina (11.5-14.5) % Plt Count (130-400) K/uL MPV (7.4-10.4) fL Immature Gran % (Auto) % Neut % (Auto) % Lymph % (Auto) % [place] % (Auto) % Eos % (Auto) % Baso % (Auto) % Neut # (Auto) (1.4-6.5) K/uL Lymph # (Auto) (1.2-3.4) K/uL [place] # (Auto) (0.11-0.59) K/uL Eos # (Auto) (0-0.5) K/uL Baso # (Auto) (0-0.2) K/uL Immature Gran # (Auto) (0.00-0.02) K/uL PT (9.0-12.0) Seconds INR (0.9-1.1) APTT (21.0-31.0) Seconds PTT Ratio Sodium 136 (136-145) mmol/L Potassium 4.1 (3.5-5.1) mmol/L Chloride 104 (98-107) mmol/L Carbon Dioxide 27 (21-32) mmol/L Anion Gap 5 (3-11) BUN 13 (6-23) mg/dl Creatinine 0.61 (0.6-1.4) mg/dl Est Cr Clr Drug Dosing 90.3 ml/min Est GFR ( Amer) 107.8 ml/min Est GFR (Non-Af Amer) 93.0 ml/min BUN/Creatinine Ratio 21.3 H (10-20) Glucose 112 H (70-99(Fasting)) mg/dl POC Glucose 143 H 129 H (70-99) mg/dl Calcium 9.8 (8.5-10.1) mg/dl Magnesium 1.7 (1.7-2.4) mg/dl Total Bilirubin (0.2-1.0) mg/dl AST (13-39) U/L ALT (7-52) U/L Alkaline Phosphatase (34-104) U/L Troponin I High Sens (0-20) pg/ml Total Protein (6.0-8.3) gm/dl Albumin (3.4-5.0) gm/dl Globulin (2.5-4.0) gm/dl Albumin/Globulin Ratio (0.9-2) Urine Color Urine Appearance (Clear) Urine pH (4.5-7.5) Ur Specific [place] (1.000-1.030) Urine Protein (Negative) Urine Glucose (UA) (Negative) Urine Ketones (Negative) Urine Blood (Negative) Urine Nitrite (Negative) Urine Bilirubin (Negative) Urine Urobilinogen (Negative) Ur Leukocyte Esterase (Negative) Urine WBC (Auto) (0-5) /hpf Urine RBC (Auto) (0-4) /hpf U Hyaline Cast (Auto) (0-5) /lpf U Epithel Cells (Auto) (0-5) /lpf Urine Bacteria (Auto) (Negative) SARS-CoV-2, RNA, NAAT (NEGATIVE) 04/30/22 04/29/22 04/29/22 Range/Units 05:36 19:58 17:29 WBC 8.38 (4.8-10.8) K/uL RBC 3.69 L (4.7-6.1) M/uL Hgb 11.8 L (14.0-18.0) g/dL Hct 35.4 L (42-52) % MCV 95.9 (80-100) fL MCH 32.0 (25-34) pg MCHC 33.3 (32-36) g/dL RDW Std Deviation 45.1 (36.4-46.3) fL RDW Coeff of Divina 12.8 (11.5-14.5) % Plt Count 353 (130-400) K/uL MPV 9.2 (7.4-10.4) fL Immature Gran % (Auto) % Neut % (Auto) % Lymph % (Auto) % [place] % (Auto) % Eos % (Auto) % Baso % (Auto) % Neut # (Auto) (1.4-6.5) K/uL Lymph # (Auto) (1.2-3.4) K/uL [place] # (Auto) (0.11-0.59) K/uL Eos # (Auto) (0-0.5) K/uL Baso # (Auto) (0-0.2) K/uL Immature Gran # (Auto) (0.00-0.02) K/uL PT (9.0-12.0) Seconds INR (0.9-1.1) APTT (21.0-31.0) Seconds PTT Ratio Sodium (136-145) mmol/L Potassium (3.5-5.1) mmol/L Chloride (98-107) mmol/L Carbon Dioxide (21-32) mmol/L Anion Gap (3-11) BUN (6-23) mg/dl Creatinine (0.6-1.4) mg/dl Est Cr Clr Drug Dosing ml/min Est GFR ( Amer) ml/min Est GFR (Non-Af Amer) ml/min BUN/Creatinine Ratio (10-20) Glucose (70-99(Fasting)) mg/dl POC Glucose 123 H 98 (70-99) mg/dl Calcium (8.5-10.1) mg/dl Magnesium (1.7-2.4) mg/dl Total Bilirubin (0.2-1.0) mg/dl AST (13-39) U/L ALT (7-52) U/L Alkaline Phosphatase (34-104) U/L Troponin I High Sens (0-20) pg/ml Total Protein (6.0-8.3) gm/dl Albumin (3.4-5.0) gm/dl Globulin (2.5-4.0) gm/dl Albumin/Globulin Ratio (0.9-2) Urine Color Urine Appearance (Clear) Urine pH (4.5-7.5) Ur Specific [place] (1.000-1.030) Urine Protein (Negative) Urine Glucose (UA) (Negative) Urine Ketones (Negative) Urine Blood (Negative) Urine Nitrite (Negative) Urine Bilirubin (Negative) Urine Urobilinogen (Negative) Ur Leukocyte Esterase (Negative) Urine WBC (Auto) (0-5) /hpf Urine RBC (Auto) (0-4) /hpf U Hyaline Cast (Auto) (0-5) /lpf U Epithel Cells (Auto) (0-5) /lpf Urine Bacteria (Auto) (Negative) SARS-CoV-2, RNA, NAAT (NEGATIVE) 04/29/22 04/29/22 04/29/22 Range/Units 14:23 12:55 12:55 WBC (4.8-10.8) K/uL RBC (4.7-6.1) M/uL Hgb (14.0-18.0) g/dL Hct (42-52) % MCV (80-100) fL MCH (25-34) pg MCHC (32-36) g/dL RDW Std Deviation (36.4-46.3) fL RDW Coeff of Divina (11.5-14.5) % Plt Count (130-400) K/uL MPV (7.4-10.4) fL Immature Gran % (Auto) % Neut % (Auto) % Lymph % (Auto) % [place] % (Auto) % Eos % (Auto) % Baso % (Auto) % Neut # (Auto) (1.4-6.5) K/uL Lymph # (Auto) (1.2-3.4) K/uL [place] # (Auto) (0.11-0.59) K/uL Eos # (Auto) (0-0.5) K/uL Baso # (Auto) (0-0.2) K/uL Immature Gran # (Auto) (0.00-0.02) K/uL PT (9.0-12.0) Seconds INR (0.9-1.1) APTT (21.0-31.0) Seconds PTT Ratio Sodium 137 (136-145) mmol/L Potassium 4.0 (3.5-5.1) mmol/L Chloride 104 (98-107) mmol/L Carbon Dioxide 29 (21-32) mmol/L Anion Gap 4 (3-11) BUN 12 (6-23) mg/dl Creatinine 0.57 L (0.6-1.4) mg/dl Est Cr Clr Drug Dosing 105.4 ml/min Est GFR ( Amer) 110.8 ml/min Est GFR (Non-Af Amer) 95.6 ml/min BUN/Creatinine Ratio 21.1 H (10-20) Glucose 133 H (70-99(Fasting)) mg/dl POC Glucose (70-99) mg/dl Calcium 9.8 (8.5-10.1) mg/dl Magnesium 1.6 L (1.7-2.4) mg/dl Total Bilirubin 0.5 (0.2-1.0) mg/dl AST 11 L (13-39) U/L ALT 13 (7-52) U/L Alkaline Phosphatase 64 (34-104) U/L Troponin I High Sens 8.1 (0-20) pg/ml Total Protein 6.9 (6.0-8.3) gm/dl Albumin 3.8 (3.4-5.0) gm/dl Globulin 3.1 (2.5-4.0) gm/dl Albumin/Globulin Ratio 1.2 (0.9-2) Urine Color Yellow Urine Appearance Clear (Clear) Urine pH 5.5 (4.5-7.5) Ur Specific [place] 1.017 (1.000-1.030) Urine Protein Negative (Negative) Urine Glucose (UA) Negative (Negative) Urine Ketones Negative (Negative) Urine Blood 2+ H (Negative) Urine Nitrite Positive A (Negative) Urine Bilirubin Negative (Negative) Urine Urobilinogen Negative (Negative) Ur Leukocyte Esterase Trace H (Negative) Urine WBC (Auto) 1-5 (0-5) /hpf Urine RBC (Auto) 10-30 H (0-4) /hpf U Hyaline Cast (Auto) 1-5 (0-5) /lpf U Epithel Cells (Auto) 10-20 H (0-5) /lpf Urine Bacteria (Auto) 4+ H (Negative) SARS-CoV-2, RNA, NAAT NEGATIVE (NEGATIVE) 04/29/22 04/29/22 04/29/22 Range/Units 12:55 12:55 12:37 WBC 6.94 (4.8-10.8) K/uL RBC 3.83 L (4.7-6.1) M/uL Hgb 12.0 L (14.0-18.0) g/dL Hct 36.8 L (42-52) % MCV 96.1 (80-100) fL MCH 31.3 (25-34) pg MCHC 32.6 (32-36) g/dL RDW Std Deviation 45.1 (36.4-46.3) fL RDW Coeff of Divina 13.0 (11.5-14.5) % Plt Count 389 (130-400) K/uL MPV 9.2 (7.4-10.4) fL Immature Gran % (Auto) 0.3 % Neut % (Auto) 54.6 % Lymph % (Auto) 26.2 % [place] % (Auto) 16.6 % Eos % (Auto) 2.2 % Baso % (Auto) 0.1 % Neut # (Auto) 3.79 (1.4-6.5) K/uL Lymph # (Auto) 1.82 (1.2-3.4) K/uL [place] # (Auto) 1.15 H (0.11-0.59) K/uL Eos # (Auto) 0.15 (0-0.5) K/uL Baso # (Auto) 0.01 (0-0.2) K/uL Immature Gran # (Auto) 0.02 (0.00-0.02) K/uL PT 10.9 (9.0-12.0) Seconds INR 1.0 (0.9-1.1) APTT 24.1 (21.0-31.0) Seconds PTT Ratio 0.9 Sodium (136-145) mmol/L Potassium (3.5-5.1) mmol/L Chloride (98-107) mmol/L Carbon Dioxide (21-32) mmol/L Anion Gap (3-11) BUN (6-23) mg/dl Creatinine (0.6-1.4) mg/dl Est Cr Clr Drug Dosing ml/min Est GFR ( Amer) ml/min Est GFR (Non-Af Amer) ml/min BUN/Creatinine Ratio (10-20) Glucose (70-99(Fasting)) mg/dl POC Glucose 137 H (70-99) mg/dl Calcium (8.5-10.1) mg/dl Magnesium (1.7-2.4) mg/dl Total Bilirubin (0.2-1.0) mg/dl AST (13-39) U/L ALT (7-52) U/L Alkaline Phosphatase (34-104) U/L Troponin I High Sens (0-20) pg/ml Total Protein (6.0-8.3) gm/dl Albumin (3.4-5.0) gm/dl Globulin (2.5-4.0) gm/dl Albumin/Globulin Ratio (0.9-2) Urine Color Urine Appearance (Clear) Urine pH (4.5-7.5) Ur Specific [place] (1.000-1.030) Urine Protein (Negative) Urine Glucose (UA) (Negative) Urine Ketones (Negative) Urine Blood (Negative) Urine Nitrite (Negative) Urine Bilirubin (Negative) Urine Urobilinogen (Negative) Ur Leukocyte Esterase (Negative) Urine WBC (Auto) (0-5) /hpf Urine RBC (Auto) (0-4) /hpf U Hyaline Cast (Auto) (0-5) /lpf U Epithel Cells (Auto) (0-5) /lpf Urine Bacteria (Auto) (Negative) SARS-CoV-2, RNA, NAAT (NEGATIVE) Medications Administered Current Inpatient Medications Acetaminophen (Acetaminophen 325 Mg Tab) 650 mg PO Q4H PRN PRN Reason: pain/fever Stop: 05/29/22 16:11 Aspirin (Aspirin 81 Mg Ectab) 81 mg PO DAILY DAQUAN Stop: 05/30/22 08:59 Last Admin: 04/30/22 07:53 Dose: 81 mg Documented by: Atorvastatin Calcium (Atorvastatin 40 Mg Tab) 80 mg PO HS DAQUAN Stop: 05/29/22 20:59 Last Admin: 04/29/22 22:55 Dose: 80 mg Documented by: Clopidogrel Bisulfate (Clopidogrel Bisulfate 75 Mg Tab) 75 mg PO QAM DAQUAN Stop: 05/30/22 08:59 Last Admin: 04/30/22 07:53 Dose: 75 mg Documented by: Dextrose (Dextrose 50% 50 Ml Syringe) 25 - 50 ml IV UD PRN; Protocol PRN Reason: Hypoglycemia Protocol Stop: 05/29/22 16:11 Enoxaparin Sodium (Enoxaparin Inj 40 Mg/0.4 Ml Syr) 40 mg SQ Q24H DAQUAN Stop: 05/29/22 16:11 Last Admin: 04/29/22 20:01 Dose: 40 mg Documented by: Glucagon (Glucagon For Inj 1 Mg Vial) 1 mg SQ UD PRN; Protocol PRN Reason: Hypoglycemia Protocol Stop: 05/29/22 16:11 Glucose (Glucose 10 Tabs/Tube) 4 - 8 tabs PO UD PRN; Protocol PRN Reason: Hypoglycemia Protocol Stop: 05/29/22 16:11 Glucose (Glucose 40% Gel 15 Gm Tube) 15 - 30 gm PO UD PRN; Protocol PRN Reason: Hypoglycemia Protocol Stop: 05/29/22 16:11 Ceftriaxone Sodium 2,000 mg/ (Dextrose) 70 mls @ 140 mls/hr IV QAM DAQUAN; Protocol Stop: 05/10/22 08:59 Last Infusion: 04/30/22 08:26 Dose: Infused Documented by: Magnesium Sulfate/Dextrose (Magnesium Sulfate / D5w) 1 gm in 100 mls @ 50 mls/hr IV ONE ONE Stop: 04/30/22 14:27 Insulin Aspart (Insulin Aspart Per Unit) 0 units SC ACHS DAQUAN Stop: 05/29/22 16:29 Last Admin: 04/30/22 12:24 Dose: 1 units Documented by: Miscellaneous (Carbohydrates For Hypoglycemia ) 15 - 30 gm PO UD PRN PRN Reason: Hypoglycemia Protocol Stop: 05/29/22 16:11 Risperidone (Risperidone 0.5 Mg Tablet) 0.5 mg PO BID DAUQAN Stop: 05/29/22 20:59 Last Admin: 04/30/22 08:42 Dose: 0.5 mg Documented by: Tamsulosin HCl (Tamsulosin Hcl 0.4 Mg Cap) 0.4 mg PO DAILY DAQUAN Stop: 05/30/22 08:59 Last Admin: 04/30/22 07:53 Dose: 0.4 mg Documented by: (1) Altered mental status Altered mental status type: unspecified Qualified Code(s): R41.82 - Altered mental status, unspecified
[2022-04-30] MEDS: ENOXAPARIN INJ 40 MG/0.4 ML SYR SQ SCH (16:22)
[2022-04-30] MEDS: ATORVASTATIN 40 MG TAB PO SCH (21:39)
[2022-05-01] MEDS: INSULIN ASPART PER UNIT SC SCH ×4 (09:07→20:33)
[2022-05-01] MEDS: TAMSULOSIN HCL 0.4 MG CAP PO SCH (09:15)
[2022-05-01] MEDS: ASPIRIN 81 MG ECTAB PO SCH (09:15)
[2022-05-01] MEDS: CLOPIDOGREL BISULFATE 75 MG TAB PO SCH (09:16)
[2022-05-01] MEDS: risperiDONE 0.5 MG TABLET PO SCH ×2 (09:16→20:33)
[2022-05-01] MEDS: cefTRIAXone SODIUM 2,000 MG in DEXTROSE 5% 50 ML IV SCH (09:29)
--- NOTE | 2022-05-01 13:53 | Hospitalist Progress Note ---
Date of Service May 01, 2022 Assessment & Plan (1) Altered mental status: Plan: Spoke to his daughter today about his baseline- improving but still not fully back to baseline- intermittently lethargic per daughter (2) UTI (urinary tract infection): Plan: Urine clx with Ecoli, pansensitive, On rocephin- will change to vantin or bactrim at discharge. (3) Hypoglycemia: Plan: When EMS arrived, patient's BSG was 50 and received D50 with resolution. Currently BG controlled with no hypoglycemia- will not be aggressive. On SSI prn (4) Hypomagnesemia: Plan: recheck in am (5) Diabetes mellitus, type II: Plan: Hgb A1c 6.4 03/2022 On SSI, BG controlled- will not be aggressive with BG control (6) BPH (benign prostatic hyperplasia): Plan: Continue tamsulosin (7) DVT prophylaxis: Plan: SQ Lovenox Plan: Dispo- PT recommended SNF. CM following Updated daughter over the phone Admission and Anticipated Discharge Date Admission Date: April 29, 2022 Subjective He was awake alert oriented to self and speaking minimally and would go back to sleep during conversation. Denies any pain. Physical Exam Physical Exam: General: Sitting comfortably in bed eating breakfast but dozing in between, not in distress, on room air HEENT: EOMI, DINESH, MMM Chest: Clear breath sounds bilaterally, no wheezes or crackles CVS: Regular rate and rhythm, normal heart sounds, no murmur Abdomen: Soft, non tender, not distended, normal bowel sounds Neuro: Awake, alert, oriented to self, speaking minimally Extremities: No edema Results & Data Results & Data ([facility]) Vital Signs (Past 12 Hours) Vital Signs Temp Pulse Pulse Resp BP Pulse Ox 05/01/22 10:56 36.4 C L 105 H 20 107/65 92 05/01/22 07:17 78 05/01/22 07:05 36.5 C 80 20 152/93 H 92 05/01/22 03:00 36.8 C 102 H 20 156/91 H 92 Medications Administered Current Inpatient Medications Acetaminophen (Acetaminophen 325 Mg Tab) 650 mg PO Q4H PRN PRN Reason: pain/fever Stop: 05/29/22 16:11 Aspirin (Aspirin 81 Mg Ectab) 81 mg PO DAILY DAQUAN Stop: 05/30/22 08:59 Last Admin: 05/01/22 09:15 Dose: 81 mg Documented by: Atorvastatin Calcium (Atorvastatin 40 Mg Tab) 80 mg PO HS [facility] Stop: 05/29/22 20:59 Last Admin: 04/30/22 21:39 Dose: 80 mg Documented by: Clopidogrel Bisulfate (Clopidogrel Bisulfate 75 Mg Tab) 75 mg PO QAM DAQUAN Stop: 05/30/22 08:59 Last Admin: 05/01/22 09:16 Dose: 75 mg Documented by: Dextrose (Dextrose 50% 50 Ml Syringe) 25 - 50 ml IV UD PRN; Protocol PRN Reason: Hypoglycemia Protocol Stop: 05/29/22 16:11 Enoxaparin Sodium (Enoxaparin Inj 40 Mg/0.4 Ml Syr) 40 mg SQ Q24H DAQUAN Stop: 05/29/22 16:11 Last Admin: 04/30/22 16:22 Dose: 40 mg Documented by: Glucagon (Glucagon For Inj 1 Mg Vial) 1 mg SQ UD PRN; Protocol PRN Reason: Hypoglycemia Protocol Stop: 05/29/22 16:11 Glucose (Glucose 10 Tabs/Tube) 4 - 8 tabs PO UD PRN; Protocol PRN Reason: Hypoglycemia Protocol Stop: 05/29/22 16:11 Glucose (Glucose 40% Gel 15 Gm Tube) 15 - 30 gm PO UD PRN; Protocol PRN Reason: Hypoglycemia Protocol Stop: 05/29/22 16:11 Ceftriaxone Sodium 2,000 mg/ (Dextrose) 70 mls @ 140 mls/hr IV QAM DAQUAN; Protocol Stop: 05/10/22 08:59 Last Infusion: 05/01/22 10:06 Dose: Infused Documented by: Insulin Aspart (Insulin Aspart Per Unit) 0 units SC ACHS DAQUAN Stop: 05/29/22 16:29 Last Admin: 05/01/22 13:20 Dose: 3 units Documented by: Miscellaneous (Carbohydrates For Hypoglycemia ) 15 - 30 gm PO UD PRN PRN Reason: Hypoglycemia Protocol Stop: 05/29/22 16:11 Risperidone (Risperidone 0.5 Mg Tablet) 0.5 mg PO BID [facility] Stop: 05/29/22 20:59 Last Admin: 05/01/22 09:16 Dose: 0.5 mg Documented by: Tamsulosin HCl (Tamsulosin Hcl 0.4 Mg Cap) 0.4 mg PO DAILY [facility] Stop: 05/30/22 08:59 Last Admin: 05/01/22 09:15 Dose: 0.4 mg Documented by: (1) Altered mental status Altered mental status type: unspecified Qualified Code(s): R41.82 - Altered mental status, unspecified
[2022-05-01] MEDS: ENOXAPARIN INJ 40 MG/0.4 ML SYR SQ SCH (17:43)
[2022-05-01] MEDS: ATORVASTATIN 40 MG TAB PO SCH (20:33)
[2022-05-02 05:43] LABS: Hematocrit (blood only) 37.1 % (42-52); Hemoglobin 12.4 g/dL (14.0-18.0); Mean Corpuscular Hemoglobin 31.6 pg (25-34); Mean Corpuscular Hgb Conc 33.4 g/dL (32-36); Mean Corpuscular Volume 94.6 fL (80-100); Mean Platelet Volume 9.2 fL (7.4-10.4); Platelet Count 369 K/uL (130-400); RDW Coefficient of Variation 12.9 % (11.5-14.5); RDW Standard Deviation 44.3 fL (36.4-46.3); Red Blood Count 3.92 M/uL (4.7-6.1); White Blood Count 7.76 K/uL (4.8-10.8)
[2022-05-02 06:08] LABS: BUN Creatinine Ratio 27.4 (10-20); Calcium 9.8 mg/dl (8.5-10.1); Creatinine Clr Calc Pharmacy 88.9 ml/min; Est GFR (African American) 107.1 ml/min; Est GFR (Non-African American) 92.4 ml/min; Magnesium 1.9 mg/dl (1.7-2.4); Phosphorus 3.2 mg/dl (2.5-4.9)
[2022-05-02] MEDS: ASPIRIN 81 MG ECTAB PO SCH (08:43)
[2022-05-02] MEDS: INSULIN ASPART PER UNIT SC SCH ×2 (08:43→12:04)
[2022-05-02] MEDS: CLOPIDOGREL BISULFATE 75 MG TAB PO SCH (08:44)
[2022-05-02] MEDS: TAMSULOSIN HCL 0.4 MG CAP PO SCH (08:46)
[2022-05-02] MEDS: risperiDONE 0.5 MG TABLET PO SCH (08:46)
[2022-05-02] MEDS: cefTRIAXone SODIUM 2,000 MG in DEXTROSE 5% 50 ML IV SCH (08:54)
--- NOTE | 2022-05-02 14:18 | Discharge Summary ---
Date of Service May 02, 2022 Admission HPI Per Admitting Provider 81-year-old male with PMH dementia, HTN, DM type II, history of CVA, BPH, and other problems to below who presents to the ED from [facility] for evaluation of altered mental status. Patient's daughter is the bedside who provides some history. History also obtained from ED documentation. She reports that when she visited with her father last evening she noted for him to be mildly confused, worse than baseline. This morning, patient was noted to be lethargic, confused, and did not want to eat -- all of which are unusual for him. There was also a possible left facial droop reported. When EMS arrived, patient's blood suagr was noted to be 50 and he received D50. No facial droop is currently noted. Patient's daughter states that he continues to be more lethargic than normal. He is generally weak throughout which daughter feels at the baseline. Further history unobtainable from the patient due to underlying dementia lethargy. In the ED, patient is hemodynamically stable. Head CT negative for acute findings. Labs unremarkable. UA suggestive of UTI. Patient was given IV ceftriaxone. Admission Exam Per Admitting Provider Constitutional: WD/WN, vitals as above Eyes: PERRL, conjunctivae normal, anicteric sclerae ENMT: Ears: no external ear abnormality Nose: no external nose abnormality Mouth: + edentulous Respiratory: normal respiratory effort, lungs clear to auscultation Cardiovascular: Rate/Rhythm: regular rate and regular rhythm Vessels: normal peripheral pulses Extremities: no edema Gastrointestinal (Abdomen): normal bowel sounds, soft, nontender, no hepatosplenomegaly Musculoskeletal: Extremities: no cyanosis and no clubbing Generally weak throughout all extremities however equal, strength 3/5 Skin: no rashes, warm and dry Neurologic: PERRL, EOMI, accommodation nl, no face palsy, no dysarthria Psychiatric: Orientation: oriented to person and cooperative; + not alert (Lethargic but arouses easily to verbal stimuli), + not oriented to place and + not oriented to time Cognition: + recent memory not intact Principal Diagnosis E coli UTI, AMS Discharge Exam General: Sitting comfortably in bed, not in distress, on room air HEENT: EOMI, DINESH, MMM Chest: Clear breath sounds bilaterally, no wheezes or crackles CVS: Regular rate and rhythm, normal heart sounds, no murmur Abdomen: Soft, non tender, not distended, normal bowel sounds Neuro: Awake, alert, oriented to self, speaking minimally Extremities: No edema Discharge Data Allergies Allergy/AdvReac Type Severity Reaction Status Date / Time iodine Allergy Severe (FROM Verified 11/03/21 11:29 CONTRAST MEDIA)sob, sneezing, wheezing Consultations 04/29/22 14:12 ED Decision to Admit Stat Ordered Studies 04/29/22 12:39 CT head/brain wo con Stat Hospital Course (1) Altered mental status: seems resolved. awake, alert, feels ready to go back to his [facility]. (2) UTI (urinary tract infection): Urine clx with Ecoli, pansensitive, On rocephin D4, continue vantin for 3 more days starting tomorrow morning. (3) Hypoglycemia: When EMS arrived, patient's BSG was 50 and received D50 with resolution. Currently BG controlled with no hypoglycemia- will not be aggressive. Recommended not to be too aggressive given his dementia and hypoglycemia- recommend cutting down his glipizide to 5 mg daily- If still low blood sugar or not eating, recommended to hold or discontinue completely- Same with his tradjenta. Follow up with PCP. (4) Diabetes mellitus, type II: Hgb A1c 6.4 03/2022 Glipizide cut down to 5 mg daily- further management and recommendation as above. (5) Hypomagnesemia: resolved (6) BPH (benign prostatic hyperplasia): Continue tamsulosin He is comfortable and stable and back to his baseline and is being discharged back to [facility]. Total Time Total Time Spent Total Time Spent (In Minutes): 38 Discharge Plan Discharge Items Patient Disposition: Personal [facility] Reason For Visit: AMS, UTI Discharge Diagnosis: E coli UTI Activity: Resume your previous activity Non-emergency contact: Primary Care Provider Call non-emergency contact if: you have any medication questions, your symptoms worsen, your pain is unusual for you and you have a fever Follow-up/Referrals: DANA SHANKS [Primary Care Provider] - Diet: Carb Consistent or DM2 Addtl Attending Provider Instructions: Continue vantin twice daily starting tomorrow morning for 3 more days You had low blood sugar when you first came- recommend cutting down your glipizide to 5 mg daily- if still having low blood sugar or not eating, recommend to discontinue or skip it. Follow up with your family doctor for further management of your diabetes. Pending Studies at Discharge: No Stand-Alone Forms: My [employer], Smoking Cessation Skilled Items Patient informed of condition?: Yes DNR: Yes Discharge Level of Care: Other Communicable Disease: No Discharge Prognosis: Stable Lines: None Urinary Catheter: No Medications and DC Order Prescriptions: New cefpodoxime 200 mg tablet 200 mg PO BID 3 Days Qty: 6 RF: 0 Continued risperidone 0.5 mg tablet 0.5 mg PO BID RF: 0 metformin 500 mg Tablet Extended Release 24 Hr 1,000 mg PO BID RF: 0 Tradjenta 5 mg Tablet 5 mg PO DAILY RF: 0 tamsulosin 0.4 mg capsule 0.4 mg PO DAILY RF: 0 clopidogrel 75 mg Tablet 75 mg PO QAM Qty: 10 RF: 0 atorvastatin 80 mg tablet 80 mg PO HS Qty: 30 RF: 0 aspirin [Kell Low Dose Aspirin] 81 mg Tablet,Delayed Release (Dr/Ec) 81 mg PO DAILY RF: 0 trazodone 50 mg tablet 25 mg PO HS PRN (Reason: Insomnia) RF: 0 Changed glipizide 10 mg Tablet Extended Release 24hr 5 mg PO DAILY Qty: 0 RF: 0 Discharge Orders: Discharge Order (Routine); Ordered 05/02/22 Ordered By: Nestor Paz Admission Data Admit Date/Time: 05/01/22 14:46 Attending Provider: Nestor Paz Admit Provider: Yossi Mas Primary Care Provider: DANA SHANKS Other Providers: Yossi Mas Other Interventions: Discharge Summary Assessment (RN) Last Done: 05/02/22 11:50
== END 2022-05-02 14:55 | disposition home or self-care (01) | DRG 689 ==
LOC: ED 12:32 → EDINP 12:32 → SUATTDRO 14:18 → 2N 16:13